=== PATIENT | female | born 1950 | race Caucasian/White ===

== ENCOUNTER 2016-11-02 13:29 | Emergency (ER) | payer OTHER ==
[~2016-11-02] VITALS: Ht 165.1 cm; Wt 70.0 kg
[2016-11-02 13:37] VITALS: BP 129/79; PULSE 68; RESP 20; TEMP 97.9; O2SAT 97
[2016-11-02] MEDS ORDERED: SODIUM CHLOR 0.9% 1000 ML INJ 1,000 ML IV SCH (13:41)
[2016-11-02] MEDS ORDERED: HYDROmorphone HCL PF 1 MG/ML VIAL IVS ONE (13:45)
[2016-11-02] MEDS ORDERED: SODIUM CHLORIDE 0.9% FLUSH 10 ML FLUSH IV FLUSH PRN (13:45)
[2016-11-02] MEDS ORDERED: ONDANSETRON HCL 4 MG/2 ML VIAL IVP ONE (13:45)
--- NOTE | 2016-11-02 13:49 | PD ---
HPI Chief Complaint: Abdominal Pain Time Seen by Provider: 13:46 Travel History International Travel<30 days: No Contact w/Intl Traveler<30days: No Traveled to known affect area: No History of Present Illness HPI 66-year-old female presents the emergency Department with sudden onset ankle lump in the lower pelvic region on the left than the right which developed while straining to have a bowel movement earlier this morning. Patient denies vomiting but has had nausea. She states she has not been passing gas since this happened. Patient has noticed a small lump in this area since recently moving to the area. Patient has never had pain prior to this event. Patient does have a history of . She denies any other significant history. She has no known drug allergies. PFSH Past Medical History Hx Anticoagulant Therapy: Yes (xarelto) Cardiovascular Problems: Yes Respiratory: Yes Social History Alcohol Use: Yes Tobacco Use: No Substance Use: No Allergies-Medications (Allergen,Severity, Reaction): Coded Allergies: No Known Allergies (Unverified , 11/02/16) Reported Meds & Prescriptions Reported Meds & Active Scripts Active Perry (Hydrocodone-Acetaminophen) 5-325 mg Tab 1-2 Tab PO Q6H PRN Ibuprofen 600 Mg Tab 600 Mg PO Q6H PRN Review of Systems ROS Limitations: Clinical Condition Except as stated in HPI: all other systems reviewed are Neg General / Constitutional: No: Fever Eyes: No: Visual changes HENT: No: Headaches Cardiovascular: No: Chest Pain or Discomfort Respiratory: No: Shortness of Breath Gastrointestinal: No: Abdominal Pain Genitourinary: No: Dysuria Musculoskeletal: No: Pain Skin: No Rash Neurologic: No: Weakness Psychiatric: No: Depression Endocrine: No: Polydipsia Hematologic/Lymphatic: No: Easy Bruising Physical Exam Exam Limitations: Clinical Condition Narrative GENERAL: Patient has moderate distress. SKIN: Warm and dry. Normal color. Normal turgor. HEAD: Atraumatic. Normocephalic. EYES: Pupils equal and round. No scleral icterus. No injection or drainage. ENT: No nasal bleeding or discharge. Mucous membranes pink and moist. Pharynx is normal. NECK: Trachea midline. Neck is supple nontender. CARDIOVASCULAR: Regular rate and rhythm. No murmurs gallops or rubs. RESPIRATORY: No accessory muscle use. Clear to auscultation. Breath sounds equal bilaterally. GASTROINTESTINAL: Abdomen soft, non-tender, nondistended. Hepatic and splenic margins not palpable. Patient is a palpable firm presumed hernia in the suprapubic region more the left than the right consistent with possible incarcerated hernia. MUSCULOSKELETAL: Extremities without clubbing, cyanosis, or edema. No obvious deformities. NEUROLOGICAL: Awake and alert. No obvious cranial nerve deficits. Motor grossly within normal limits. Five out of 5 muscle strength in the arms and legs. Normal speech. PSYCHIATRIC: Appropriate mood and affect; insight and judgment normal. Data Data Last Documented VS Vital Signs Date Time Temp Pulse Resp B/P Pulse Ox O2 Delivery O2 Flow Rate FiO2 11/02/16 13:37 97.9 68 20 129/79 97 Orders Complete Blood Count With Diff (11/02/16 13:41) Comprehensive Metabolic Panel (11/02/16 13:41) Lactic Acid (11/02/16 13:41) Prothrombin Time / Inr (Pt) (11/02/16 13:41) Iv Access Insert/Monitor (11/02/16 13:41) Ecg Monitoring (11/02/16 13:41) Oximetry (11/02/16 13:41) NPO (11/02/16 13:41) Ondansetron Inj (Zofran Inj) (11/02/16 13:45) Sodium Chlor 0.9% 1000 Ml Inj (Ns 1000 M (11/02/16 13:41) Sodium Chloride 0.9% Flush (Ns Flush) (11/02/16 13:45) Electrocardiogram (11/02/16 13:41) Hydromorphone Pf Inj (Dilaudid Pf Inj) (11/02/16 13:45) Chest, Single Ap (11/02/16 ) Oral Contrast - Adult (11/02/16 13:52) Hydromorphone Pf Inj (Dilaudid Pf Inj) (11/02/16 14:15) Propofol 200 Mg/20 Ml Inj (Diprivan 200 (11/02/16 14:30) Binder, Surg. Abdominal L/F Ea (11/02/16 15:14) Labs Laboratory Tests Test 11/02/16 11/02/16 14:00 14:30 White Blood Count 10.4 TH/MM3 Red Blood Count 4.52 MIL/MM3 Hemoglobin 13.3 GM/DL Hematocrit 40.2 % Mean Corpuscular Volume 89.0 FL Mean Corpuscular Hemoglobin 29.5 PG Mean Corpuscular Hemoglobin 33.2 % Concent Red Cell Distribution Width 13.6 % Platelet Count 204 TH/MM3 Mean Platelet Volume 10.2 FL Neutrophils (%) (Auto) 78.3 % Lymphocytes (%) (Auto) 14.9 % Monocytes (%) (Auto) 5.6 % Eosinophils (%) (Auto) 0.0 % Basophils (%) (Auto) 1.2 % Neutrophils # (Auto) 8.1 TH/MM3 Lymphocytes # (Auto) 1.5 TH/MM3 Monocytes # (Auto) 0.6 TH/MM3 Eosinophils # (Auto) 0.0 TH/MM3 Basophils # (Auto) 0.1 TH/MM3 CBC Comment DIFF FINAL Differential Comment Prothrombin Time 12.6 SEC Prothromb Time International 1.1 RATIO Ratio Sodium Level 135 MEQ/L Potassium Level 3.7 MEQ/L Chloride Level 99 MEQ/L Carbon Dioxide Level 28.1 MEQ/L Anion Gap 8 MEQ/L Blood Urea Nitrogen 14 MG/DL Creatinine 0.72 MG/DL Estimat Glomerular Filtration 81 ML/MIN Rate Random Glucose 122 MG/DL Calcium Level 9.2 MG/DL Total Bilirubin 1.1 MG/DL Aspartate Amino Transf 15 U/L (AST/SGOT) Alanine Aminotransferase 20 U/L (ALT/SGPT) Alkaline Phosphatase 99 U/L Total Protein 7.9 GM/DL Albumin 4.0 GM/DL Lactic Acid Level 1.0 mmol/L MDM Medical Decision Making Medical Screen Exam Complete: Yes Emergency Medical Condition: Yes Differential Diagnosis Acute abdominal pain. Possible hernia. Possible incarcerated hernia. Narrative Course Patient is medically stable at time of exam. Dr. Henao was called to the bedside immediately upon my exam. She agrees with my assessment. Labs ordered including CBC, CMP, lactic acid, urinalysis, and IV access is obtained. Patient is given 4 mg Zofran IV as well as 1 mg Dilantin IV. EKG and chest x-ray is ordered. 1430 hrs. hernia was reduced by Dr. Henao utilizing sedation. Please see her procedure note. Patient is felt to be stable to be discharged home with abdominal binder. Patient is to follow-up with surgical consult for possible surgical repair. Patient is sent home with ibuprofen 600 mg 4 times a day #40. Patient is also given Perry 5/325 one to 2 tabs every 6-8 hours when necessary # 20. Diagnosis Primary Impression: Hernia of anterior abdominal wall Referrals: Elvin Diaz MD call for appointment Patient Instructions: Abdominal Binder (ED), General Instructions Additional Instructions: Patient is felt to be stable to be discharged home with abdominal binder. Patient is to follow-up with surgical consult for possible surgical repair. Patient is sent home with ibuprofen 600 mg 4 times a day #40. Patient is also given Perry 5/325 one to 2 tabs every 6-8 hours when necessary # 20. Med/Other Pt SpecificInfo: Prescription(s) given Scripts Hydrocodone-Acetaminophen (Perry)5-325 mg Tab1-2 Tab PO Q6H PRN (PAIN) #20 TAB Ref 0 Prov:Ava Tariq MD 11/02/16 Ibuprofen 600 Mg Scl601 Mg PO Q6H PRN (Pain/Inflammation) #40 TAB Prov:Ava Tariq MD 11/02/16 Disposition: 01 DISCHARGE HOME Condition: Stable Ángel Jack Nov 02, 2016 13:49
--- NOTE | 2016-11-02 14:13 | RADRPT ---
EXAM DATE/TIME: 11/02/2016 13:48 [facility] COMPARISON: No previous studies available for comparison. INDICATIONS : Short of breath. MEDICAL HISTORY : None. SURGICAL HISTORY : None. ENCOUNTER: Initial ACUITY: 1 day PAIN SCORE: 9/10 LOCATION: Bilateral lower chest FINDINGS: Mild left lung base atelectasis and/or infiltrate is seen. Heart and mediastinum are unremarkable for technique. Portions of the left seventh rib is missing possibly resected surgically. CONCLUSION: Mild left lung base atelectasis and/or infiltrate is seen. Verna Gaines MD on November 02, 2016 at 14:10 Board Certified Radiologist. This report was verified electronically.
[2016-11-02] MEDS ORDERED: HYDROmorphone HCL PF 1 MG/ML VIAL IV PUSH ONE (14:15)
[2016-11-02 14:19] LABS: AUTOMATED NEUTROPHIL # 8.1 TH/MM3 (1.8-7.7); BASOPHIL # 0.1 TH/MM3 (0-0.2); BASOPHIL % 1.2 % (0.0-2.0); HEMATOCRIT 40.2 % (35.0-46.0); HEMO FLAGS DIFF FINAL; LYMPH % 14.9 % (9.0-44.0); LYMPHOCYTE # 1.5 TH/MM3 (1.0-4.8); MEAN CORPUSCULAR HEMOGLOBIN 29.5 PG (27.0-34.0); MEAN CORPUSCULAR HGB CONC 33.2 % (32.0-36.0); MONO % 5.6 % (0.0-8.0); NEUT % 78.3 % (16.0-70.0); PLATELET COUNT 204 TH/MM3 (150-450); RED BLOOD COUNT 4.52 MIL/MM3 (4.00-5.30); RED CELL DISTRIBUTION WIDTH 13.6 % (11.6-17.2); WHITE BLOOD COUNT 10.4 TH/MM3 (4.0-11.0)
[2016-11-02] MEDS ORDERED: PROPOFOL 200 MG/20 ML AMP IV ONE (14:30)
[2016-11-02 14:32] LABS: INTERNATIONAL NORMALIZED RATIO 1.1 RATIO; PROTHROMBIN TIME - PATIENT 12.6 SEC (9.8-11.6)
--- NOTE | 2016-11-02 14:39 | PD ---
Data Data Last Documented VS Vital Signs Date Time Temp Pulse Resp B/P Pulse Ox O2 Delivery O2 Flow Rate FiO2 11/02/16 13:37 97.9 68 20 129/79 97 Orders Complete Blood Count With Diff (11/02/16 13:41) Comprehensive Metabolic Panel (11/02/16 13:41) Lactic Acid (11/02/16 13:41) Prothrombin Time / Inr (Pt) (11/02/16 13:41) Urinalysis - C+S If Indicated (11/02/16 13:41) Iv Access Insert/Monitor (11/02/16 13:41) Ecg Monitoring (11/02/16 13:41) Oximetry (11/02/16 13:41) NPO (11/02/16 13:41) Ondansetron Inj (Zofran Inj) (11/02/16 13:45) Sodium Chlor 0.9% 1000 Ml Inj (Ns 1000 M (11/02/16 13:41) Sodium Chloride 0.9% Flush (Ns Flush) (11/02/16 13:45) Electrocardiogram (11/02/16 13:41) Hydromorphone Pf Inj (Dilaudid Pf Inj) (11/02/16 13:45) Chest, Single Ap (11/02/16 ) Oral Contrast - Adult (11/02/16 13:52) Hydromorphone Pf Inj (Dilaudid Pf Inj) (11/02/16 14:15) Propofol 200 Mg/20 Ml Inj (Diprivan 200 (11/02/16 14:30) Labs Laboratory Tests Test 11/02/16 14:00 White Blood Count 10.4 TH/MM3 Red Blood Count 4.52 MIL/MM3 Hemoglobin 13.3 GM/DL Hematocrit 40.2 % Mean Corpuscular Volume 89.0 FL Mean Corpuscular Hemoglobin 29.5 PG Mean Corpuscular Hemoglobin 33.2 % Concent Red Cell Distribution Width 13.6 % Platelet Count 204 TH/MM3 Mean Platelet Volume 10.2 FL Neutrophils (%) (Auto) 78.3 % Lymphocytes (%) (Auto) 14.9 % Monocytes (%) (Auto) 5.6 % Eosinophils (%) (Auto) 0.0 % Basophils (%) (Auto) 1.2 % Neutrophils # (Auto) 8.1 TH/MM3 Lymphocytes # (Auto) 1.5 TH/MM3 Monocytes # (Auto) 0.6 TH/MM3 Eosinophils # (Auto) 0.0 TH/MM3 Basophils # (Auto) 0.1 TH/MM3 CBC Comment DIFF FINAL Differential Comment Prothrombin Time 12.6 SEC Prothromb Time International 1.1 RATIO Ratio MDM Medical Record Reviewed: Yes Supervised Visit with BRAD: No Procedures Procedure Narrative After the risks and benefits were discussed the following procedure was performed: MODERATE SEDATION: The patient was placed on a groundwater monitoring technician and pulse oximetry. An ambu bag and suction was immediately available at bedside. The patient was monitored by the nurse. Oxygen saturation , heart rate and blood pressure were monitored. Procedural sedation was acheived using Propofol. The patient was observed until awake and alert. Procedural Sedation time in attendance was 10 minutes. Diagnosis Primary Impression: Hernia of anterior abdominal wall Referrals: Elvin Diaz MD call for appointment Patient Instructions: General Instructions Disposition: 01 DISCHARGE HOME Condition: Stable Bi Kelsey MD Nov 02, 2016 14:39
[2016-11-02 14:41] LABS: ANION GAP 8 MEQ/L (5-15); AST (GOT) 15 U/L (15-37); BICARBONATE 28.1 MEQ/L (21.0-32.0); BLOOD UREA NITROGEN 14 MG/DL (7-18); CHLORIDE 99 MEQ/L (98-107); GLOMERULAR FILTRATION RATE 81 ML/MIN (>89); POTASSIUM 3.7 MEQ/L (3.5-5.1); SODIUM (NA) 135 MEQ/L (136-145)
[2016-11-02 14:44] LABS: ALKALINE PHOSPHATASE 99 U/L (45-117); ALT (GPT) 20 U/L (10-53); TOTAL BILIRUBIN ADULT 1.1 MG/DL (0.2-1.0)
--- NOTE | 2016-11-02 14:45 | PD ---
Data Data Last Documented VS Vital Signs Date Time Temp Pulse Resp B/P Pulse Ox O2 Delivery O2 Flow Rate FiO2 11/02/16 13:37 97.9 68 20 129/79 97 Orders Complete Blood Count With Diff (11/02/16 13:41) Comprehensive Metabolic Panel (11/02/16 13:41) Lactic Acid (11/02/16 13:41) Prothrombin Time / Inr (Pt) (11/02/16 13:41) Iv Access Insert/Monitor (11/02/16 13:41) Ecg Monitoring (11/02/16 13:41) Oximetry (11/02/16 13:41) NPO (11/02/16 13:41) Ondansetron Inj (Zofran Inj) (11/02/16 13:45) Sodium Chlor 0.9% 1000 Ml Inj (Ns 1000 M (11/02/16 13:41) Sodium Chloride 0.9% Flush (Ns Flush) (11/02/16 13:45) Electrocardiogram (11/02/16 13:41) Hydromorphone Pf Inj (Dilaudid Pf Inj) (11/02/16 13:45) Chest, Single Ap (11/02/16 ) Oral Contrast - Adult (11/02/16 13:52) Hydromorphone Pf Inj (Dilaudid Pf Inj) (11/02/16 14:15) Propofol 200 Mg/20 Ml Inj (Diprivan 200 (11/02/16 14:30) Labs Laboratory Tests Test 11/02/16 14:00 White Blood Count 10.4 TH/MM3 Red Blood Count 4.52 MIL/MM3 Hemoglobin 13.3 GM/DL Hematocrit 40.2 % Mean Corpuscular Volume 89.0 FL Mean Corpuscular Hemoglobin 29.5 PG Mean Corpuscular Hemoglobin 33.2 % Concent Red Cell Distribution Width 13.6 % Platelet Count 204 TH/MM3 Mean Platelet Volume 10.2 FL Neutrophils (%) (Auto) 78.3 % Lymphocytes (%) (Auto) 14.9 % Monocytes (%) (Auto) 5.6 % Eosinophils (%) (Auto) 0.0 % Basophils (%) (Auto) 1.2 % Neutrophils # (Auto) 8.1 TH/MM3 Lymphocytes # (Auto) 1.5 TH/MM3 Monocytes # (Auto) 0.6 TH/MM3 Eosinophils # (Auto) 0.0 TH/MM3 Basophils # (Auto) 0.1 TH/MM3 CBC Comment DIFF FINAL Differential Comment Prothrombin Time 12.6 SEC Prothromb Time International 1.1 RATIO Ratio Sodium Level 135 MEQ/L Potassium Level 3.7 MEQ/L Chloride Level 99 MEQ/L Carbon Dioxide Level 28.1 MEQ/L Anion Gap 8 MEQ/L Blood Urea Nitrogen 14 MG/DL Creatinine 0.72 MG/DL Estimat Glomerular Filtration 81 ML/MIN Rate Random Glucose 122 MG/DL Calcium Level 9.2 MG/DL Aspartate Amino Transf 15 U/L (AST/SGOT) Albumin 4.0 GM/DL MDM Supervised Visit with BRAD: Yes Narrative Course I, Dr. Tariq, have reviewed the advance practice practioner's documentation and am in agreement, met with the patient face to face, made the diagnosis, and the medical decision making was done by me. *My assessment and Findings: 66-year-old female here with complaint of pain in the abdomen and lump in the lower pelvic region after straining while having a bowel movement this morning. No flatus since, some nausea but no vomiting. On exam patient has palpable hernia in the right suprainguinal region. The remainder of her abdominal exam is unremarkable though she has quite significant tenderness to palpation in the hernia region. Consistent with incarcerated hernia. She was given Dilaudid 1 mg without improvement of her pain. She was given second dose of Dilaudid 1 mg with really little improvement of her pain and I was not able to reduce due to pain management. Patient was therefore sedated, please see procedure note, and reduction performed successfully. Patient tolerated procedure well. After which time patient felt improved, was able tolerate oral challenge and will be discharged home with hernia belt and outpatient surgery follow-up for surgical repair. Procedures Procedure Narrative Slow steady pressure was applied over the hernia sac with successful reduction of bowel contents into the peritoneal compartment. Diagnosis Primary Impression: Hernia of anterior abdominal wall Referrals: Elvin Diaz MD call for appointment Patient Instructions: General Instructions Disposition: 01 DISCHARGE HOME Condition: Stable Ava Tariq MD Nov 02, 2016 14:45
[2016-11-02] MEDS ORDERED: IBUP-232 PO (16:00)
[2016-11-02] MEDS ORDERED: NORC5TAB PO (16:00)
[2016-11-02 16:20] VITALS: RESP 18
== END 2016-11-02 18:13 | disposition home or self-care (01) ==
LOC: NEPE 13:29
DX: K43.9 Ventral hernia without obstruction or gangrene (principal); Z79.01 Long term (current) use of anticoagulants
CPT/HCPCS: 49999; 71010; 80053; 83605; 85025; 85610; 96374; 96375; 99156; 99284; J1170; J2405; J7030

== ENCOUNTER 2018-05-12 19:37 | Inpatient (IN) ==
[2018-05-12] MEDS ORDERED: Sod Chloride 0.9% Inj 1,000 ML IV.SIG ONE (20:18)
--- NOTE | 2018-05-12 20:37 | ED ---
HPI General Chief Complaint: Abdominal Pain Stated Complaint: Constipation x 1 wk Time Seen by Provider: 05/12/18 19:59 Source: patient Mode of arrival: ambulatory Limitations: no limitations History of Present Illness HPI narrative: Patient is a 67-year-old female, past medical history significant for COPD, hypertension, hypothyroidism, bilateral inguinal hernias, who presents with complaint of abdominal pain and distention. She states that approximately 6-7 days ago she did a bowel cleanout and prep for colonoscopy. The next day she had a colonoscopy and has not had a bowel movement since. She is not passing gas. She has had nausea but no vomiting. She feels that her abdomen has been gradually distending and causing more discomfort. She has no appetite. No fever nor chills. This has never happened before. No chest pain or shortness of breath. MD complaint: Reports abdominal pain Pain Consistency: constant Location: Reports diffuse Severity: moderate Quality: Reports fullness Radiation: Reports none Migration to: Reports no migration Relieving factors: nothing Exacerbating factors: nothing Associated symptoms: Reports nausea and constipation Related Data Home Medications Medication Instructions Recorded Confirmed amlodipine 5 mg PO DAILY 05/09/18 05/12/18 aspirin 81 mg PO DAILY 05/09/18 05/12/18 budesonide-formoterol [Symbicort] 2 puff INHALATION BID 05/09/18 05/12/18 carvedilol 12.5 mg PO BID 05/09/18 05/12/18 hydrochlorothiazide 12.5 mg PO DAILY 05/09/18 05/12/18 levothyroxine 25 mcg PO DAILY 05/09/18 05/12/18 omeprazole 20 mg PO DAILY 05/09/18 05/12/18 quetiapine 200 mg PO DAILY 05/09/18 05/12/18 simvastatin 20 mg PO QPM 05/09/18 05/12/18 Previous Rx's Medication Instructions Recorded tramadol [Ultram] 50 mg PO Q6H PRN #12 tab 05/09/18 Allergies Allergy/AdvReac Type Severity Reaction Status Date / Time No Known Allergies Allergy Verified 05/12/18 19:45 Review of Systems ROS: all other systems reviewed are negative [facility] Medical History Medical History Bilateral inguinal hernia (Acute) COPD (chronic obstructive pulmonary disease) (Acute) HTN (hypertension) (Acute) Hx pulmonary embolism (Acute) Hypothyroid (Acute) Insomnia (Acute) Surgical History Surgical History H/O breast augmentation (Acute) H/O section (Acute) H/O lumbar discectomy (Acute) History of back surgery (Acute) History of repair of hiatal hernia (Acute) Social History Social History Substance History: No History of Abuse Second Hand Smoke Exposure: No Smoking Status: Never smoker How Often Do You Have a Drink Containing Alcohol: Never Recent Travel in [facility] within the Last 8 Weeks: No Recent Out of Country Travel within the Last 8 Weeks: No Immunization History Tetanus Immunization: <5 Years Exam Narrative Exam Narrative: GENERAL: Well-appearing female in no acute distress SKIN: Focused skin assessment warm/dry. No rashes. HEAD: Atraumatic. Normocephalic. EYES: Pupils equal and round. No scleral icterus. No injection or drainage. ENT: No nasal bleeding or discharge. Mucous membranes pink and dry. NECK: Trachea midline. No JVD. CARDIOVASCULAR: Regular rate and rhythm. No murmur appreciated. Intact and equal peripheral pulses. Normal cap refill. RESPIRATORY: No accessory muscle use. Clear to auscultation. Breath sounds equal bilaterally. GASTROINTESTINAL: Abdomen soft, distended with slight tenderness. Hepatic and splenic margins not palpable. MUSCULOSKELETAL: No obvious deformities. No clubbing. No cyanosis. No edema. NEUROLOGICAL: Awake and alert. No obvious cranial nerve deficits. Motor grossly within normal limits. Normal speech. PSYCHIATRIC: Appropriate mood and affect; insight and judgment normal. Course Initial Documented Vital Signs Temperature 98.7 F 05/12/18 19:46 Pulse Rate 115 H 05/12/18 19:46 Respiratory Rate 20 05/12/18 19:46 Blood Pressure 104/75 05/12/18 19:46 Pulse Oximetry 97 05/12/18 19:46 Last Documented Vital Signs Temperature 98.7 F 05/12/18 19:46 Pulse Rate 72 05/12/18 21:03 Respiratory Rate 16 05/12/18 21:03 Blood Pressure 127/62 05/12/18 21:03 Pulse Oximetry 98 05/12/18 21:03 Medical Decision Making MDM Narrative Medical decision making narrative: Patient is a 67-year-old female who presents with complaint of abdominal pain with distention and nausea but no vomiting in addition to constipation and obstipation. She appears well and is hemodynamically stable. She has not peritonitic on exam. Labs reveal slightly decreased potassium but are otherwise relatively unremarkable except for ketones in the urine. CT shows a small bowel obstruction. NG tube has been placed for decompression and she has been admitted to the hospitalist service. Dr. Sena, hospitalist on-call, agreed to admission. General surgery will be consulted in the morning. Medical Screen Exam Complete: Yes Emergency Medical Condition: Yes Differential Diagnosis Differential Diagnosis: Differential diagnosis includes but is not limited to volvulus, small bowel obstruction, large bowel obstruction, constipation, impaction. Medical Records Medical records reviewed: Yes I reviewed the patient's medical records. Lab Data Lab results reviewed: Yes I reviewed the patient's lab results. Result diagrams: 05/12/18 20:37 05/12/18 20:37 Lab Results 05/12/18 05/12/18 05/12/18 Range/Units 20:37 20:37 20:37 CBC w Diff Slide review pending WBC 4.1 (4.0-11.0) th/mm3 RBC 4.19 (4.00-5.30) mil/mm3 Hgb 13.2 (11.6-15.3) gm/dL Hct 39.3 (35.0-46.0) % MCV 93.7 (80.0-100.0) fL MCH 31.5 (27.0-34.0) pg MCHC 33.6 (32.0-36.0) % RDW 12.1 (11.6-17.2) % Plt Count 301 D (150-450) th/mm3 MPV 8.9 (7.0-11.0) fL WBC Differential Manual diff final Seg Neuts % (Manual) 56 (16-70) % Band Neuts % (Manual) 9 H (0-6) % Lymphocytes % (Manual) 13 (9-44) % Monocytes % (Manual) 21 H (0-8) % Basophils % (Manual) 1 (0-2) % Abs Neuts (Manual) 2.7 (1.8-7.7) th/mm3 Differential Comment . Platelet Estimate Normal (Normal) Platelet Morphology Normal (Normal) Sodium 135 L (136-145) meq/L Potassium 3.1 L (3.5-5.1) meq/L Chloride 101 (98-107) meq/L Carbon Dioxide 19.3 L (21.0-32.0) meq/L Anion Gap 15 (5-15) meq/L BUN 9 (7-18) mg/dL Creatinine 0.66 (0.50-1.00) mg/dL Estimated GFR Greater than 89 (>89) mL/min Random Glucose 97 (74-106) mg/dL Lactic Acid 1.4 (0.4-2.0) mmol/L Calcium 8.1 L (8.5-10.1) mg/dL Magnesium 1.9 (1.5-2.5) mg/dL Total Bilirubin 0.7 (0.2-1.0) mg/dL AST 18 (15-37) U/L ALT 19 (10-53) U/L Alkaline Phosphatase 118 H (45-117) U/L Total Protein 6.9 (6.4-8.2) g/dL Albumin 3.0 L (3.4-5.0) g/dL Lipase 166 (73-393) U/L Urine Color (Yellw/Straw) Urine Clarity (Clear) Urine pH (5.0-8.5) Ur Specific [place] (1.002-1.035) Urine Protein (Neg-Trace) mg/dL Urine Glucose (UA) (Negative) mg/dL Urine Ketones (Negative) mg/dL Urine Occult Blood (Negative) Urine Nitrate (Negative) Urine Bilirubin (Negative) Urine Ictotest (Negative) Urine Urobilinogen (Less than 2) mg/dL Ur Leukocyte Esterase (Negative) Urine WBC (0-5) /hpf Ur Squamous Epith Cells (0-5) /hpf Urine Bacteria (None) /hpf Hyaline Casts (0-3) /lpf Urine Mucus (Occasional) /lpf Micro UA Comment Ur Microscopic Review Urine Culture Comments 05/12/18 Range/Units 21:48 CBC w Diff WBC (4.0-11.0) th/mm3 RBC (4.00-5.30) mil/mm3 Hgb (11.6-15.3) gm/dL Hct (35.0-46.0) % MCV (80.0-100.0) fL MCH (27.0-34.0) pg MCHC (32.0-36.0) % RDW (11.6-17.2) % Plt Count (150-450) th/mm3 MPV (7.0-11.0) fL WBC Differential Seg Neuts % (Manual) (16-70) % Band Neuts % (Manual) (0-6) % Lymphocytes % (Manual) (9-44) % Monocytes % (Manual) (0-8) % Basophils % (Manual) (0-2) % Abs Neuts (Manual) (1.8-7.7) th/mm3 Differential Comment Platelet Estimate (Normal) Platelet Morphology (Normal) Sodium (136-145) meq/L Potassium (3.5-5.1) meq/L Chloride (98-107) meq/L Carbon Dioxide (21.0-32.0) meq/L Anion Gap (5-15) meq/L BUN (7-18) mg/dL Creatinine (0.50-1.00) mg/dL Estimated GFR (>89) mL/min Random Glucose (74-106) mg/dL Lactic Acid (0.4-2.0) mmol/L Calcium (8.5-10.1) mg/dL Magnesium (1.5-2.5) mg/dL Total Bilirubin (0.2-1.0) mg/dL AST (15-37) U/L ALT (10-53) U/L Alkaline Phosphatase (45-117) U/L Total Protein (6.4-8.2) g/dL Albumin (3.4-5.0) g/dL Lipase (73-393) U/L Urine Color Yellow (Yellw/Straw) Urine Clarity Clear (Clear) Urine pH 6.0 (5.0-8.5) Ur Specific [place] Greater/equal 1.030 (1.002-1.035) Urine Protein Negative (Neg-Trace) mg/dL Urine Glucose (UA) Negative (Negative) mg/dL Urine Ketones 80 or greater H (Negative) mg/dL Urine Occult Blood Negative (Negative) Urine Nitrate Negative (Negative) Urine Bilirubin Negative (Negative) Urine Ictotest Negative (Negative) Urine Urobilinogen 0.2 (Less than 2) mg/dL Ur Leukocyte Esterase Negative (Negative) Urine WBC 0-5 (0-5) /hpf Ur Squamous Epith Cells 0-5 (0-5) /hpf Urine Bacteria Rare H (None) /hpf Hyaline Casts 4-10 H (0-3) /lpf Urine Mucus Few H (Occasional) /lpf Micro UA Comment Culture not ind Ur Microscopic Review Microscopic reviewed Urine Culture Comments Culture not ind Imaging Data Attestation: I personally reviewed and interpreted this imaging study as follows : Radiologist's impression: Abdomen/Pelvis CT 05/12/18 20:18 CONCLUSION: 1. CT findings of a small bowel obstruction with a transition identified in the right lateral abdomen in the region of the terminal ileum. The distal terminal ileum is completely decompressed. 2. Right inguinal hernia measuring 5 cm in diameter again contains fat and fluid. It also appears to contain the right-sided dome or urachus of the urinary bladder. 3. Small moderate-sized hiatal hernia. Discharge Plan Discharge Disposition Patient Disposition: 30 Still Patient Discharge Condition Condition: Stable Discharge Details Diagnosis: Small bowel obstruction Physicians Team ED Provider: Sri Rascon Primary Care Provider: NON STAFF,PROVIDER Rxs /Orders / Referrals /Forms Prescriptions: No Action levothyroxine 25 mcg Tablet 25 mcg PO DAILY RF: 0 budesonide-formoterol [Symbicort] 160-4.5 mcg/actuation Hfa Aerosol Inhaler 2 puff INHALATION BID RF: 0 carvedilol 12.5 mg Tablet 12.5 mg PO BID RF: 0 quetiapine 200 mg Tablet 200 mg PO DAILY RF: 0 amlodipine 5 mg Tablet 5 mg PO DAILY RF: 0 simvastatin 20 mg Tablet 20 mg PO QPM RF: 0 aspirin 81 mg Tablet,Chewable 81 mg PO DAILY RF: 0 hydrochlorothiazide 12.5 mg Tablet 12.5 mg PO DAILY RF: 0 omeprazole 20 mg Tablet,Delayed Release (Dr/Ec) 20 mg PO DAILY RF: 0 tramadol [Ultram] 50 mg tablet 50 mg PO Q6H PRN (Reason: pain) Qty: 12 RF: 0 Discharge Interventions Interventions: Vital Signs Last Done: 05/12/18 21:03 Status ED Status: With Doctor
[2018-05-12 20:56] LABS: Chloride 101 meq/L (98-107); Potassium 3.1 meq/L (3.5-5.1); Sodium 135 meq/L (136-145)
[2018-05-12 20:57] LABS: Hematocrit 39.3 % (35.0-46.0); Hemoglobin 13.2 gm/dL (11.6-15.3); Mean Corpuscular HGB Conc 33.6 % (32.0-36.0); Mean Corpuscular Hemoglobin 31.5 pg (27.0-34.0); Mean Corpuscular Volume 93.7 fL (80.0-100.0); Mean Platelet Volume 8.9 fL (7.0-11.0); Platelet Count 301 th/mm3 (150-450); Red Blood Count 4.19 mil/mm3 (4.00-5.30); Red Cell Distribution Width 12.1 % (11.6-17.2); White Blood Count 4.1 th/mm3 (4.0-11.0)
[2018-05-12 20:59] LABS: Calcium 8.1 mg/dL (8.5-10.1)
[2018-05-12 21:36] LABS: Lymphocytes 13 % (9-44); Monocytes 21 % (0-8)
[2018-05-12 21:38] LABS: Platelet Estimate Normal (Normal); Platelet Morphology Normal (Normal)
[2018-05-12 21:48] LABS: Alanine Aminotransferase 19 U/L (10-53); Alkaline Phosphatase 118 U/L (45-117); Anion Gap 15 meq/L (5-15); Aspartate Aminotransferase 18 U/L (15-37); Blood Urea Nitrogen 9 mg/dL (7-18); Carbon Dioxide 19.3 meq/L (21.0-32.0); Glomerular Filtration Rate Greater Than 89 mL/min (>89); Glucose,Random 97 mg/dL (74-106); Lipase 166 U/L (73-393); Magnesium 1.9 mg/dL (1.5-2.5); Total Protein 6.9 g/dL (6.4-8.2)
[2018-05-12 21:54] LABS: Clarity,Urine Clear (Clear); Color,Urine Yellow (Yellw/Straw); Glucose,Urine (UA) Negative (Negative); Leukocyte Esterase,Urine Negative (Negative); Nitrite,Urine Negative (Negative); Specific Gravity,Urine Greater/Equal 1.030 (1.002-1.035); Urobilinogen,Urine 0.2 mg/dL (Less than 2)
[2018-05-12 21:55] LABS: Bilirubin,Urine Negative (Negative); Ictotest,Urine Negative (Negative)
[2018-05-12 21:58] LABS: Squamous Epithelial Cell,Urine 0-5 /hpf (0-5); WBC,Urine 0-5 /hpf (0-5)
[2018-05-12 21:59] LABS: Bacteria,Urine Rare /hpf; Mucus,Urine Few /lpf (Occasional)
--- NOTE | 2018-05-12 22:41 | CT ---
EXAM DATE: 05/12/2018 10:12 PM EDT AGE/SEX: 67 years / Female INDICATIONS: Abdominal pain. Distention. Constipation. Weakness. CLINICAL DATA: This is the patient's initial encounter. Patient reports that signs and symptoms have been present for 3 days and indicates a pain score of 8/10. MEDICAL/SURGICAL HISTORY: Hypertension. Chronic obstructive pulmonary disease. Inguinal hernia . section. Discectomy, lumbar. Hiatal hernia repair. ORAL CONTRAST: No oral contrast ingested. RADIATION DOSE: 11.58 CTDI (mGy) COMPARISON: [facility] [place], CT ABDOMEN & PELVIS W/O CONTRAST, 05/09/2018. . TECHNIQUE: Multiple contiguous axial images were obtained through the abdomen and pelvis following b olus infusion of 100 ml Omnipaque 350 (iohexol) nonionic water-soluble contrast as a single exam do se. No oral contrast ingested. Using automated exposure control and adjustment of the mA and/or kV a ccording to patient size, radiation dose was kept as low as reasonably achievable to obtain optimal d iagnostic quality images. DICOM format image data is available electronically for review and compari son. FINDINGS: Lower Lungs: Atelectatic changes in both lung bases, left greater than right. Bilateral breast augmen tation. Small to moderate size hiatal hernia. Liver: The liver has a homogeneous density without space-occupying lesion. There is no dilation of th e biliary tree. Spleen: Homogeneous density without enlargement. Pancreas: Unremarkable without mass or calcification. Kidneys: Normal in size and shape. No evidence of mass or hydronephrosis. Adrenal Glands: Unremarkable. Aorta: The aorta and proximal iliac vessels are grossly unremarkable without aneurysmal dilation. Bowel/Mesentery: There are now CT findings of a small bowel obstruction with a transition laterally in the right midabdomen. This is in the region of the terminal ileum. The terminal ileum is completel y decompressed the bowel proximal to this area markedly distended. Abdominal Wall: Intact. Retroperitoneum: No evidence of adenopathy in the retrocrural, para-aortic, or deep pelvic regions. Bladder: Contours are smooth. Reproductive Organs: No abnormal masses or calcifications seen. Inguinal: As seen previously, there is a right inguinal hernia which contains fat and fluid measurin g about 5 cm in diameter. This appears to contain the right dome of the urinary bladder Bony Structures: Old healed fracture deformities of the right thoracic ribs. Post Contrast: No abnormal areas of enhancement seen. CONCLUSION: 1. CT findings of a small bowel obstruction with a transition identified in the right lateral abdome n in the region of the terminal ileum. The distal terminal ileum is completely decompressed. 2. Right inguinal hernia measuring 5 cm in diameter again contains fat and fluid. It also appears to contain the right-sided dome or urachus of the urinary bladder. 3. Small moderate-sized hiatal hernia. Electronically signed by: Hay Amaya MD 05/12/2018 10:40 PM EDT
[2018-05-12] MEDS ORDERED: Bisacodyl 10 MG Supp RECTAL PRN (22:54)
[2018-05-12] MEDS: Sod Chloride 0.9% Inj 1,000 ML IV.CONT SCH (23:43)
[2018-05-13] MEDS: Morphine Sulfate Inj 2 MG/ML Vial IV.PUSH PRN ×5 (00:32→20:11)
[2018-05-13 06:46] LABS: Baso % (Auto) 0.8 % (0.0-2.0); Eos % (Auto) 0.1 % (0.0-4.0); Hematocrit 31.7 % (35.0-46.0); Hemoglobin 10.6 gm/dL (11.6-15.3); Lymph # (Auto) 0.8 th/mm3 (1.0-4.8); Lymph % (Auto) 22.1 % (9.0-44.0); Mean Corpuscular HGB Conc 33.6 % (32.0-36.0); Mean Corpuscular Hemoglobin 31.8 pg (27.0-34.0); Mean Corpuscular Volume 94.8 fL (80.0-100.0); Mean Platelet Volume 8.6 fL (7.0-11.0); Mono # (Auto) 0.8 th/mm3 (0.0-0.9); Mono % (Auto) 23.6 % (0.0-8.0); Neut # (Auto) 1.8 th/mm3 (1.8-7.7); Neut % (Auto) 53.4 % (16.0-70.0); Platelet Count 276 th/mm3 (150-450); Red Blood Count 3.34 mil/mm3 (4.00-5.30); Red Cell Distribution Width 12.1 % (11.6-17.2); White Blood Count 3.4 th/mm3 (4.0-11.0)
[2018-05-13 07:14] LABS: Alanine Aminotransferase 15 U/L (10-53); Albumin 2.6 g/dL (3.4-5.0); Alkaline Phosphatase 93 U/L (45-117); Anion Gap 15 meq/L (5-15); Aspartate Aminotransferase 14 U/L (15-37); Blood Urea Nitrogen 7 mg/dL (7-18); Calcium 7.4 mg/dL (8.5-10.1); Carbon Dioxide 18.3 meq/L (21.0-32.0); Chloride 108 meq/L (98-107); Glomerular Filtration Rate Greater Than 89 mL/min (>89); Glucose,Random 85 mg/dL (74-106); Sodium 141 meq/L (136-145); Total Protein 5.7 g/dL (6.4-8.2)
[2018-05-13 07:31] LABS: Lymphocytes 26 % (9-44); Monocytes 9 % (0-8)
[2018-05-13 07:32] LABS: RBC Morphology Normal (Normal)
[2018-05-13] MEDS: Senna/Docusate Sodium 8.6/50 MG Tablet PO SCH (08:43)
[2018-05-13] MEDS ORDERED: Senna/Docusate Sodium 8.6/50 MG Tablet PO SCH (09:00)
--- NOTE | 2018-05-13 10:12 | P.HPIM ---
History of Present Illness Primary Care Physician: PROVIDER NON STAFF Chief Complaint: constipation History of Present Illness: patient is a 67 y/o female with history of hypertension, COPD , hernia repair, who presented to ER with constipation.she says that she hasn't had any bowel movement since last week and she couldn't pass any gas. later she started to have generalized abdominal discomfort. she had some nausea but with no emesis. she denies any fever or chills. Inpatient Certification: I certify that the inpatient services were ordered in accordance with Medicare regulations governing the order. This includes certification that hospital inpatient services are reasonable and necessary and in the case of services not specified as inpatient-only under 42 CFR 419.22(n), that they are appropriately provided as inpatient services in accordance to with the 2-midnight benchmark under 43 CFR 412.3(e) Estimated Total Length of Stay (Days): 2 Plans for Post Hospital Care: Not yet determined Review of Systems All other systems reviewed negative except as stated in HPI PMFSH - History History Provided By: Patient - Medical History Medical History: Medical History (Last Reviewed 05/13/18 @ 10:10 by Curt Babcock MD) Bilateral inguinal hernia COPD (chronic obstructive pulmonary disease) HTN (hypertension) Hx pulmonary embolism Hypothyroid Insomnia - Surgical History Surgical History: Surgical History (Last Reviewed 05/13/18 @ 10:10 by Curt Babcock MD) H/O breast augmentation H/O section H/O lumbar discectomy History of back surgery History of repair of hiatal hernia - Family History Family History: Family History (Last Updated 05/13/18 @ 10:10 by Curt Babcock MD) Other No pertinent family history - Tobacco History Second Hand Smoke Exposure: No Tobacco Use In Past 30 Days: No Smoking Status: Former smoker - Alcohol History How Often Do You Have a Drink Containing Alcohol: Never - Substance Use History Substance History: No History of Abuse - Travel History Recent Travel in the [place] Within the Last 8 Weeks: No Recent Travel Out of the Country Within the Last 8 Weeks: No - Immunization History Tetanus Immunization: <5 Years Hx Influenza Vaccine This Season: No Medications and Allergies Active Medications: Active Medications Al Hydroxide/Mg Hydroxide (Milk Of Magntrish Liq) 30 ml PO Q12H PRN PRN Reason: Mild Constipation Bisacodyl (Dulcolax Supp) 10 mg RECTAL DAILY PRN PRN Reason: SEVERE CONSITIPATION Budesonide/Formoterol Fumarate (Symbicort 160/4.5 Mcg Inh) 2 puff INH BID AMBROCIO Sodium Chloride (Ns Inj) 1,000 mls @ 100 mls/hr IV.CONT .Q10H AMBROCIO Last Infusion: 05/13/18 06:21 Dose: 100 mls/hr Potassium Chloride (Kcl 20 Meq Premix Inj) 20 meq in 100 mls @ 50 mls/hr IV.SIG Q2H AMBROCIO Stop: 05/13/18 14:06 Lactulose (Lactulose Liq) 30 ml PO DAILY PRN PRN Reason: SEVERE CONSITIPATION Metoclopramide HCl (Reglan Inj) 10 mg IV.PUSH Q8H AMBROCIO; Protocol Last Admin: 05/13/18 06:22 Dose: 10 mg Morphine Sulfate (Morphine Inj) 2 mg IV.PUSH Q4H PRN PRN Reason: PAIN 6-10 Last Admin: 05/13/18 06:22 Dose: 2 mg Ondansetron HCl (Zofran Inj) 4 mg IV.PUSH Q6H PRN PRN Reason: NAUSEA OR VOMITING Last Admin: 05/13/18 00:32 Dose: 4 mg Senna/Docusate Sodium (Samantha-Colace) 1 tab PO BID AMBROCIO Last Admin: 05/13/18 08:43 Dose: Not Given Sennosides (Senokot) 17.2 mg PO Q12H PRN PRN Reason: Moderate Constipation Sodium Chloride (Ns Flush) 2 ml IV.FLUSH PRN PRN PRN Reason: FLUSH AFTER USING IV ACCESS Allergies Allergy/AdvReac Type Severity Reaction Status Date / Time No Known Allergies Allergy Verified 05/12/18 19:45 Home Medications Medication Instructions Recorded Confirmed Type amlodipine 5 mg PO DAILY 05/09/18 05/12/18 History aspirin 81 mg PO DAILY 05/09/18 05/12/18 History budesonide-formoterol [Symbicort] 2 puff INHALATION BID 05/09/18 05/12/18 History carvedilol 12.5 mg PO BID 05/09/18 05/12/18 History hydrochlorothiazide 12.5 mg PO DAILY 05/09/18 05/12/18 History levothyroxine 25 mcg PO DAILY 05/09/18 05/12/18 History omeprazole 20 mg PO DAILY 05/09/18 05/12/18 History quetiapine 200 mg PO HS 05/09/18 05/13/18 History simvastatin 20 mg PO QPM 05/09/18 05/12/18 History Exam Vital signs: Vital Signs 05/12/18 19:46 05/12/18 21:03 05/13/18 00:00 Temperature 98.7 F 98.8 F Pulse Rate 115 H 72 91 H Respiratory Rate 20 16 16 Blood Pressure 104/75 127/62 119/70 Pulse Oximetry 97 98 96 05/13/18 08:00 Temperature 98.5 F Pulse Rate 90 Respiratory Rate 20 Blood Pressure 104/62 Pulse Oximetry 96 Intake & Output 05/12/18 05/13/18 05/13/18 18:59 06:59 18:59 Intake Total 1616 / 1616 0 / 0 Balance 1616 / 1616 0 / 0 Weight 71 kg Intake: IV 1616 / 1616 NS Inj 1,000 ML @ 100 mls/hr IV 616 / 616 .CONT .Q10H AMBROCIO Rx#:[id number] NS Inj 1,000 ML @ Wide Open IV. 1000 / 1000 SIG BOLUS ONE Rx#:[id number] Oral 0 / 0 Other: # Voids 2 Date of Last Bowel Movement 05/06/18 05/06/18 Weight On Admission 71 kg - Constitutional no acute distress - Routine HEENT Exam Eye: Present: PERRL - Routine Neck Exam Present: supple - Routine Respiratory Exam Present: CTA bilaterally - Routine Cardiovascular Exam Present: RRR - Routine Abdominal Exam Present: soft, tenderness (mild generalized abdominal tenderness.) - Routine Neurological Exam Present: alert, oriented X3 Results - Labs CBC & Chem 7: 05/13/18 06:17 05/13/18 06:17 Labs: Short CBC 05/12/18 05/13/18 Range/Units 20:37 06:17 WBC 4.1 3.4 L (4.0-11.0) th/mm3 Hgb 13.2 10.6 L D (11.6-15.3) gm/dL Hct 39.3 31.7 L (35.0-46.0) % Plt Count 301 D 276 (150-450) th/mm3 BMP 05/12/18 05/13/18 20:37 06:17 Sodium 135 L 141 Potassium 3.1 L 3.0 L Chloride 101 108 H Carbon Dioxide 19.3 L 18.3 L BUN 9 7 Creatinine 0.66 0.49 L Calcium 8.1 L 7.4 L* Liver Function 05/12/18 05/13/18 Range/Units 20:37 06:17 Total Bilirubin 0.7 0.7 (0.2-1.0) mg/dL AST 18 14 L (15-37) U/L ALT 19 15 (10-53) U/L Alkaline Phosphatase 118 H 93 (45-117) U/L Albumin 3.0 L 2.6 L (3.4-5.0) g/dL Urine 05/12/18 Range/Units 21:48 Urine Color Yellow (Yellw/Straw) Urine Clarity Clear (Clear) Urine pH 6.0 (5.0-8.5) Ur Specific [place] Greater/equal 1.030 (1.002-1.035) Urine Protein Negative (Neg-Trace) mg/dL Urine Glucose (UA) Negative (Negative) mg/dL - Imaging Impressions Abdomen/Pelvis CT 05/12/18 20:18 CONCLUSION: 1. CT findings of a small bowel obstruction with a transition identified in the right lateral abdomen in the region of the terminal ileum. The distal terminal ileum is completely decompressed. 2. Right inguinal hernia measuring 5 cm in diameter again contains fat and fluid. It also appears to contain the right-sided dome or urachus of the urinary bladder. 3. Small moderate-sized hiatal hernia. Caprini VTE Risk Assessment Caprini VTE Risk Assessment: Moderate/High Risk (score >= 2) Caprini Risk Assessment Model: Point Value = 1 Point Value = 2 Point Value = 3 Point Value = 5 Age 41-60 Minor surgery BMI > 25 kg/m2 Swollen legs Varicose veins or History of unexplained or recurrent spontaneous Oral contraceptives or hormone replacement Sepsis (< 1 month) Serious lung disease, including pneumonia (< 1 month) Abnormal pulmonary function Acute myocardial infarction Congestive heart failure (< 1 month) History of inflammatory bowel disease Medical patient at bed rest Age 61-74 Arthroscopic surgery Major open surgery (> 45 min) Laparoscopic surgery (> 45 min) Malignancy Confined to bed (> 72 hours) Immobilizing plaster cast Central venous access Age >= 75 History of VTE Family history of VTE Factor V Leiden Prothrombin [id number] Lupus anticoagulant Anticardiolipin antibodies Elevated serum homocysteine Heparin-induced thrombocytopenia Other congenital or acquired thrombophilia Stroke (< 1 month) Elective arthroplasty Hip, pelvis, or leg fracture Acute spinal cord injury (< 1 month) Prophylaxis Regimen: Total Risk Factor Score Risk Level Prophylaxis Regimen 0-1 Low Early ambulation 2 Moderate Order ONE of the following: *Sequential Compression Device (SCD) *Heparin 5000 units SQ BID 3-4 Higher Order ONE of the following medications: *Heparin 5000 units SQ TID *Enoxaparin/Lovenox 40 mg SQ daily (WT < 150 kg, CrCl > 30 mL/min) *Enoxaparin/Lovenox 30 mg SQ daily (WT < 150 kg, CrCl > 10-29 mL/min) *Enoxaparin/Lovenox 30 mg SQ BID (WT < 150 kg, CrCl > 30 mL/min) AND/OR *Sequential Compression Device (SCD) 5 or more Highest Order ONE of the following medications: *Heparin 5000 units SQ TID (Preferred with Epidurals) *Enoxaparin/Lovenox 40 mg SQ daily (WT < 150 kg, CrCl > 30 mL/min) *Enoxaparin/Lovenox 30 mg SQ daily (WT < 150 kg, CrCl > 10-29 mL/min) *Enoxaparin/Lovenox 30 mg SQ BID (WT < 150 kg, CrCl > 30 mL/min) AND *Sequential Compression Device (SCD) Assessment and Plan - Plan A/P - small bowel obstruction keep NPO- continue with supportive care with IV fluid, pain control and antiemetics as needed- surgery consulted. -hypokalemia; will replace and monitor. -COPD; resume home inhalers- neb treatment as needed. -hypertension/ hypothyroidism; resume home meds when started on diet. -DVT prophylaxis ; SCD's Discussed Condition With: the patient. H&P: Quality - VTE Deep Vein Thrombosis/Pulmonary Embolism Present on Admission: No
[2018-05-13] MEDS: Sod Chloride 0.9% Inj 1,000 ML IV.CONT SCH ×2 (10:38→23:36)
[2018-05-13] MEDS: Potassium Chlor 20 mEq Premix 20 MEQ/100 ML PIGGYBACK IV.SIG SCH ×2 (10:43→12:44)
[2018-05-13] MEDS: Budesonide-Formoterol 160/4.5 MCG 6 GM Inhaler INH SCH (20:11)
--- NOTE | 2018-05-13 22:50 | MB ---
cc: Eliseo Souza MD DATE: 05/13/2018 REASON FOR CONSULTATION: Small-bowel obstruction. SUPERVISOR STAVE CUTTING: Oksana Sena MD HISTORY OF PRESENT ILLNESS: The patient is a 67-year-old female with multiple medical issues who presented to the emergency department with abdominal pain and nausea. The patient states the pain started last week. The patient had a colonoscopy and endoscopy by Dr. Sanches and following this, pain continued to increase. The patient states the pain got worse and the patient felt bloated and had failure to have bowel movement. She states the pain was generalized; it was 4/10, currently a 7/10, worse with movement, better with lying still. She has never had pain like this before. She denies any vomiting, does associate nausea. She has a history of lumbar fusion, , and a hiatal hernia with a Aaron fundoplication. The patient further denies any fevers or chills. She came to the emergency department for further evaluation including CT scan showing a transition in small bowel with small bowel obstruction. NG tube was attempted last night for decompression without success. PAST MEDICAL HISTORY: COPD, hypertension, pulmonary embolism, hypothyroidism, bilateral inguinal hernias. PAST SURGICAL HISTORY: Breast augmentation, , lumbar discectomy back surgery, hiatal hernia repair. SOCIAL HISTORY: Denies current smoking, ETOH or IVDA. ALLERGIES: NO KNOWN DRUG ALLERGIES. MEDICATIONS: See electronic medical record. FAMILY HISTORY: Denies diabetes or hypertension. REVIEW OF SYSTEMS: GENERAL: Denies fevers, chills. HEENT: Denies eye pain, ear pain. NECK: Denies swelling and pain. LUNGS: Denies cough or wheeze. HEART: Denies palpitations or chest pain. ABDOMEN: Complaining of nausea and abdominal pain. Denies vomiting. GENITOURINARY: Denies dysuria or hematuria. ENDOCRINE: Denies polyuria or polydipsia. INTEGUMENT: Denies any masses or lesions. PHYSICAL EXAMINATION: VITAL SIGNS: Temperature 98.5, pulse 90, respirations 20, blood pressure 104/63, saturation 96%. HEENT: Pupils equal, round, reactive. NECK: Supple. Trachea midline. LUNGS: Clear to auscultation, bilateral expansion. HEART: S1, S2, regular. ABDOMEN: Soft, distended. Mild tenderness to palpation. Healed surgical scars. Palpable inguinal hernias, right greater than left, reducible. EXTREMITIES: Warm and well perfused. NEUROLOGIC: 5/5 strength all extremities, AAO x 4. INTEGUMENT: No obvious masses or lesions. PSYCHIATRIC: Appropriate mood, appropriate judgment. BACK: Normal curvature next month. DIAGNOSTIC DATA: WBC 3.4, hemoglobin 10.6, hematocrit 31.7, platelets 276. Sodium 141, potassium 3, chloride 108, BUN is 7, creatinine 0.9, calcium 8.2, lipase 166. A CT reviewed by myself showing small-bowel obstruction, transition right lateral abdomen in the region of the terminal ileum, a right inguinal hernia, right greater than left, left inguinal hernia, small hiatal hernia. ASSESSMENT: Patient is a 69-year-old female who presented with a bowel obstruction. PLAN: After full clinical workup of the patient with the above-noted issues, at this point, I recommended consideration of nasogastric tube if possible. The patient does have a significantly dilated stomach and does not appear currently resolved. If unable, consider to monitor closely. IV fluids hydration, keep the patient n.p.o. We will check a small bowel follow through tomorrow for evaluation of bowel obstruction. If failure to pass contrast, then would consider transfer to [facility] for planning of surgical intervention. If contrast does pass, then we will continue to treat this conservatively. MD MARQUISE Jacobson/rosalino , 09:23 PM , 09:34 PM
[2018-05-14] MEDS: Morphine Sulfate Inj 2 MG/ML Vial IV.PUSH PRN ×6 (00:13→22:40)
[2018-05-14] MEDS: Sod Chloride 0.9% Inj 1,000 ML IV.CONT SCH (06:26)
[2018-05-14 06:43] LABS: Hematocrit 30.8 % (35.0-46.0); Hemoglobin 10.3 gm/dL (11.6-15.3); Mean Corpuscular HGB Conc 33.4 % (32.0-36.0); Mean Corpuscular Hemoglobin 31.3 pg (27.0-34.0); Mean Corpuscular Volume 93.7 fL (80.0-100.0); Mean Platelet Volume 8.3 fL (7.0-11.0); Platelet Count 284 th/mm3 (150-450); Red Blood Count 3.29 mil/mm3 (4.00-5.30); Red Cell Distribution Width 12.1 % (11.6-17.2); White Blood Count 3.4 th/mm3 (4.0-11.0)
[2018-05-14 07:08] LABS: Anion Gap 15 meq/L (5-15); Blood Urea Nitrogen 3 mg/dL (7-18); Calcium 7.2 mg/dL (8.5-10.1); Carbon Dioxide 17.3 meq/L (21.0-32.0); Chloride 109 meq/L (98-107); Glomerular Filtration Rate Greater Than 89 mL/min (>89); Glucose,Random 67 mg/dL (74-106); Sodium 141 meq/L (136-145)
[2018-05-14 07:43] LABS: Lymphocytes 27 % (9-44); Monocytes 17 % (0-8); Platelet Estimate Normal (Normal); Platelet Morphology Normal (Normal); Potassium 2.7 meq/L (3.5-5.1)
[2018-05-14 07:55] LABS: Total Protein 5.3 g/dL (6.4-8.2)
[2018-05-14] MEDS ORDERED: Diatrizoate Meglum/Diatrizoate Sod Liq 120 ML Bottle (for RAD diag) PO ONE (10:00)
[2018-05-14] MEDS: Budesonide-Formoterol 160/4.5 MCG 6 GM Inhaler INH SCH ×2 (11:00→20:44)
--- NOTE | 2018-05-14 11:54 | P.PNIM ---
Subjective Interval history: f/u; bowel obstruction in no acute distress. still with abdominal pain but it's fairly controlled. no nausea or emesis. Physical Exam Vital signs: Vital Signs 05/13/18 12:00 05/13/18 16:00 05/13/18 20:00 Temperature 99.2 F 98.6 F 99.6 F Pulse Rate 82 85 87 Respiratory Rate 20 21 18 Blood Pressure 110/62 118/71 133/75 Pulse Oximetry 95 95 96 05/14/18 00:00 05/14/18 08:00 Temperature 99.1 F 99.2 F Pulse Rate 86 86 Respiratory Rate 18 20 Blood Pressure 120/73 116/68 Pulse Oximetry 94 L 95 Intake & Output 05/13/18 05/14/18 05/14/18 18:59 06:59 18:59 Intake Total 1200 / 1200 1647 / 1647 353 / 353 Output Total 700 / 700 201 / 201 Balance 500 / 500 1647 / 1647 152 / 152 Weight 71.6 kg Intake: IV 1200 / 1200 1647 / 1647 353 / 353 NS Inj 1,000 ML @ 100 mls/hr IV 1000 / 1000 1647 / 1647 353 / 353 .CONT .Q10H [facility] Rx#:[id number] KCl 20 mEq Premix Inj 20 meq In 200 / 200 100 ml @ 50 mls/hr IV.SIG Q2H [facility] Rx#:[id number] Oral 0 / 0 0 / 0 Output: Urine 700 / 700 200 / 200 Stool 1 / 1 Other: # Voids 2 4 Date of Last Bowel Movement 05/06/18 05/06/18 05/14/18 - Constitutional no acute distress - Routine Respiratory Exam Present: CTA bilaterally - Routine Cardiovascular Exam Present: RRR - Routine Abdominal Exam Present: soft - Routine Extremities Exam Comments: no pedal edema. - Routine Neurological Exam Present: alert, oriented X3 Results - Labs CBC & Chem 7: 05/14/18 06:00 05/14/18 06:00 Laboratory Results - last 24 hr 05/14/18 05/14/18 06:00 06:00 CBC w Diff Slide review pending WBC 3.4 L RBC 3.29 L Hgb 10.3 L Hct 30.8 L MCV 93.7 MCH 31.3 MCHC 33.4 RDW 12.1 Plt Count 284 MPV 8.3 WBC Differential Manual diff final Seg Neuts % (Manual) 55 Band Neuts % (Manual) 1 Lymphocytes % (Manual) 27 Monocytes % (Manual) 17 H Abs Neuts (Manual) 1.9 Differential Comment . Platelet Estimate Normal Platelet Morphology Normal Sodium 141 Potassium 2.7 L* Chloride 109 H Carbon Dioxide 17.3 L Anion Gap 15 BUN 3 L Creatinine 0.34 L Estimated GFR Greater than 89 Random Glucose 67 L Calcium 7.2 L* Prot Corrected Calcium 8.2 L Total Protein 5.3 L Assessment and Plan - Plan A/P - small bowel obstruction keep NPO- continue with supportive care with IV fluid, pain control and antiemetics as needed- surgery consult appreciated; small bowel follow-thru pending. -hypokalemia; will replace and monitor. -COPD; resume home inhalers- neb treatment as needed. -hypertension/ hypothyroidism; resume home meds when started on diet. -DVT prophylaxis ; SCD's Discharge Planning: home when stable and cleared by general surgery.
[2018-05-14] MEDS ORDERED: Potassium Chloride Inj 20 MEQ in Sod Chloride 0.9% Inj 1,000 ML IV.CONT SCH (12:00)
[2018-05-14] MEDS: Potassium Chlor 20 mEq Premix 20 MEQ/100 ML PIGGYBACK IV.SIG SCH ×2 (12:31→14:45)
--- NOTE | 2018-05-14 13:37 | FL ---
EXAM DATE: 05/14/2018 1:31 PM EDT AGE/SEX: 67 years / Female INDICATIONS: Small bowel obstruction. Abdominal pain. CLINICAL DATA: This is the patient's initial encounter. Patient reports that signs and symptoms have been present for 2 weeks and indicates a pain score of 8/10. MEDICAL/SURGICAL HISTORY: Chronic obstructive pulmonary disease. Hypertension. Hyperparathyro idism. Bilateral inguinal hernias. Pulmonary emboli. section. Breast augmentation. Hiatal hernia repair. Lumbar discectomy. COMPARISON: [facility], CT ABDOMEN & PELVIS W CONTRAST, 05/12/2018. . FLUORO TIME: 0 IMAGE COUNT: 16 CONTRAST: FINDINGS: Preliminary film demonstrates posterior magdalena and transpedicular screw fixation at L4-S1. The inferior most left sided screw is fractured. There is diffuse marked dilatation of small bowel loops identifie d up to 5.8 cm. The stomach is grossly unremarkable. Examination of the small bowel demonstrates normal mucosal pattern involving the jejunum and ileum. There is marked dilatation. There is no evidence of mass or obstruction. No intraluminal filling def ects are identified. By 4 1/2 hours, contrast has still not reached the colon. CONCLUSION: Small bowel obstruction. Electronically signed by: Juan C Neri MD 05/14/2018 1:36 PM EDT
--- NOTE | 2018-05-14 15:27 | P.PNGS ---
Subjective Patient reports: still having pain (severe distesion, small flatus no bm, pain) Physical Exam Vital signs: Vital Signs 05/13/18 16:00 05/13/18 20:00 05/14/18 00:00 Temperature 98.6 F 99.6 F 99.1 F Pulse Rate 85 87 86 Respiratory Rate 21 18 18 Blood Pressure 118/71 133/75 120/73 Pulse Oximetry 95 96 94 L 05/14/18 08:00 05/14/18 12:00 Temperature 99.2 F 97.6 F Pulse Rate 86 94 H Respiratory Rate 20 20 Blood Pressure 116/68 143/92 H Pulse Oximetry 95 96 Intake & Output 05/13/18 05/14/18 05/14/18 18:59 06:59 18:59 Intake Total 1200 / 1200 1647 / 1647 453 / 453 Output Total 700 / 700 401 / 401 Balance 500 / 500 1647 / 1647 52 / 52 Weight 71.6 kg Intake: IV 1200 / 1200 1647 / 1647 453 / 453 NS Inj 1,000 ML @ 100 mls/hr IV 1000 / 1000 1647 / 1647 353 / 353 .CONT .Q10H [facility] Rx#:[id number] KCl 20 mEq Premix Inj 20 meq In 200 / 200 100 / 100 100 ml @ 50 mls/hr IV.SIG Q2H [facility] Rx#:[id number] Oral 0 / 0 0 / 0 Output: Urine 700 / 700 400 / 400 Stool 1 / Other: # Voids 2 4 Date of Last Bowel Movement 05/06/18 05/06/18 05/14/18 - Routine Respiratory Exam Present: CTA bilaterally - Routine Abdominal Exam Present: distended (diffuse ttp) Results - Labs 05/14/18 06:00 05/14/18 06:00 Laboratory Results - last 24 hr 05/14/18 05/14/18 06:00 06:00 CBC w Diff Slide review pending WBC 3.4 L RBC 3.29 L Hgb 10.3 L Hct 30.8 L MCV 93.7 MCH 31.3 MCHC 33.4 RDW 12.1 Plt Count 284 MPV 8.3 WBC Differential Manual diff final Seg Neuts % (Manual) 55 Band Neuts % (Manual) 1 Lymphocytes % (Manual) 27 Monocytes % (Manual) 17 H Abs Neuts (Manual) 1.9 Differential Comment . Platelet Estimate Normal Platelet Morphology Normal Sodium 141 Potassium 2.7 L* Chloride 109 H Carbon Dioxide 17.3 L Anion Gap 15 BUN 3 L Creatinine 0.34 L Estimated GFR Greater than 89 Random Glucose 67 L Calcium 7.2 L* Prot Corrected Calcium 8.2 L Total Protein 5.3 L - Imaging Imaging: ITS Impressions Abdomen/Pelvis CT 05/12/18 20:18 CONCLUSION: 1. CT findings of a small bowel obstruction with a transition identified in the right lateral abdomen in the region of the terminal ileum. The distal terminal ileum is completely decompressed. 2. Right inguinal hernia measuring 5 cm in diameter again contains fat and fluid. It also appears to contain the right-sided dome or urachus of the urinary bladder. 3. Small moderate-sized hiatal hernia. Small Bowel X-Ray 05/14/18 00:00 CONCLUSION: Small bowel obstruction. Assessment and Plan - Plan sbo plan SBFT with obstruction no passage of contrast transfer [facility] will plan for dx lap hector tomorrow recommend ng if vomits
[2018-05-15] MEDS ORDERED: Chlorhexidine Gluconate 2% 1 Pack (2 Cloths) TOPICAL ONE (04:30)
[2018-05-15] MEDS: Morphine Sulfate Inj 2 MG/ML Vial IV.PUSH PRN ×3 (06:20→22:39)
[2018-05-15 06:44] LABS: Anion Gap 14 meq/L (5-15); Blood Urea Nitrogen 3 mg/dL (7-18); Calcium 7.7 mg/dL (8.5-10.1); Carbon Dioxide 13.6 meq/L (21.0-32.0); Chloride 112 meq/L (98-107); Glomerular Filtration Rate Greater Than 89 mL/min (>89); Glucose,Random 89 mg/dL (74-106); Sodium 140 meq/L (136-145)
[2018-05-15] MEDS: Budesonide-Formoterol 160/4.5 MCG 6 GM Inhaler INH SCH ×2 (09:00→20:00)
[2018-05-15 11:08] LABS: Alanine Aminotransferase 17 U/L (10-53); Albumin 2.9 g/dL (3.4-5.0); Anion Gap 13 meq/L (5-15); Aspartate Aminotransferase 13 U/L (15-37); Blood Urea Nitrogen 3 mg/dL (7-18); Calcium 7.6 mg/dL (8.5-10.1); Carbon Dioxide 15.4 meq/L (21.0-32.0); Chloride 114 meq/L (98-107); Glomerular Filtration Rate Greater Than 89 mL/min (>89); Glucose,Random 89 mg/dL (74-106); Potassium 3.3 meq/L (3.5-5.1); Sodium 142 meq/L (136-145)
[2018-05-15 11:11] LABS: Alkaline Phosphatase 78 U/L (45-117); Total Protein 6.5 g/dL (6.4-8.2)
[2018-05-15] MEDS ORDERED: Bupivacaine/Epinephrine Inj 0.25% 50 ML Vial ONE (11:11)
[2018-05-15 11:18] LABS: Magnesium 1.8 mg/dL (1.5-2.5)
[2018-05-15] MEDS ORDERED: ceFAZolin 2 GM Premix Inj 2 GM/50 ML PIGGYBACK IV.SIG ONE (11:23)
--- NOTE | 2018-05-15 11:23 | P.PNIM ---
Subjective Interval history: Chief Complaint: constipation History of Present Illness: patient is a 67 y/o female with history of hypertension, COPD , hernia repair, who presented to ER with constipation.she says that she hasn't had any bowel movement since last week and she couldn't pass any gas. later she started to have generalized abdominal discomfort. she had some nausea but with no emesis. she denies any fever or chills. 05-14 f/u; bowel obstruction in no acute distress. still with abdominal pain but it's fairly controlled. no nausea or emesis. 05-15 TRANSFERRED TO [facility] FOR SURGERY SCHEDULED TO GO FOR SURGERY TODAY SEEN PRIOR TO MOVEMENT TO THE OR SOME ABDOMINAL PAIN HAD BLACK/DARK DIARRHEA STOOLS DW RN AND PT AND CM Physical Exam Vital signs: Vital Signs 05/14/18 12:00 05/14/18 16:00 05/14/18 18:40 Temperature 97.6 F 98.2 F 98.3 F Pulse Rate 94 H 97 H 100 H Respiratory Rate 20 20 20 Blood Pressure 143/92 H 115/68 136/75 Pulse Oximetry 96 96 96 05/14/18 20:00 05/15/18 01:08 05/15/18 08:00 Temperature 99.2 F 98.9 F 98.3 F Pulse Rate 98 H 107 H 98 H Respiratory Rate 21 16 18 Blood Pressure 136/85 130/77 118/74 Pulse Oximetry 96 95 95 Intake & Output 05/14/18 05/15/18 05/15/18 18:59 06:59 18:59 Intake Total 1563 / 1563 1500 / 1500 Output Total 401 / 401 Balance 1162 / 1162 1500 / 1500 Weight 71.6 kg Intake: IV 1563 / 1563 1000 / 1000 NS + KCl 20 mEq Inj 1,000 ML @ 1000 / 1000 100 mls/hr IV.CONT .Q10H [facility] Rx #:[id number] KCl Inj 20 MEQ In NS Inj 1,000 1010 / 1010 ML @ 100 mls/hr IV.CONT .Q10H6M [facility] Rx#:[id number] NS Inj 1,000 ML @ 100 mls/hr IV 353 / 353 .CONT .Q10H [facility] Rx#:[id number] KCl 20 mEq Premix Inj 20 meq In 200 / 200 100 ml @ 50 mls/hr IV.SIG Q2H [facility] Rx#:[id number] Oral 0 / 0 500 / 500 Output: Urine 400 / 400 Stool / Other: # Voids 2 Date of Last Bowel Movement 05/14/18 # Bowel Movements 1 Narrative: GENERAL: Awake alert and oriented x3 talkative and cooperative in mild to moderate distress SKIN: Warm and dry. HEAD: Atraumatic. Normocephalic. EYES: Pupils equal and round. No scleral icterus. No injection or drainage. ENT: No nasal bleeding or discharge. Mucous membranes pink and moist. Tongue is midline NECK: Trachea midline. No JVD. Supple CARDIOVASCULAR: Regular rate and rhythm. S1-S2 no S3 or S4 RESPIRATORY: No accessory muscle use. Clear to auscultation. Breath sounds equal bilaterally. GASTROINTESTINAL: Abdomen soft, some tenderness and some distention. hepatic and splenic margins not palpable. MUSCULOSKELETAL: Extremities without clubbing, cyanosis, or edema. No obvious deformities. NEUROLOGICAL: Awake and alert. No obvious cranial nerve deficits. Motor grossly within normal limits. Five out of 5 muscle strength in the arms and legs. Normal speech. PSYCHIATRIC: Appropriate mood and affect; insight and judgment normal. Results - Labs CBC & Chem 7: 05/14/18 06:00 05/15/18 10:24 Laboratory Results - last 24 hr 05/15/18 05/15/18 05/15/18 05:29 10:24 10:24 Sodium 140 Potassium Chloride 112 H Carbon Dioxide 13.6 L Anion Gap 14 BUN 3 L Creatinine 0.42 L Estimated GFR Greater than 89 Random Glucose 89 Calcium 7.7 L Phosphorus 1.0 L Magnesium 1.8 Total Bilirubin AST ALT Alkaline Phosphatase Total Protein Albumin Free T4 1.01 05/15/18 10:24 Sodium 142 Potassium 3.3 L Chloride 114 H Carbon Dioxide 15.4 L Anion Gap 13 BUN 3 L Creatinine 0.43 L Estimated GFR Greater than 89 Random Glucose 89 Calcium 7.6 L Phosphorus Magnesium Total Bilirubin 0.6 AST 13 L ALT 17 Alkaline Phosphatase 78 Total Protein 6.5 D Albumin 2.9 L Free T4 - Imaging Impressions Small Bowel X-Ray 05/14/18 00:00 CONCLUSION: Small bowel obstruction. Assessment and Plan - Plan - small bowel obstruction keep NPO- continue with supportive care with IV fluid, pain control and antiemetics as needed- surgery consult appreciated; small bowel follow-thru pending. To go for surgery today May 15 -hypokalemia; will replace and monitor. -COPD; resume home inhalers- neb treatment as needed. -hypertension/ hypothyroidism; resume home meds when started on diet. -DVT prophylaxis ; SCD's Code Status: Full code Discussed Condition With: RN and patient and case management Discharge Planning: Pending improvement and clearance by surgery
[2018-05-15 11:27] LABS: Thyroid Stimulating Hormone 2.52 uIU/mL (0.358-3.740)
[2018-05-15] MEDS ORDERED: fentaNYL Citrate Inj 100 MCG/2 ML Ampul ONE ×2 (11:38→15:02)
[2018-05-15 11:50] LABS: Baso % (Auto) 0.3 % (0.0-2.0); Eos % (Auto) 0.1 % (0.0-4.0); Hematocrit 36.5 % (35.0-46.0); Hemoglobin 12.6 gm/dL (11.6-15.3); Lymph # (Auto) 0.7 th/mm3 (1.0-4.8); Lymph % (Auto) 11.8 % (9.0-44.0); Mean Corpuscular HGB Conc 34.5 % (32.0-36.0); Mean Corpuscular Hemoglobin 32.5 pg (27.0-34.0); Mean Platelet Volume 8.6 fL (7.0-11.0); Mono # (Auto) 0.8 th/mm3 (0.0-0.9); Mono % (Auto) 13.6 % (0.0-8.0); Neut # (Auto) 4.4 th/mm3 (1.8-7.7); Neut % (Auto) 74.2 % (16.0-70.0); Platelet Count 315 th/mm3 (150-450); Red Blood Count 3.88 mil/mm3 (4.00-5.30); Red Cell Distribution Width 13.1 % (11.6-17.2); White Blood Count 5.9 th/mm3 (4.0-11.0)
[2018-05-15] MEDS ORDERED: Lidocaine PF 1% Inj 5 ML Syringe OTHER ONE (12:04)
[2018-05-15] MEDS ORDERED: Succinylcholine Inj 100 MG/5 ML Syringe IV.PUSH ONE (12:04)
[2018-05-15] MEDS ORDERED: Neostigmine Inj 5 MG/5 ML Syringe IV.PUSH ONE (12:04)
[2018-05-15] MEDS ORDERED: Glycopyrrolate Inj 1 MG/5 ML Syringe IV.PUSH ONE (12:04)
[2018-05-15 13:47] LABS: Hemoglobin A1c 5.6 % (4.3-6.0)
--- NOTE | 2018-05-15 14:45 | P.OP ---
- Preoperative Diagnosis (1) Small bowel obstruction (2) Incarcerated right inguinal hernia - Postoperative Diagnosis (1) Incarcerated right inguinal hernia Date of procedure: 05/15/18 Procedure: dx lap, lap reduction of inguinal hernia, right inguinal hernia repair with mesh Anesthesia: GETA Surgeon: Eliseo Souza MD Estimated blood loss (mL): 20 Pathology: none sent Operation and Findings: dusky bowel pinked up during procedure bowel mesentary hematoma large right inguinal hernia
[2018-05-15] MEDS: ceFAZolin 2 GM Premix Inj 2 GM/100 ML BAG IV.SIG SCH (20:01)
[2018-05-15] MEDS: Phenol 1.4% 180 ML Spray Bottle OROPHARYNG PRN (21:42)
--- NOTE | 2018-05-16 | ECG ---
Date Performed: 05/15/2018 Time Performed: 07:29:52 PTAGE: 67 years EKG: Sinus rhythm NORMAL ECG NO PREVIOUS TRACING DOCTOR: Caesar Medrano Interpretating Date/Time 05/15/2018 23:59:32
[2018-05-16] MEDS: Phenol 1.4% 180 ML Spray Bottle OROPHARYNG PRN (02:30)
[2018-05-16] MEDS: Morphine Sulfate Inj 2 MG/ML Vial IV.PUSH PRN ×6 (02:40→23:11)
--- NOTE | 2018-05-16 03:04 | MP ---
cc: Elsieo Souza MD DATE OF OPERATION: 05/15/2018 PREOPERATIVE DIAGNOSIS: Small bowel obstruction. POSTOPERATIVE DIAGNOSIS: Small-bowel obstruction from incarceration of right inguinal hernia. SURGEON: Eliseo Souza MD PROCEDURE PERFORMED: 1. Diagnostic laparoscopy. 2. Laparoscopic reduction of inguinal hernia. 3. Open right inguinal hernia repair with mesh, 3 x 6 atrium mesh. PIANO REGULATOR INSPECTOR: Trenton De Leon MD. ANESTHESIA: GETA. IV FLUIDS: See anesthesia sheet. ESTIMATED BLOOD LOSS: 10 mL. DRAINS: A 10-Romanian flat Ranjit drain. WOUND CLASSIFICATION: Clean. SPECIMENS: None. FINDINGS: Large right inguinal hernia, indurated ischemic mesentery. Bowel appeared viable, but somewhat hemorrhagic to the small bowel causing bowel obstruction with dilated proximal loops and decompressed distal loops. INDICATIONS FOR PROCEDURE: The patient is a 67-year-old female who presented with acute onset of abdominal pain and abdominal distention. The patient with a history of Aaron fundoplication and unable to burp or vomit. She had CT scan workup showing a significantly dilated bowel loops with decompressed distal bowel loops. Right inguinal hernia that did not contain any small bowel on CT scan and a small bowel follow through showing non-passes of contrast at 4-1/2 hours. Decision was made for diagnostic laparoscopy, laparoscopic lysis of adhesion with possible bowel resection. DETAILS OF PROCEDURE: The patient was taken to the operating suite, placed in supine position. She was prepped and draped in the usual sterile fashion after induction of general endotracheal anesthesia. Brief timeout done stating correct patient, procedure, surgical site, and all were in agreement with this. Attention first directed to the left upper quadrant where local anesthetic was injected. A small stab jenna incision was made with a 15 blade. A Visiport 5 mm Optiview port was done to enter the abdomen safely. Abdomen insufflated to 15 mm pneumoperitoneum. On cursory inspection, no evidence of injury. The abdomen was noted to be markedly dilated. There was noted to be serosanguineous fluid in the dependent pelvis. Further, it was noted a right inguinal hernia with bowel mesentery contained within creating bowel obstruction. Two other ports placed in the left lower quadrant and left mid quadrant. The mesentery was reduced from the hernia. Hernia was somewhat large containing sac. The bowel noted to be viable, but somewhat hemorrhagic and noted to be patent. The mesentery was somewhat indurated and also somewhat hemorrhagic, but also noted to be relatively viable. Decision at this point was to not resect the bowel due to it looking viable and pink and placing a small drain at the port incision. 2-0 nylon used to secure this, which was placed in the dependent pelvis and near questionable bowel. Then, decision was made to repair the right inguinal hernia. This was done in an open technique. The patient had a previous tummy tuck scar. Incision was done along the tummy tuck scar, 5 cm. The tummy tuck created adhesion and distortion of anatomy; however, #15 blade used followed by Bovie cautery to incise along the scar of the tummy tuck incision. This was done down to the external oblique fascia. Stab jenna was made with a 15 blade in the direction of the external oblique fibers. Metzenbaum scissors were used to run towards the external ring and then proximal. Hemostats placed on the external oblique fascia. Ilioinguinal nerve was cut and removed. Large deep hernia defect noted. The inguinal floor was somewhat thin. A 3 x 6 atrium mesh was obtained. The pubic tubercle was palpated. 0 Ethibonds were used to secure the atrial mesh to the pubic tubercle along the shelving edge and conjoined tendon. The mesh noticed to sit flat and was well secured. The external oblique was then repaired with a 2-0 Vicryl. Local anesthetic injected. The external ring was recreated. Hemostasis was obtained. Brandie's fascia was closed with 2-0 Vicryl. The subcutaneous 3-0 Vicryl suture was done followed by a 4-0 Monocryl subcuticular suture. The hernia defect noted to be intact. Abdomen then desufflated. Ports were removed. The ports were closed with 4-0 Monocryl. Sterile dressing was placed. The patient tolerated procedure well. No intraoperative complications. All lap and instrument counts were correct at the end of the procedure. The patient was extubated and taken to the PACU. MD MARQUISE Jacobson/venus , 11:20 PM , 11:33 PM
[2018-05-16] MEDS: ceFAZolin 2 GM Premix Inj 2 GM/100 ML BAG IV.SIG SCH ×2 (03:50→15:01)
[2018-05-16 05:21] LABS: Baso % (Auto) 0.2 % (0.0-2.0); Hematocrit 33.3 % (35.0-46.0); Hemoglobin 11.6 gm/dL (11.6-15.3); Lymph # (Auto) 0.5 th/mm3 (1.0-4.8); Lymph % (Auto) 8.7 % (9.0-44.0); Mean Corpuscular HGB Conc 34.8 % (32.0-36.0); Mean Corpuscular Hemoglobin 32.5 pg (27.0-34.0); Mean Corpuscular Volume 93.5 fL (80.0-100.0); Mean Platelet Volume 8.6 fL (7.0-11.0); Mono # (Auto) 0.7 th/mm3 (0.0-0.9); Mono % (Auto) 11.6 % (0.0-8.0); Neut % (Auto) 79.5 % (16.0-70.0); Platelet Count 326 th/mm3 (150-450); Red Blood Count 3.56 mil/mm3 (4.00-5.30); Red Cell Distribution Width 13.1 % (11.6-17.2); White Blood Count 6.3 th/mm3 (4.0-11.0)
[2018-05-16 05:53] LABS: Alanine Aminotransferase 13 U/L (10-53); Albumin 2.5 g/dL (3.4-5.0); Alkaline Phosphatase 65 U/L (45-117); Anion Gap 13 meq/L (5-15); Aspartate Aminotransferase 13 U/L (15-37); Blood Urea Nitrogen 1 mg/dL (7-18); Calcium 7.3 mg/dL (8.5-10.1); Carbon Dioxide 16.6 meq/L (21.0-32.0); Chloride 113 meq/L (98-107); Free T4 (Free Thyroxine) 1.06 ng/dL (0.76-1.46); Glomerular Filtration Rate Greater Than 89 mL/min (>89); Glucose,Random 89 mg/dL (74-106); Magnesium 1.7 mg/dL (1.5-2.5); Phosphorus 0.6 mg/dL (2.5-4.9); Sodium 143 meq/L (136-145); Total Protein 5.7 g/dL (6.4-8.2)
[2018-05-16] MEDS: Potassium Chlor 10 mEq Premix 10 MEQ/100 ML PIGGYBACK IV.SIG SCH ×5 (09:48→20:30)
[2018-05-16] MEDS: Budesonide-Formoterol 160/4.5 MCG 6 GM Inhaler INH SCH ×2 (09:49→20:53)
[2018-05-16] MEDS ORDERED: Magnesium Sulfate Inj 2 GM in Sodium Chlor 0.9% Inj 96 ML IV.SIG ONE ×2 (11:00→21:00)
[2018-05-16 13:31] LABS: Hemoglobin A1c 5.5 % (4.3-6.0)
--- NOTE | 2018-05-16 13:32 | P.PNGS ---
Subjective Patient reports: feels better, still having pain Physical Exam Vital signs: Vital Signs 05/15/18 14:52 05/15/18 14:55 05/15/18 15:04 Temperature 98.1 F Pulse Rate 98 H 89 Respiratory Rate 19 17 Blood Pressure 117/67 122/68 Pulse Oximetry 94 L 94 L 98 05/15/18 15:15 05/15/18 15:30 05/15/18 15:45 Temperature 97.6 F Pulse Rate 79 80 81 Respiratory Rate 16 16 16 Blood Pressure 117/69 120/69 121/72 Pulse Oximetry 95 96 98 05/15/18 15:55 05/15/18 16:46 05/15/18 18:18 Temperature 97.8 F Pulse Rate 81 78 Respiratory Rate 16 17 Blood Pressure 129/75 Pulse Oximetry 97 96 96 05/15/18 20:00 05/16/18 00:00 05/16/18 02:28 Temperature 97.1 F L 98.1 F Pulse Rate 99 H 98 H Respiratory Rate 22 22 18 Blood Pressure 127/77 128/70 Pulse Oximetry 96 94 L 05/16/18 02:42 05/16/18 04:00 05/16/18 06:32 Temperature 97.6 F Pulse Rate 107 H Respiratory Rate 18 22 18 Blood Pressure 133/70 Pulse Oximetry 95 05/16/18 08:00 05/16/18 12:00 Temperature 98.6 F 98.2 F Pulse Rate 101 H 104 H Respiratory Rate 17 17 Blood Pressure 102/63 122/72 Pulse Oximetry 93 L 96 Intake & Output 05/15/18 05/16/18 05/16/18 18:59 06:59 18:59 Intake Total 4150 / 4150 400 / 400 1100 / 1100 Output Total 400 / 400 1750 / 1750 170 / 170 Balance 3750 / 3750 -1350 / -1350 930 / 930 Weight 78.3 kg Intake: IV 2150 / 2150 400 / 400 1100 / 1100 LR 1000 mL Inj 1,000 ML @ 30 1000 / 1000 mls/hr IV.CONT .Q24H [facility] Rx#: [id number] NS + KCl 20 mEq Inj 1,000 ML @ 1000 / 1000 1000 / 1000 100 mls/hr IV.CONT .Q10H [facility] Rx #:[id number] KCl 10 mEq Premix Inj 10 meq In 100 / 100 100 ml @ 100 mls/hr IV.SIG Q1H [facility] Rx#:[id number] Ancef 2 GM Premix Inj 2 gm In 200 / 200 100 ml @ 200 mls/hr IV.SIG Q8H [facility] Rx#:[id number] Ancef 2 GM Premix Inj 2 gm In 50 / 50 50 ml @ 0 mls/hr IV.SIG .STK[facility] Rx#:[id number] Flagyl 500 MG Inj 100 ML @ 200 100 / 100 200 / 200 mls/hr IV.SIG Q8H [facility] Rx#: [id number] Anesthesia Amount 1999 Output: Urine 1750 / 1750 Estimated Blood Loss Urine Amount (Catheter) 300 / 300 straight cath 16fr 300 / 300 Wound Drainage 80 / 80 170 / 170 Left Lower Abdomen 80 / 80 170 / 170 Other: # Voids 1 Date of Last Bowel Movement 05/08/18 # Bowel Movements 0 - Constitutional no acute distress - Routine Abdominal Exam Present: soft, tenderness. Absent: normoactive bowel sounds, distended, rebound , guarding - Urinary Catheter Management straight cath 16fr Cath placed during this visit: no Results - Labs 05/16/18 04:14 05/16/18 04:14 Laboratory Results - last 24 hr 05/15/18 05/16/18 05/16/18 11:07 04:14 04:14 WBC 6.3 RBC 3.56 L Hgb 11.6 Hct 33.3 L MCV 93.5 MCH 32.5 MCHC 34.8 RDW 13.1 Plt Count 326 MPV 8.6 Neut % (Auto) 79.5 H Lymph % (Auto) 8.7 L [place] % (Auto) 11.6 H Eos % (Auto) 0.0 Baso % (Auto) 0.2 Neut # (Auto) 5.0 Lymph # (Auto) 0.5 L [place] # (Auto) 0.7 Eos # (Auto) 0.0 Baso # (Auto) 0.0 WBC Differential . Differential Comment Auto diff final Sodium 143 Potassium 3.0 L Chloride 113 H Carbon Dioxide 16.6 L Anion Gap 13 BUN 1 L Creatinine 0.56 Estimated GFR Greater than 89 Random Glucose 89 Hemoglobin A1c 5.6 Calcium 7.3 L* Prot Corrected Calcium 8.1 L Phosphorus 0.6 L Magnesium 1.7 Total Bilirubin 0.4 AST 13 L ALT 13 Alkaline Phosphatase 65 Total Protein 5.7 L D Albumin 2.5 L TSH 1.390 Free T4 1.06 - Imaging Imaging: ITS Impressions Abdomen/Pelvis CT 05/12/18 20:18 CONCLUSION: 1. CT findings of a small bowel obstruction with a transition identified in the right lateral abdomen in the region of the terminal ileum. The distal terminal ileum is completely decompressed. 2. Right inguinal hernia measuring 5 cm in diameter again contains fat and fluid. It also appears to contain the right-sided dome or urachus of the urinary bladder. 3. Small moderate-sized hiatal hernia. Small Bowel X-Ray 05/14/18 00:00 CONCLUSION: Small bowel obstruction. Assessment and Plan - Plan 65yo female s/p right inguinal hernia repair for SBO, stable. NG tube minimal output, patient hungry pain controlled inc c/d/i will DC NG and advance to clears
--- NOTE | 2018-05-16 13:36 | P.PNIM ---
Subjective Interval history: Chief Complaint: constipation History of Present Illness: patient is a 67 y/o female with history of hypertension, COPD , hernia repair, who presented to ER with constipation.she says that she hasn't had any bowel movement since last week and she couldn't pass any gas. later she started to have generalized abdominal discomfort. she had some nausea but with no emesis. she denies any fever or chills. 05-14 f/u; bowel obstruction in no acute distress. still with abdominal pain but it's fairly controlled. no nausea or emesis. 05-15 TRANSFERRED TO [facility] FOR SURGERY SCHEDULED TO GO FOR SURGERY TODAY SEEN PRIOR TO MOVEMENT TO THE OR SOME ABDOMINAL PAIN HAD BLACK/DARK DIARRHEA STOOLS DW RN AND PT AND CM WANTS SEROQUEL RESTARTED AND ATIVAN RESTARTED Physical Exam Vital signs: Vital Signs 05/15/18 14:52 05/15/18 14:55 05/15/18 15:04 Temperature 98.1 F Pulse Rate 98 H 89 Respiratory Rate 19 17 Blood Pressure 117/67 122/68 Pulse Oximetry 94 L 94 L 98 05/15/18 15:15 05/15/18 15:30 05/15/18 15:45 Temperature 97.6 F Pulse Rate 79 80 81 Respiratory Rate 16 16 16 Blood Pressure 117/69 120/69 121/72 Pulse Oximetry 95 96 98 05/15/18 15:55 05/15/18 16:46 05/15/18 18:18 Temperature 97.8 F Pulse Rate 81 78 Respiratory Rate 16 17 Blood Pressure 129/75 Pulse Oximetry 97 96 96 05/15/18 20:00 05/16/18 00:00 05/16/18 02:28 Temperature 97.1 F L 98.1 F Pulse Rate 99 H 98 H Respiratory Rate 22 22 18 Blood Pressure 127/77 128/70 Pulse Oximetry 96 94 L 05/16/18 02:42 05/16/18 04:00 05/16/18 06:32 Temperature 97.6 F Pulse Rate 107 H Respiratory Rate 18 22 18 Blood Pressure 133/70 Pulse Oximetry 95 05/16/18 08:00 05/16/18 12:00 Temperature 98.6 F 98.2 F Pulse Rate 101 H 104 H Respiratory Rate 17 17 Blood Pressure 102/63 122/72 Pulse Oximetry 93 L 96 Intake & Output 05/15/18 05/16/18 05/16/18 18:59 06:59 18:59 Intake Total 4150 / 4150 400 / 400 1100 / 1100 Output Total 400 / 400 1750 / 1750 170 / 170 Balance 3750 / 3750 -1350 / -1350 930 / 930 Weight 78.3 kg Intake: IV 2150 / 2150 400 / 400 1100 / 1100 LR 1000 mL Inj 1,000 ML @ 30 1000 / 1000 mls/hr IV.CONT .Q24H ONE Rx#: [id number] NS + KCl 20 mEq Inj 1,000 ML @ 1000 / 1000 1000 / 1000 100 mls/hr IV.CONT .Q10H [facility] Rx #:[id number] KCl 10 mEq Premix Inj 10 meq In 100 / 100 100 ml @ 100 mls/hr IV.SIG Q1H [facility] Rx#:[id number] Ancef 2 GM Premix Inj 2 gm In 200 / 200 100 ml @ 200 mls/hr IV.SIG Q8H [facility] Rx#:[id number] Ancef 2 GM Premix Inj 2 gm In 50 / 50 50 ml @ 0 mls/hr IV.SIG .STK- MED ONE Rx#:[id number] Flagyl 500 MG Inj 100 ML @ 200 100 / 100 200 / 200 mls/hr IV.SIG Q8H [facility] Rx#: [id number] Anesthesia Amount 1999 Output: Urine 1750 / 1750 Estimated Blood Loss Urine Amount (Catheter) 300 / 300 straight cath 16fr 300 / 300 Wound Drainage 80 / 80 170 / 170 Left Lower Abdomen 80 / 80 170 / 170 Other: # Voids 1 Date of Last Bowel Movement 05/08/18 # Bowel Movements 0 Narrative: GENERAL: Awake alert and oriented x3 talkative and cooperative in mild to moderate distress SKIN: Warm and dry. HEAD: Atraumatic. Normocephalic. EYES: Pupils equal and round. No scleral icterus. No injection or drainage. NGT TO LIS ENT: No nasal bleeding or discharge. Mucous membranes pink and moist. Tongue is midline NECK: Trachea midline. No JVD. Supple CARDIOVASCULAR: Regular rate and rhythm. S1-S2 no S3 or S4 RESPIRATORY: No accessory muscle use. Clear to auscultation. Breath sounds equal bilaterally. GASTROINTESTINAL: Abdomen soft, some tenderness and some distention. hepatic and splenic margins not palpable. HYPOACTIVE BOWEL SOUNDS--DRAIN IN PLACE MUSCULOSKELETAL: Extremities without clubbing, cyanosis, or edema. No obvious deformities. NEUROLOGICAL: Awake and alert. No obvious cranial nerve deficits. Motor grossly within normal limits. Five out of 5 muscle strength in the arms and legs. Normal speech. PSYCHIATRIC: Appropriate mood and affect; insight and judgment normal. - Urinary Catheter Management straight cath 16fr Cath placed during this visit: no Results - Labs CBC & Chem 7: 05/16/18 04:14 05/16/18 04:14 Laboratory Results - last 24 hr 05/15/18 05/16/18 05/16/18 11:07 04:14 04:14 WBC 6.3 RBC 3.56 L Hgb 11.6 Hct 33.3 L MCV 93.5 MCH 32.5 MCHC 34.8 RDW 13.1 Plt Count 326 MPV 8.6 Neut % (Auto) 79.5 H Lymph % (Auto) 8.7 L Alfalfa % (Auto) 11.6 H Eos % (Auto) 0.0 Baso % (Auto) 0.2 Neut # (Auto) 5.0 Lymph # (Auto) 0.5 L Alfalfa # (Auto) 0.7 Eos # (Auto) 0.0 Baso # (Auto) 0.0 WBC Differential . Differential Comment Auto diff final Sodium 143 Potassium 3.0 L Chloride 113 H Carbon Dioxide 16.6 L Anion Gap 13 BUN 1 L Creatinine 0.56 Estimated GFR Greater than 89 Random Glucose 89 Hemoglobin A1c 5.6 Calcium 7.3 L* Prot Corrected Calcium 8.1 L Phosphorus 0.6 L Magnesium 1.7 Total Bilirubin 0.4 AST 13 L ALT 13 Alkaline Phosphatase 65 Total Protein 5.7 L D Albumin 2.5 L TSH 1.390 Free T4 1.06 - Imaging ITS Impressions Abdomen/Pelvis CT 05/12/18 20:18 CONCLUSION: 1. CT findings of a small bowel obstruction with a transition identified in the right lateral abdomen in the region of the terminal ileum. The distal terminal ileum is completely decompressed. 2. Right inguinal hernia measuring 5 cm in diameter again contains fat and fluid. It also appears to contain the right-sided dome or urachus of the urinary bladder. 3. Small moderate-sized hiatal hernia. Small Bowel X-Ray 05/14/18 00:00 CONCLUSION: Small bowel obstruction. - Procedures 05/15/2018 PREOPERATIVE DIAGNOSIS: Small bowel obstruction. POSTOPERATIVE DIAGNOSIS: Small-bowel obstruction from incarceration of right inguinal hernia. SURGEON: Eliseo Souza MD PROCEDURE PERFORMED: 1. Diagnostic laparoscopy. 2. Laparoscopic reduction of inguinal hernia. 3. Open right inguinal hernia repair with mesh, 3 x 6 atrium mesh. TIPPLE WORKER: Trenton De Leon MD. ANESTHESIA: GETA. IV FLUIDS: See anesthesia sheet. ESTIMATED BLOOD LOSS: 10 mL. DRAINS: A 10-Yakut flat Ranjit drain. WOUND CLASSIFICATION: Clean. SPECIMENS: None. FINDINGS: Large right inguinal hernia, indurated ischemic mesentery. Bowel appeared viable, but somewhat hemorrhagic to the small bowel causing bowel obstruction with dilated proximal loops and decompressed distal loops. INDICATIONS FOR PROCEDURE: The patient is a 67-year-old female who presented with acute onset of abdominal pain and abdominal distention. The patient with a history of Aaron fundoplication and unable to burp or vomit. She had CT scan workup showing a significantly dilated bowel loops with decompressed distal bowel loops. Right inguinal hernia that did not contain any small bowel on CT scan and a small bowel follow through showing non-passes of contrast at 4-1/2 hours. Decision was made for diagnostic laparoscopy, laparoscopic lysis of adhesion with possible bowel resection. DETAILS OF PROCEDURE: The patient was taken to the operating suite, placed in supine position. She was prepped and draped in the usual sterile fashion after induction of general endotracheal anesthesia. Brief timeout done stating correct patient, procedure, surgical site, and all were in agreement with this. Attention first directed to the left upper quadrant where local anesthetic was injected. A small stab jenna incision was made with a 15 blade. A Visiport 5 mm Optiview port was done to enter the abdomen safely. Abdomen insufflated to 15 mm pneumoperitoneum. On cursory inspection, no evidence of injury. The abdomen was noted to be markedly dilated. There was noted to be serosanguineous fluid in the dependent pelvis. Further, it was noted a right inguinal hernia with bowel mesentery contained within creating bowel obstruction. Two other ports placed in the left lower quadrant and left mid quadrant. The mesentery was reduced from the hernia. Hernia was somewhat large containing sac. The bowel noted to be viable, but somewhat hemorrhagic and noted to be patent. The mesentery was somewhat indurated and also somewhat hemorrhagic, but also noted to be relatively viable. Decision at this point was to not resect the bowel due to it looking viable and pink and placing a small drain at the port incision. 2-0 nylon used to secure this, which was placed in the dependent pelvis and near questionable bowel. Then, decision was made to repair the right inguinal hernia. This was done in an open technique. The patient had a previous tummy tuck scar. Incision was done along the tummy tuck scar, 5 cm. The tummy tuck created adhesion and distortion of anatomy; however, #15 blade used followed by Bovie cautery to incise along the scar of the tummy tuck incision. This was done down to the external oblique fascia. Stab jenna was made with a 15 blade in the direction of the external oblique fibers. Metzenbaum scissors were used to run towards the external ring and then proximal. Hemostats placed on the external oblique fascia. Ilioinguinal nerve was cut and removed. Large deep hernia defect noted. The inguinal floor was somewhat thin. A 3 x 6 atrium mesh was obtained. The pubic tubercle was palpated. 0 Ethibonds were used to secure the atrial mesh to the pubic tubercle along the shelving edge and conjoined tendon. The mesh noticed to sit flat and was well secured. The external oblique was then repaired with a 2-0 Vicryl. Local anesthetic injected. The external ring was recreated. Hemostasis was obtained. Brandie's fascia was closed with 2-0 Vicryl. The subcutaneous 3-0 Vicryl suture was done followed by a 4-0 Monocryl subcuticular suture. The hernia defect noted to be intact. Abdomen then desufflated. Ports were removed. The ports were closed with 4-0 Monocryl. Sterile dressing was placed. The patient tolerated procedure well. No intraoperative complications. All lap and instrument counts were correct at the end of the procedure. The patient was extubated and taken to the PACU. MD MARQUISE Jacobson/venus , 11:20 PM Assessment and Plan - Plan - small bowel obstruction keep NPO- continue with supportive care with IV fluid, pain control and antiemetics as needed- surgery consult appreciated; small bowel follow-thru pending. HAD surgery May 15-- HAD DX LAP- WITH LAP REDUCTION OF INGUINAL HERNIA, RIGHT INGUINAL HERNIA WITH MESH REPAIR BY DR SOUZA -hypokalemia; will replace and monitor.- REPLACE AGAIN HYPOMAG WILL REPLACE AGAIN -COPD; resume home inhalers- neb treatment as needed. -hypertension/ hypothyroidism; resume home meds when started on diet. -DVT prophylaxis ; SCD's Code Status: FULL CODE Discussed Condition With: RN AND PATIENT AND SURGERY AND CM Discharge Planning: Pending improvement and clearance by surgery
[2018-05-16] MEDS: Carvedilol 12.5 MG Tablet PO SCH (20:52)
[2018-05-16] MEDS: LORazepam 1 MG Tablet PO PRN (22:45)
[2018-05-17] MEDS: Morphine Sulfate Inj 2 MG/ML Vial IV.PUSH PRN ×4 (03:28→19:25)
[2018-05-17 09:40] LABS: Baso % (Auto) 0.2 % (0.0-2.0); Hematocrit 32.7 % (35.0-46.0); Hemoglobin 11.5 gm/dL (11.6-15.3); Lymph # (Auto) 0.7 th/mm3 (1.0-4.8); Lymph % (Auto) 9.7 % (9.0-44.0); Mean Corpuscular HGB Conc 35.1 % (32.0-36.0); Mean Corpuscular Volume 91.2 fL (80.0-100.0); Mean Platelet Volume 8.6 fL (7.0-11.0); Mono # (Auto) 1.1 th/mm3 (0.0-0.9); Mono % (Auto) 14.9 % (0.0-8.0); Neut # (Auto) 5.7 th/mm3 (1.8-7.7); Neut % (Auto) 75.2 % (16.0-70.0); Platelet Count 339 th/mm3 (150-450); Red Blood Count 3.59 mil/mm3 (4.00-5.30); Red Cell Distribution Width 13.7 % (11.6-17.2); White Blood Count 7.6 th/mm3 (4.0-11.0)
[2018-05-17] MEDS: Pantoprazole Sodium 20 MG DR Tablet PO SCH (09:48)
[2018-05-17] MEDS: Carvedilol 12.5 MG Tablet PO SCH ×2 (09:48→21:01)
[2018-05-17] MEDS: amLODIPine 5 MG Tablet PO SCH (09:48)
[2018-05-17] MEDS: Budesonide-Formoterol 160/4.5 MCG 6 GM Inhaler INH SCH ×2 (09:49→21:04)
[2018-05-17 10:16] LABS: Albumin 2.7 g/dL (3.4-5.0); Anion Gap 12 meq/L (5-15); Aspartate Aminotransferase 16 U/L (15-37); Blood Urea Nitrogen 4 mg/dL (7-18); Calcium 7.9 mg/dL (8.5-10.1); Carbon Dioxide 17.8 meq/L (21.0-32.0); Chloride 108 meq/L (98-107); Glomerular Filtration Rate Greater Than 89 mL/min (>89); Glucose,Random 84 mg/dL (74-106); Magnesium 1.9 mg/dL (1.5-2.5); Potassium 3.3 meq/L (3.5-5.1); Sodium 138 meq/L (136-145)
[2018-05-17 10:33] LABS: Alanine Aminotransferase 16 U/L (10-53); Alkaline Phosphatase 64 U/L (45-117); Phosphorus 0.5 mg/dL (2.5-4.9); Total Protein 5.8 g/dL (6.4-8.2)
--- NOTE | 2018-05-17 10:58 | P.PNGS ---
Subjective Interval history: Resting in bed Complaining of diarrhea Physical Exam Vital signs: Vital Signs 05/16/18 12:00 05/16/18 16:00 05/16/18 19:11 Temperature 98.2 F 98.0 F Pulse Rate 104 H 123 H Respiratory Rate 17 17 18 Blood Pressure 122/72 109/65 Pulse Oximetry 96 95 05/16/18 20:00 05/16/18 20:02 05/16/18 23:13 Temperature 97.8 F Pulse Rate 125 H 122 H Respiratory Rate 22 16 20 Blood Pressure 116/76 Pulse Oximetry 94 L 95 05/17/18 00:00 05/17/18 03:30 05/17/18 07:51 Temperature 98.1 F Pulse Rate 125 H Respiratory Rate 22 18 Blood Pressure 104/62 Pulse Oximetry 93 L 99 Intake & Output 05/16/18 05/17/18 05/17/18 18:59 06:59 18:59 Intake Total 1900 / 1900 1186 / 1186 Output Total 870 / 870 172 / 172 Balance 1030 / 1030 1014 / 1014 Weight 79 kg Intake: IV 1500 / 1500 1186 / 1186 NS + KCl 20 mEq Inj 1,000 ML @ 1000 / 1000 1086 / 1086 100 mls/hr IV.CONT .Q10H [facility] Rx #:[id number] KCl 10 mEq Premix Inj 10 meq In 300 / 300 100 / 100 100 ml @ 100 mls/hr IV.SIG Q1H [facility] Rx#:[id number] Ancef 2 GM Premix Inj 2 gm In 100 / 100 100 ml @ 200 mls/hr IV.SIG Q8H [facility] Rx#:[id number] Flagyl 500 MG Inj 100 ML @ 200 100 / 100 mls/hr IV.SIG Q8H [facility] Rx#: [id number] Oral 400 / 400 Output: Urine 700 / 700 2 / 2 Gastric Drainage 120 / 120 Right Nare 120 / 120 Wound Drainage 170 / 170 50 / 50 Left Lower Abdomen 170 / 170 50 / 50 Other: Date of Last Bowel Movement 05/16/18 # Bowel Movements 2 Narrative: Alert and awake Abd: lap sites c/d/i; RG with SS drainage--- copious drainage around insertion site--- dressing changed - Urinary Catheter Management straight cath 16fr Cath placed during this visit: no Results - Labs 05/17/18 06:54 05/17/18 06:54 Laboratory Results - last 24 hr 05/16/18 05/17/18 05/17/18 04:14 06:54 06:54 WBC 7.6 RBC 3.59 L Hgb 11.5 L Hct 32.7 L MCV 91.2 MCH 32.0 MCHC 35.1 RDW 13.7 Plt Count 339 MPV 8.6 Neut % (Auto) 75.2 H Lymph % (Auto) 9.7 Bremer % (Auto) 14.9 H Eos % (Auto) 0.0 Baso % (Auto) 0.2 Neut # (Auto) 5.7 Lymph # (Auto) 0.7 L Bremer # (Auto) 1.1 H Eos # (Auto) 0.0 Baso # (Auto) 0.0 WBC Differential . Differential Comment Auto diff final Sodium 138 Potassium 3.3 L Chloride 108 H Carbon Dioxide 17.8 L Anion Gap 12 BUN 4 L Creatinine 0.61 Estimated GFR Greater than 89 Random Glucose 84 Hemoglobin A1c 5.5 Calcium 7.9 L Phosphorus 0.5 L Magnesium 1.9 Total Bilirubin 0.5 AST 16 ALT 16 Alkaline Phosphatase 64 Total Protein 5.8 L Albumin 2.7 L - Imaging Imaging: ITS Impressions Abdomen/Pelvis CT 05/12/18 20:18 CONCLUSION: 1. CT findings of a small bowel obstruction with a transition identified in the right lateral abdomen in the region of the terminal ileum. The distal terminal ileum is completely decompressed. 2. Right inguinal hernia measuring 5 cm in diameter again contains fat and fluid. It also appears to contain the right-sided dome or urachus of the urinary bladder. 3. Small moderate-sized hiatal hernia. Small Bowel X-Ray 05/14/18 00:00 CONCLUSION: Small bowel obstruction. Assessment and Plan - Assessment (1) Incarcerated right inguinal hernia Code(s): K40.30 - Unilateral inguinal hernia, with obstruction, without gangrene , not specified as recurrent Status: Acute - Plan 67 year old female s/p dx lap; open RIGHT inguinal hernia repair; RG drain placement -Advance to full liquids -Routine RG care -OOB as tolerated
--- NOTE | 2018-05-17 13:57 | P.PNIM ---
Subjective Interval history: Chief Complaint: constipation History of Present Illness: patient is a 67 y/o female with history of hypertension, COPD , hernia repair, who presented to ER with constipation.she says that she hasn't had any bowel movement since last week and she couldn't pass any gas. later she started to have generalized abdominal discomfort. she had some nausea but with no emesis. she denies any fever or chills. 05-14 f/u; bowel obstruction in no acute distress. still with abdominal pain but it's fairly controlled. no nausea or emesis. 05-15 TRANSFERRED TO [facility] SCHEDULED TO GO FOR SURGERY TODAY SEEN PRIOR TO MOVEMENT TO THE OR SOME ABDOMINAL PAIN HAD BLACK/DARK DIARRHEA STOOLS DW RN AND PT AND CM WANTS SEROQUEL RESTARTED AND ATIVAN RESTARTED 05-16 HAD SURGERY ON 05-15 HAD HYPOKALEMIA AND HYPOMAGNESIA WILL REPLACE 05-17 DID NOT LET ALL POTASSIUM AND MAGNESIUM BE REPLACED COMPLAINS OF ABDOMINAL BLOATING HAS SOME ABDOMINAL PAIN DW RN AND PT AND CM AND SURGERY Physical Exam Vital signs: Vital Signs 05/16/18 16:00 05/16/18 19:11 05/16/18 20:00 Temperature 98.0 F 97.8 F Pulse Rate 123 H 125 H Respiratory Rate 17 18 22 Blood Pressure 109/65 116/76 Pulse Oximetry 95 94 L 05/16/18 20:02 05/16/18 23:13 05/17/18 00:00 Temperature 98.1 F Pulse Rate 122 H 125 H Respiratory Rate 16 20 22 Blood Pressure 104/62 Pulse Oximetry 95 93 L 05/17/18 03:30 05/17/18 07:51 05/17/18 08:00 Temperature 97.7 F Pulse Rate 114 H Respiratory Rate 18 20 Blood Pressure 85/57 L Pulse Oximetry 99 94 L 05/17/18 13:47 Temperature Pulse Rate 104 H Respiratory Rate 16 Blood Pressure Pulse Oximetry Intake & Output 05/16/18 05/17/18 05/17/18 18:59 06:59 18:59 Intake Total 1900 / 1900 1186 / 1186 Output Total 870 / 870 172 / 172 Balance 1030 / 1030 1014 / 1014 Weight 79 kg Intake: IV 1500 / 1500 1186 / 1186 NS + KCl 20 mEq Inj 1,000 ML @ 1000 / 1000 1086 / 1086 100 mls/hr IV.CONT .Q10H AMBROCIO Rx #:[id number] KCl 10 mEq Premix Inj 10 meq In 300 / 300 100 / 100 100 ml @ 100 mls/hr IV.SIG Q1H AMBROCIO Rx#:[id number] Ancef 2 GM Premix Inj 2 gm In 100 / 100 100 ml @ 200 mls/hr IV.SIG Q8H AMBROCIO Rx#:[id number] Flagyl 500 MG Inj 100 ML @ 200 100 / 100 mls/hr IV.SIG Q8H AMBROCIO Rx#: [id number] Oral 400 / 400 Output: Urine 700 / 700 2 / 2 Gastric Drainage 120 / 120 Right Nare 120 / 120 Wound Drainage 170 / 170 50 / 50 Left Lower Abdomen 170 / 170 50 / 50 Other: Date of Last Bowel Movement 05/16/18 # Bowel Movements 2 Narrative: GENERAL: Awake alert and oriented x3 talkative and cooperative in mild to moderate distress SKIN: Warm and dry. HEAD: Atraumatic. Normocephalic. EYES: Pupils equal and round. No scleral icterus. No injection or drainage. NGT TO LIS ENT: No nasal bleeding or discharge. Mucous membranes pink and moist. Tongue is midline NECK: Trachea midline. No JVD. Supple CARDIOVASCULAR: Regular rate and rhythm. S1-S2 no S3 or S4 RESPIRATORY: No accessory muscle use. Clear to auscultation. Breath sounds equal bilaterally. GASTROINTESTINAL: Abdomen soft, some tenderness and some distention. hepatic and splenic margins not palpable. LESS HYPOACTIVE BOWEL SOUNDS--DRAIN IN PLACE MUSCULOSKELETAL: Extremities without clubbing, cyanosis, or edema. No obvious deformities. NEUROLOGICAL: Awake and alert. No obvious cranial nerve deficits. Motor grossly within normal limits. Five out of 5 muscle strength in the arms and legs. Normal speech. PSYCHIATRIC: Appropriate mood and affect; insight and judgment normal. - Urinary Catheter Management straight cath 16fr Cath placed during this visit: no Results - Labs CBC & Chem 7: 05/17/18 06:54 05/17/18 06:54 Laboratory Results - last 24 hr 05/16/18 05/17/18 05/17/18 04:14 06:54 06:54 WBC 7.6 RBC 3.59 L Hgb 11.5 L Hct 32.7 L MCV 91.2 MCH 32.0 MCHC 35.1 RDW 13.7 Plt Count 339 MPV 8.6 Neut % (Auto) 75.2 H Lymph % (Auto) 9.7 [place] % (Auto) 14.9 H Eos % (Auto) 0.0 Baso % (Auto) 0.2 Neut # (Auto) 5.7 Lymph # (Auto) 0.7 L [place] # (Auto) 1.1 H Eos # (Auto) 0.0 Baso # (Auto) 0.0 WBC Differential . Differential Comment Auto diff final Sodium 138 Potassium 3.3 L Chloride 108 H Carbon Dioxide 17.8 L Anion Gap 12 BUN 4 L Creatinine 0.61 Estimated GFR Greater than 89 Random Glucose 84 Hemoglobin A1c 5.5 Calcium 7.9 L Phosphorus 0.5 L Magnesium 1.9 Total Bilirubin 0.5 AST 16 ALT 16 Alkaline Phosphatase 64 Total Protein 5.8 L Albumin 2.7 L - Imaging ITS Impressions Abdomen/Pelvis CT 05/12/18 20:18 CONCLUSION: 1. CT findings of a small bowel obstruction with a transition identified in the right lateral abdomen in the region of the terminal ileum. The distal terminal ileum is completely decompressed. 2. Right inguinal hernia measuring 5 cm in diameter again contains fat and fluid. It also appears to contain the right-sided dome or urachus of the urinary bladder. 3. Small moderate-sized hiatal hernia. Small Bowel X-Ray 05/14/18 00:00 CONCLUSION: Small bowel obstruction. - Procedures 05/15/2018 PREOPERATIVE DIAGNOSIS: Small bowel obstruction. POSTOPERATIVE DIAGNOSIS: Small-bowel obstruction from incarceration of right inguinal hernia. SURGEON: Eliseo Souza MD PROCEDURE PERFORMED: 1. Diagnostic laparoscopy. 2. Laparoscopic reduction of inguinal hernia. 3. Open right inguinal hernia repair with mesh, 3 x 6 atrium mesh. [employer]: Trenton De Leon MD. ANESTHESIA: GETA. IV FLUIDS: See anesthesia sheet. ESTIMATED BLOOD LOSS: 10 mL. DRAINS: A 10-Syriac flat Ranjit drain. WOUND CLASSIFICATION: Clean. SPECIMENS: None. FINDINGS: Large right inguinal hernia, indurated ischemic mesentery. Bowel appeared viable, but somewhat hemorrhagic to the small bowel causing bowel obstruction with dilated proximal loops and decompressed distal loops. INDICATIONS FOR PROCEDURE: The patient is a 67-year-old female who presented with acute onset of abdominal pain and abdominal distention. The patient with a history of Aaron fundoplication and unable to burp or vomit. She had CT scan workup showing a significantly dilated bowel loops with decompressed distal bowel loops. Right inguinal hernia that did not contain any small bowel on CT scan and a small bowel follow through showing non-passes of contrast at 4-1/2 hours. Decision was made for diagnostic laparoscopy, laparoscopic lysis of adhesion with possible bowel resection. DETAILS OF PROCEDURE: The patient was taken to the operating suite, placed in supine position. She was prepped and draped in the usual sterile fashion after induction of general endotracheal anesthesia. Brief timeout done stating correct patient, procedure, surgical site, and all were in agreement with this. Attention first directed to the left upper quadrant where local anesthetic was injected. A small stab jenna incision was made with a 15 blade. A Visiport 5 mm Optiview port was done to enter the abdomen safely. Abdomen insufflated to 15 mm pneumoperitoneum. On cursory inspection, no evidence of injury. The abdomen was noted to be markedly dilated. There was noted to be serosanguineous fluid in the dependent pelvis. Further, it was noted a right inguinal hernia with bowel mesentery contained within creating bowel obstruction. Two other ports placed in the left lower quadrant and left mid quadrant. The mesentery was reduced from the hernia. Hernia was somewhat large containing sac. The bowel noted to be viable, but somewhat hemorrhagic and noted to be patent. The mesentery was somewhat indurated and also somewhat hemorrhagic, but also noted to be relatively viable. Decision at this point was to not resect the bowel due to it looking viable and pink and placing a small drain at the port incision. 2-0 nylon used to secure this, which was placed in the dependent pelvis and near questionable bowel. Then, decision was made to repair the right inguinal hernia. This was done in an open technique. The patient had a previous tummy tuck scar. Incision was done along the tummy tuck scar, 5 cm. The tummy tuck created adhesion and distortion of anatomy; however, #15 blade used followed by Bovie cautery to incise along the scar of the tummy tuck incision. This was done down to the external oblique fascia. Stab jenna was made with a 15 blade in the direction of the external oblique fibers. Metzenbaum scissors were used to run towards the external ring and then proximal. Hemostats placed on the external oblique fascia. Ilioinguinal nerve was cut and removed. Large deep hernia defect noted. The inguinal floor was somewhat thin. A 3 x 6 atrium mesh was obtained. The pubic tubercle was palpated. 0 Ethibonds were used to secure the atrial mesh to the pubic tubercle along the shelving edge and conjoined tendon. The mesh noticed to sit flat and was well secured. The external oblique was then repaired with a 2-0 Vicryl. Local anesthetic injected. The external ring was recreated. Hemostasis was obtained. Brandie's fascia was closed with 2-0 Vicryl. The subcutaneous 3-0 Vicryl suture was done followed by a 4-0 Monocryl subcuticular suture. The hernia defect noted to be intact. Abdomen then desufflated. Ports were removed. The ports were closed with 4-0 Monocryl. Sterile dressing was placed. The patient tolerated procedure well. No intraoperative complications. All lap and instrument counts were correct at the end of the procedure. The patient was extubated and taken to the PACU. MD MARQUISE Jacobson/venus , 11:20 PM Assessment and Plan - Plan - small bowel obstruction continue with supportive care with IV fluid, pain control and antiemetics as needed- surgery consult appreciated; small bowel follow-thru pending. HAD surgery May 15-- HAD DX LAP- WITH LAP REDUCTION OF INGUINAL HERNIA, RIGHT INGUINAL HERNIA WITH MESH REPAIR BY DR SOUZA PAIN CONTROL DIET PER SURGERY -hypokalemia; will replace and monitor.- REPLACE AGAIN- NEEDS REPLACEMENT AGAIN HYPOMAG WILL REPLACE AGAIN -COPD; resume home inhalers- neb treatment as needed. -hypertension/ hypothyroidism; resume home meds when started on diet. -DVT prophylaxis ; SCD's Code Status: FULL CODE Discussed Condition With: RN AND PT AND CM AND SURGERY Discharge Planning: Pending improvement and clearance by surgery
[2018-05-17] MEDS: LORazepam 1 MG Tablet PO PRN (21:01)
[2018-05-18] MEDS: Morphine Sulfate Inj 2 MG/ML Vial IV.PUSH PRN ×5 (00:35→22:05)
[2018-05-18 05:58] LABS: Baso % (Auto) 0.3 % (0.0-2.0); Hematocrit 31.5 % (35.0-46.0); Hemoglobin 10.9 gm/dL (11.6-15.3); Lymph % (Auto) 13.3 % (9.0-44.0); Mean Corpuscular HGB Conc 34.6 % (32.0-36.0); Mean Corpuscular Hemoglobin 31.8 pg (27.0-34.0); Mean Platelet Volume 8.5 fL (7.0-11.0); Mono # (Auto) 1.2 th/mm3 (0.0-0.9); Mono % (Auto) 16.2 % (0.0-8.0); Neut # (Auto) 5.1 th/mm3 (1.8-7.7); Neut % (Auto) 70.2 % (16.0-70.0); Platelet Count 329 th/mm3 (150-450); Red Blood Count 3.43 mil/mm3 (4.00-5.30); Red Cell Distribution Width 13.6 % (11.6-17.2); White Blood Count 7.3 th/mm3 (4.0-11.0)
[2018-05-18 06:01] LABS: Albumin 2.4 g/dL (3.4-5.0); Anion Gap 13 meq/L (5-15); Aspartate Aminotransferase 27 U/L (15-37); Blood Urea Nitrogen 6 mg/dL (7-18); Calcium 7.5 mg/dL (8.5-10.1); Carbon Dioxide 14.9 meq/L (21.0-32.0); Chloride 112 meq/L (98-107); Glomerular Filtration Rate Greater Than 89 mL/min (>89); Glucose,Random 88 mg/dL (74-106); Magnesium 1.7 mg/dL (1.5-2.5); Potassium 3.7 meq/L (3.5-5.1); Sodium 140 meq/L (136-145)
[2018-05-18 06:05] LABS: Alanine Aminotransferase 19 U/L (10-53); Alkaline Phosphatase 62 U/L (45-117); Phosphorus 0.6 mg/dL (2.5-4.9); Total Protein 5.7 g/dL (6.4-8.2)
[2018-05-18] MEDS: Budesonide-Formoterol 160/4.5 MCG 6 GM Inhaler INH SCH ×2 (10:23→22:05)
[2018-05-18] MEDS: amLODIPine 5 MG Tablet PO SCH (10:24)
[2018-05-18] MEDS: Carvedilol 12.5 MG Tablet PO SCH ×2 (10:24→22:04)
[2018-05-18] MEDS: Pantoprazole Sodium 20 MG DR Tablet PO SCH (10:25)
--- NOTE | 2018-05-18 11:35 | XR ---
EXAM DATE: 05/18/2018 11:24 AM EDT AGE/SEX: 67 years / Female INDICATIONS: Distention CLINICAL DATA: This is the patient's initial encounter. Patient reports that signs and symptoms have been present for 3 days and indicates a pain score of 9/10. MEDICAL/SURGICAL HISTORY: Chronic obstructive pulmonary disease. Hypertension. . hiatal hernia , breast augmentation COMPARISON: HPO, SMALL BOWEL W GASTROGRAFIN, 05/14/2018. . FINDINGS: There is a large amount of air within the stomach. There is a moderate amount of air within the smal l bowel decreased from the . There does appear to be some air within the sigmoid colon. There is been previous lumbar fixation. CONCLUSION: Significant air remains within the stomach although there is clearly less small bowel air today than it was on the Electronically signed by: Viktor Wu MD 05/18/2018 11:34 AM EDT
--- NOTE | 2018-05-18 12:59 | P.PNGS ---
Subjective Interval history: Resting in bed Complaints of abdominal distention Physical Exam Vital signs: Vital Signs 05/17/18 13:47 05/17/18 16:00 05/17/18 20:00 Temperature 97.8 F 97.3 F L Pulse Rate 104 H 90 98 H Respiratory Rate 16 18 17 Blood Pressure 105/59 L 106/65 Pulse Oximetry 92 L 96 05/17/18 21:20 05/18/18 00:00 05/18/18 01:11 Temperature 97.8 F Pulse Rate 110 H 100 H 100 H Respiratory Rate 26 H 17 20 Blood Pressure 104/54 L Pulse Oximetry 99 98 05/18/18 01:31 05/18/18 08:00 05/18/18 08:33 Temperature 98 F Pulse Rate 102 H 100 H Respiratory Rate 18 18 20 Blood Pressure 112/68 Pulse Oximetry 98 05/18/18 12:13 Temperature Pulse Rate 111 H Respiratory Rate 22 Blood Pressure Pulse Oximetry Intake & Output 05/17/18 05/18/18 05/18/18 18:59 06:59 18:59 Intake Total 1000 / 1000 100 / 100 Output Total 100 / 100 Balance 900 / 900 100 / 100 Weight 78.7 kg Intake: IV 1000 / 1000 100 / 100 NS + KCl 20 mEq Inj 1,000 ML @ 1000 / 1000 100 / 100 100 mls/hr IV.CONT .Q10H AMBROCIO Rx #:[id number] Output: Wound Drainage 100 / 100 # 10 Abdomen 100 / 100 Other: # Voids 3 Date of Last Bowel Movement 05/17/18 05/17/18 # Bowel Movements 3 Narrative: Alert and awake Abd: distended and tender to palpation; ROBSON with SS drainage; RIGHT inguinal incision c/d/i with mild bruising - Urinary Catheter Management straight cath 16fr Cath placed during this visit: no Results - Labs 05/20/18 06:35 05/20/18 07:05 Laboratory Results - last 24 hr 05/18/18 05/18/18 05:17 05:17 WBC 7.3 RBC 3.43 L Hgb 10.9 L Hct 31.5 L MCV 92.0 MCH 31.8 MCHC 34.6 RDW 13.6 Plt Count 329 MPV 8.5 Neut % (Auto) 70.2 H Lymph % (Auto) 13.3 [place] % (Auto) 16.2 H Eos % (Auto) 0.0 Baso % (Auto) 0.3 Neut # (Auto) 5.1 Lymph # (Auto) 1.0 [place] # (Auto) 1.2 H Eos # (Auto) 0.0 Baso # (Auto) 0.0 WBC Differential . Differential Comment Auto diff final Sodium 140 Potassium 3.7 Chloride 112 H Carbon Dioxide 14.9 L Anion Gap 13 BUN 6 L Creatinine 0.52 Estimated GFR Greater than 89 Random Glucose 88 Calcium 7.5 L Phosphorus 0.6 L Magnesium 1.7 Total Bilirubin 0.6 AST 27 ALT 19 Alkaline Phosphatase 62 Total Protein 5.7 L Albumin 2.4 L - Imaging Imaging: ITS Impressions Abdomen/Pelvis CT 05/12/18 20:18 CONCLUSION: 1. CT findings of a small bowel obstruction with a transition identified in the right lateral abdomen in the region of the terminal ileum. The distal terminal ileum is completely decompressed. 2. Right inguinal hernia measuring 5 cm in diameter again contains fat and fluid. It also appears to contain the right-sided dome or urachus of the urinary bladder. 3. Small moderate-sized hiatal hernia. Small Bowel X-Ray 05/14/18 00:00 CONCLUSION: Small bowel obstruction. Abdomen X-Ray 05/18/18 00:00 CONCLUSION: Significant air remains within the stomach although there is clearly less small bowel air today than it was on the Assessment and Plan - Assessment (1) Incarcerated right inguinal hernia Code(s): K40.30 - Unilateral inguinal hernia, with obstruction, without gangrene , not specified as recurrent Status: Acute - Plan 67 year old female s/p dx lap; open RIGHT inguinal hernia repair; ROBSON drain placement -KUB shows large distended stomach--- will place NGT to LIWS -NPO -Continue IVF -Continue routine ROBSON drain management - Attending Attestation ng placed 500cc returned continue robson sxn pt going slowly possible post op ileus npo The exam, history, and the medical decision-making described in the above note were completed with the assistance of the mid-level provider. I reviewed and agree with the findings presented. I attest that I had a [id number] encounter with the patient on the same day, and personally performed and documented my assessment and findings in the medical record.
--- NOTE | 2018-05-18 16:38 | P.PNIM ---
Subjective Interval history: Follow-up small bowel obstruction, abdominal pain, nausea, hypertension, COPD . Patient seen and examined laying in bed, complaint of abdominal discomfort, slight abdominal pain stated passing small gas complained of some nausea without vomiting. Patient denies any fever or chills, denies any chest pain, or shortness of breath, denies any diarrhea or constipation. Physical Exam Vital signs: Vital Signs 05/17/18 20:00 05/17/18 21:20 05/18/18 00:00 Temperature 97.3 F L 97.8 F Pulse Rate 98 H 110 H 100 H Respiratory Rate 17 26 H 17 Blood Pressure 106/65 104/54 L Pulse Oximetry 96 99 98 05/18/18 01:11 05/18/18 01:31 05/18/18 08:00 Temperature 98 F Pulse Rate 100 H 102 H Respiratory Rate 20 18 18 Blood Pressure 112/68 Pulse Oximetry 98 05/18/18 08:33 05/18/18 12:00 05/18/18 12:13 Temperature 97.5 F L Pulse Rate 100 H 107 H 111 H Respiratory Rate 20 18 22 Blood Pressure 116/77 Pulse Oximetry 95 Intake & Output 05/17/18 05/18/18 05/18/18 18:59 06:59 18:59 Intake Total 1000 / 1000 100 / 100 Output Total 100 / 100 Balance 900 / 900 100 / 100 Weight 78.7 kg Intake: IV 1000 / 1000 100 / 100 NS + KCl 20 mEq Inj 1,000 ML @ 1000 / 1000 100 / 100 100 mls/hr IV.CONT .Q10H AMBROCIO Rx #:[id number] Output: Wound Drainage 100 / 100 # 10 Abdomen 100 / 100 Other: # Voids 3 Date of Last Bowel Movement 05/17/18 05/17/18 # Bowel Movements 3 Narrative: GENERAL: Well-developed, well-nourished, elderly female in no apparent distress SKIN: Warm and dry. HEAD: Atraumatic. Normocephalic. EYES: Pupils equal and round. No scleral icterus. No injection or drainage. ENT: No nasal bleeding or discharge. Mucous membranes pink and moist. NECK: Trachea midline. No JVD. CARDIOVASCULAR: Regular rate and rhythm. RESPIRATORY: No accessory muscle use. Clear to auscultation. Breath sounds equal bilaterally. GASTROINTESTINAL: Abdomen with some distention, and slight tenderness. Hepatic and splenic margins not palpable. Multiple abdominal incision with Steri- Strips dry and intact, RG with serosanguineous drainage, right inguinal incision clean dry and intact with mild bruising MUSCULOSKELETAL: Extremities without clubbing, cyanosis, or edema. No obvious deformities. NEUROLOGICAL: Awake and alert and oriented x3. No obvious cranial nerve deficits. Motor grossly within normal limits. Generalized weakness moving all 4 extremities normal speech. PSYCHIATRIC: Appropriate mood and affect; insight and judgment normal. - Urinary Catheter Management straight cath 16fr Cath placed during this visit: no Results - Labs CBC & Chem 7: 05/18/18 05:17 05/18/18 05:17 Laboratory Results - last 24 hr 05/18/18 05/18/18 05:17 05:17 WBC 7.3 RBC 3.43 L Hgb 10.9 L Hct 31.5 L MCV 92.0 MCH 31.8 MCHC 34.6 RDW 13.6 Plt Count 329 MPV 8.5 Neut % (Auto) 70.2 H Lymph % (Auto) 13.3 [place] % (Auto) 16.2 H Eos % (Auto) 0.0 Baso % (Auto) 0.3 Neut # (Auto) 5.1 Lymph # (Auto) 1.0 [place] # (Auto) 1.2 H Eos # (Auto) 0.0 Baso # (Auto) 0.0 WBC Differential . Differential Comment Auto diff final Sodium 140 Potassium 3.7 Chloride 112 H Carbon Dioxide 14.9 L Anion Gap 13 BUN 6 L Creatinine 0.52 Estimated GFR Greater than 89 Random Glucose 88 Calcium 7.5 L Phosphorus 0.6 L Magnesium 1.7 Total Bilirubin 0.6 AST 27 ALT 19 Alkaline Phosphatase 62 Total Protein 5.7 L Albumin 2.4 L - Imaging Impressions Abdomen X-Ray 05/18/18 00:00 CONCLUSION: Significant air remains within the stomach although there is clearly less small bowel air today than it was on the 26 - Procedures 05/15/2018 PREOPERATIVE DIAGNOSIS: Small bowel obstruction. POSTOPERATIVE DIAGNOSIS: Small-bowel obstruction from incarceration of right inguinal hernia. SURGEON: Eliseo Souza MD PROCEDURE PERFORMED: 1. Diagnostic laparoscopy. 2. Laparoscopic reduction of inguinal hernia. 3. Open right inguinal hernia repair with mesh, 3 x 6 atrium mesh. MILLING GENERAL SUPERINTENDENT: Trenton De Leon MD. ANESTHESIA: GETA. IV FLUIDS: See anesthesia sheet. ESTIMATED BLOOD LOSS: 10 mL. DRAINS: A 10-American flat Ranjit drain. WOUND CLASSIFICATION: Clean. SPECIMENS: None. FINDINGS: Large right inguinal hernia, indurated ischemic mesentery. Bowel appeared viable, but somewhat hemorrhagic to the small bowel causing bowel obstruction with dilated proximal loops and decompressed distal loops. INDICATIONS FOR PROCEDURE: The patient is a 67-year-old female who presented with acute onset of abdominal pain and abdominal distention. The patient with a history of Aaron fundoplication and unable to burp or vomit. She had CT scan workup showing a significantly dilated bowel loops with decompressed distal bowel loops. Right inguinal hernia that did not contain any small bowel on CT scan and a small bowel follow through showing non-passes of contrast at 4-1/2 hours. Decision was made for diagnostic laparoscopy, laparoscopic lysis of adhesion with possible bowel resection. DETAILS OF PROCEDURE: The patient was taken to the operating suite, placed in supine position. She was prepped and draped in the usual sterile fashion after induction of general endotracheal anesthesia. Brief timeout done stating correct patient, procedure, surgical site, and all were in agreement with this. Attention first directed to the left upper quadrant where local anesthetic was injected. A small stab jenna incision was made with a 15 blade. A Visiport 5 mm Optiview port was done to enter the abdomen safely. Abdomen insufflated to 15 mm pneumoperitoneum. On cursory inspection, no evidence of injury. The abdomen was noted to be markedly dilated. There was noted to be serosanguineous fluid in the dependent pelvis. Further, it was noted a right inguinal hernia with bowel mesentery contained within creating bowel obstruction. Two other ports placed in the left lower quadrant and left mid quadrant. The mesentery was reduced from the hernia. Hernia was somewhat large containing sac. The bowel noted to be viable, but somewhat hemorrhagic and noted to be patent. The mesentery was somewhat indurated and also somewhat hemorrhagic, but also noted to be relatively viable. Decision at this point was to not resect the bowel due to it looking viable and pink and placing a small drain at the port incision. 2-0 nylon used to secure this, which was placed in the dependent pelvis and near questionable bowel. Then, decision was made to repair the right inguinal hernia. This was done in an open technique. The patient had a previous tummy tuck scar. Incision was done along the tummy tuck scar, 5 cm. The tummy tuck created adhesion and distortion of anatomy; however, #15 blade used followed by Bovie cautery to incise along the scar of the tummy tuck incision. This was done down to the external oblique fascia. Stab jenna was made with a 15 blade in the direction of the external oblique fibers. Metzenbaum scissors were used to run towards the external ring and then proximal. Hemostats placed on the external oblique fascia. Ilioinguinal nerve was cut and removed. Large deep hernia defect noted. The inguinal floor was somewhat thin. A 3 x 6 atrium mesh was obtained. The pubic tubercle was palpated. 0 Ethibonds were used to secure the atrial mesh to the pubic tubercle along the shelving edge and conjoined tendon. The mesh noticed to sit flat and was well secured. The external oblique was then repaired with a 2-0 Vicryl. Local anesthetic injected. The external ring was recreated. Hemostasis was obtained. Brandie's fascia was closed with 2-0 Vicryl. The subcutaneous 3-0 Vicryl suture was done followed by a 4-0 Monocryl subcuticular suture. The hernia defect noted to be intact. Abdomen then desufflated. Ports were removed. The ports were closed with 4-0 Monocryl. Sterile dressing was placed. The patient tolerated procedure well. No intraoperative complications. All lap and instrument counts were correct at the end of the procedure. The patient was extubated and taken to the PACU. MD MARQUISE Jacobson/venus , 11:20 PM Assessment and Plan - Assessment (1) COPD (chronic obstructive pulmonary disease) Code(s): J44.9 - Chronic obstructive pulmonary disease, unspecified Status: Acute (2) Hypertension Code(s): I10 - Essential (primary) hypertension Status: Acute (3) Hypothyroidism Code(s): E03.9 - Hypothyroidism, unspecified Status: Acute (4) Small bowel obstruction Code(s): K56.609 - Unspecified intestinal obstruction, unspecified as to partial versus complete obstruction Status: Acute (5) Incarcerated right inguinal hernia Code(s): K40.30 - Unilateral inguinal hernia, with obstruction, without gangrene , not specified as recurrent Status: Acute - Plan This patient is a 67 y/o female with history of hypertension, COPD , hernia repair, who presented to ER with constipation. She says that she hasn't had any bowel movement since last week and she couldn't pass any gas. Came into the emergency room for evaluation and treatment Small bowel obstruction related to incarceration of right inguinal hernia Unspecified intestinal obstruction, unspecified as to partial versus complete obstruction, Acute Incarcerated right inguinal hernia Unilateral inguinal hernia, with obstruction, without gangrene, not specified as recurrent , Acute -Status post diagnostic laparoscopy/laparoscopic reduction of inguinal hernia/ open right inguinal hernia repair with mesh with Dr. Souza -NG tube to low intermittent suction for distended stomach -Continue IV fluid -Incision care, RG drain management -Pain medication with bowel regimen -As needed Reglan COPD (chronic obstructive pulmonary disease) Chronic obstructive pulmonary disease, unspecified, Acute -No shortness of breath no wheezes Continue DuoNeb treatment as needed Monitor respiratory status Hypertension Essential (primary) hypertension , Acute -Blood pressure controlled -Continue amlodipine, Coreg -Monitor blood pressure Hypothyroidism -Continue levothyroxine -Monitor TSH and T4 Hypokalemia Likely due to GI losses -Replaced as needed -Monitor BMP DVT prophylaxis: SCD, start Lovenox if cleared with surgeon Code Status: Full code Discussed Condition With: Patient, nurse, general surgery/Kathy Childs
[2018-05-18] MEDS: Scopalamine 1.5 MG Patch T-DERMAL SCH (19:45)
[2018-05-18] MEDS: LORazepam 1 MG Tablet PO PRN (22:04)
[2018-05-19] MEDS: Morphine Sulfate Inj 2 MG/ML Vial IV.PUSH PRN ×4 (06:14→20:40)
[2018-05-19] MEDS: Pantoprazole Sodium 20 MG DR Tablet PO SCH (09:51)
[2018-05-19] MEDS: Carvedilol 12.5 MG Tablet PO SCH ×2 (09:51→20:41)
[2018-05-19] MEDS: amLODIPine 5 MG Tablet PO SCH (09:51)
--- NOTE | 2018-05-19 09:54 | XR ---
EXAM DATE: 05/19/2018 9:29 AM EDT AGE/SEX: 67 years / Female INDICATIONS: Abdomen pain, obstruction. CLINICAL DATA: This is the patient's subsequent encounter. Patient reports that signs and symptoms h ave been present for 4 - 6 days and indicates a pain score of 8/10. MEDICAL/SURGICAL HISTORY: . Chronic obstructive pulmonary disease. Hypertension. hiatal hernia section. breast augmentation. Rt inguinal hernia repair. Hiatal hernia repair COMPARISON: [facility], ABDOMEN 1V KUB, 05/18/2018. . FINDINGS: The bowel gas pattern is within normal limits. Note is made of a nasogastric tube within the stomach. Note is made of a RG drain in the low pelvis. No findings to indicate a bowel obstruction are present. There are postsurgical changes within the spine. CONCLUSION: There has been interval placement of a nasogastric tube with decompression of the stomach. No findings to indicate a bowel obstruction identified. There is gas and stool identified throughout the small bowel and colon. Electronically signed by: Bi Rodriguez MD 05/19/2018 9:52 AM EDT
--- NOTE | 2018-05-19 10:07 | P.PNGS ---
Subjective Patient reports: feels better (has diarrhea, small flatus) Physical Exam Vital signs: Vital Signs 05/18/18 12:00 05/18/18 12:13 05/18/18 16:00 Temperature 97.5 F L 97.3 F L Pulse Rate 107 H 111 H 100 H Respiratory Rate 18 22 18 Blood Pressure 116/77 105/68 Pulse Oximetry 95 96 05/18/18 20:00 05/18/18 21:51 05/19/18 00:00 Temperature 97.0 F L 97.2 F L Pulse Rate 109 H 95 H 104 H Respiratory Rate 17 16 18 Blood Pressure 100/69 108/60 Pulse Oximetry 97 96 05/19/18 03:25 05/19/18 08:00 05/19/18 08:29 Temperature 98.3 F Pulse Rate 84 91 H Respiratory Rate 18 17 18 Blood Pressure 93/51 L Pulse Oximetry 93 L Intake & Output 05/18/18 05/19/18 05/19/18 18:59 06:59 18:59 Intake Total 1000 / 1000 1400 / 1400 Output Total 80 / 80 966 / 966 Balance 920 / 920 434 / 434 Weight 78.5 kg Intake: IV 1000 / 1000 1000 / 1000 NS + KCl 20 mEq Inj 1,000 ML @ 1000 / 1000 1000 / 1000 100 mls/hr IV.CONT .Q10H AMBROCIO Rx #:[id number] Oral 400 / 400 Output: Urine 6 / 6 Gastric Drainage 900 / 900 Right Nare 900 / 900 Wound Drainage 80 / 80 60 / 60 Left Lower Abdomen 80 / 80 60 / 60 Other: Date of Last Bowel Movement 05/17/18 05/18/18 # Bowel Movements 10 - Routine Cardiovascular Exam Present: RRR - Routine Abdominal Exam Present: soft, distended - Urinary Catheter Management straight cath 16fr Cath placed during this visit: no Results - Labs 05/18/18 05:17 05/18/18 05:17 - Imaging Imaging: ITS Impressions Abdomen/Pelvis CT 05/12/18 20:18 CONCLUSION: 1. CT findings of a small bowel obstruction with a transition identified in the right lateral abdomen in the region of the terminal ileum. The distal terminal ileum is completely decompressed. 2. Right inguinal hernia measuring 5 cm in diameter again contains fat and fluid. It also appears to contain the right-sided dome or urachus of the urinary bladder. 3. Small moderate-sized hiatal hernia. Small Bowel X-Ray 05/14/18 00:00 CONCLUSION: Small bowel obstruction. Abdomen X-Ray 05/19/18 08:00 CONCLUSION: There has been interval placement of a nasogastric tube with decompression of the stomach. No findings to indicate a bowel obstruction identified. There is gas and stool identified throughout the small bowel and colon. Assessment and Plan - Assessment (1) Incarcerated right inguinal hernia Code(s): K40.30 - Unilateral inguinal hernia, with obstruction, without gangrene , not specified as recurrent Status: Acute - Plan sbo, s/p dx lap, right inguinal hernia repair axr: air in rectum, stool in colon plan NG placed yesterday, keep on intermittent sxn still slow improvement consider take back for dx lap, sb resection if no improvement is the next several days ok for ice chips ambulate IS stool softners ok for lovenox
--- NOTE | 2018-05-19 11:17 | P.PNIM ---
Subjective Interval history: Follow-up small bowel obstruction, status post diagnostic lap with right inguinal hernia repair, abdominal pain, nausea, hypertension, COPD. Patient seen and examined laying in bed, stated abdomen feeling better since the NG tube , however still nauseated without vomiting. Patient stated passing small gas, and loose stools. Patient discussed surgeon was just pain Dr. Souza, discussed will possibly go back to surgery symptoms does not improve. Patient denies any headache or dizziness, denies any chest pain or shortness of breath, denies any Physical Exam Vital signs: Vital Signs 05/18/18 12:00 05/18/18 12:13 05/18/18 16:00 Temperature 97.5 F L 97.3 F L Pulse Rate 107 H 111 H 100 H Respiratory Rate 18 22 18 Blood Pressure 116/77 105/68 Pulse Oximetry 95 96 05/18/18 20:00 05/18/18 21:51 05/19/18 00:00 Temperature 97.0 F L 97.2 F L Pulse Rate 109 H 95 H 104 H Respiratory Rate 17 16 18 Blood Pressure 100/69 108/60 Pulse Oximetry 97 96 05/19/18 03:25 05/19/18 08:00 05/19/18 08:29 Temperature 98.3 F Pulse Rate 84 91 H Respiratory Rate 18 17 18 Blood Pressure 93/51 L Pulse Oximetry 93 L Intake & Output 05/18/18 05/19/18 05/19/18 18:59 06:59 18:59 Intake Total 1000 / 1000 1400 / 1400 Output Total 80 / 80 966 / 966 Balance 920 / 920 434 / 434 Weight 78.5 kg Intake: IV 1000 / 1000 1000 / 1000 NS + KCl 20 mEq Inj 1,000 ML @ 1000 / 1000 1000 / 1000 100 mls/hr IV.CONT .Q10H AMBROCIO Rx #:[id number] Oral 400 / 400 Output: Urine 6 / 6 Gastric Drainage 900 / 900 Right Nare 900 / 900 Wound Drainage 80 / 80 60 / 60 Left Lower Abdomen 80 / 80 60 / 60 Other: Date of Last Bowel Movement 05/17/18 05/18/18 # Bowel Movements 10 Narrative: GENERAL: Well-developed, well-nourished, elderly female in no apparent distress SKIN: Warm and dry. HEAD: Atraumatic. Normocephalic. EYES: Pupils equal and round. No scleral icterus. No injection or drainage. ENT: No nasal bleeding or discharge. Mucous membranes pink and moist. NECK: Trachea midline. No JVD. CARDIOVASCULAR: Regular rate and rhythm. RESPIRATORY: No accessory muscle use. Clear to auscultation. Breath sounds equal bilaterally. GASTROINTESTINAL: Abdomen with slight distention, and slight tenderness. Hepatic and splenic margins not palpable. Left upper abdominal incision with Steri-Strips dry and intact, RG with serosanguineous drainage, right inguinal incision clean dry and intact with mild bruising. NG tube in place to low intermittent suction MUSCULOSKELETAL: Extremities without clubbing, cyanosis, or edema. No obvious deformities. NEUROLOGICAL: Awake and alert and oriented x3. No obvious cranial nerve deficits. Motor grossly within normal limits. Generalized weakness moving all 4 extremities normal speech. PSYCHIATRIC: Appropriate mood and affect; insight and judgment normal. - Urinary Catheter Management straight cath 16fr Cath placed during this visit: no Results - Labs CBC & Chem 7: 05/18/18 05:17 05/18/18 05:17 - Imaging Impressions Abdomen X-Ray 05/18/18 00:00 CONCLUSION: Significant air remains within the stomach although there is clearly less small bowel air today than it was on the 26th Abdomen X-Ray 05/19/18 08:00 CONCLUSION: There has been interval placement of a nasogastric tube with decompression of the stomach. No findings to indicate a bowel obstruction identified. There is gas and stool identified throughout the small bowel and colon. - Procedures 05/15/2018 PREOPERATIVE DIAGNOSIS: Small bowel obstruction. POSTOPERATIVE DIAGNOSIS: Small-bowel obstruction from incarceration of right inguinal hernia. SURGEON: Eliseo Souza MD PROCEDURE PERFORMED: 1. Diagnostic laparoscopy. 2. Laparoscopic reduction of inguinal hernia. 3. Open right inguinal hernia repair with mesh, 3 x 6 atrium mesh. FIBERGLASS QUALITY TECHNICIAN: Trenton De Leon MD. ANESTHESIA: GETA. IV FLUIDS: See anesthesia sheet. ESTIMATED BLOOD LOSS: 10 mL. DRAINS: A 10-[place] flat Ranjit drain. WOUND CLASSIFICATION: Clean. SPECIMENS: None. FINDINGS: Large right inguinal hernia, indurated ischemic mesentery. Bowel appeared viable, but somewhat hemorrhagic to the small bowel causing bowel obstruction with dilated proximal loops and decompressed distal loops. INDICATIONS FOR PROCEDURE: The patient is a 67-year-old female who presented with acute onset of abdominal pain and abdominal distention. The patient with a history of Aaron fundoplication and unable to burp or vomit. She had CT scan workup showing a significantly dilated bowel loops with decompressed distal bowel loops. Right inguinal hernia that did not contain any small bowel on CT scan and a small bowel follow through showing non-passes of contrast at 4-1/2 hours. Decision was made for diagnostic laparoscopy, laparoscopic lysis of adhesion with possible bowel resection. DETAILS OF PROCEDURE: The patient was taken to the operating suite, placed in supine position. She was prepped and draped in the usual sterile fashion after induction of general endotracheal anesthesia. Brief timeout done stating correct patient, procedure, surgical site, and all were in agreement with this. Attention first directed to the left upper quadrant where local anesthetic was injected. A small stab jenna incision was made with a 15 blade. A Visiport 5 mm Optiview port was done to enter the abdomen safely. Abdomen insufflated to 15 mm pneumoperitoneum. On cursory inspection, no evidence of injury. The abdomen was noted to be markedly dilated. There was noted to be serosanguineous fluid in the dependent pelvis. Further, it was noted a right inguinal hernia with bowel mesentery contained within creating bowel obstruction. Two other ports placed in the left lower quadrant and left mid quadrant. The mesentery was reduced from the hernia. Hernia was somewhat large containing sac. The bowel noted to be viable, but somewhat hemorrhagic and noted to be patent. The mesentery was somewhat indurated and also somewhat hemorrhagic, but also noted to be relatively viable. Decision at this point was to not resect the bowel due to it looking viable and pink and placing a small drain at the port incision. 2-0 nylon used to secure this, which was placed in the dependent pelvis and near questionable bowel. Then, decision was made to repair the right inguinal hernia. This was done in an open technique. The patient had a previous tummy tuck scar. Incision was done along the tummy tuck scar, 5 cm. The tummy tuck created adhesion and distortion of anatomy; however, #15 blade used followed by Bovie cautery to incise along the scar of the tummy tuck incision. This was done down to the external oblique fascia. Stab jenna was made with a 15 blade in the direction of the external oblique fibers. Metzenbaum scissors were used to run towards the external ring and then proximal. Hemostats placed on the external oblique fascia. Ilioinguinal nerve was cut and removed. Large deep hernia defect noted. The inguinal floor was somewhat thin. A 3 x 6 atrium mesh was obtained. The pubic tubercle was palpated. 0 Ethibonds were used to secure the atrial mesh to the pubic tubercle along the shelving edge and conjoined tendon. The mesh noticed to sit flat and was well secured. The external oblique was then repaired with a 2-0 Vicryl. Local anesthetic injected. The external ring was recreated. Hemostasis was obtained. Brandie's fascia was closed with 2-0 Vicryl. The subcutaneous 3-0 Vicryl suture was done followed by a 4-0 Monocryl subcuticular suture. The hernia defect noted to be intact. Abdomen then desufflated. Ports were removed. The ports were closed with 4-0 Monocryl. Sterile dressing was placed. The patient tolerated procedure well. No intraoperative complications. All lap and instrument counts were correct at the end of the procedure. The patient was extubated and taken to the PACU. MD MARQUISE Jacobson/venus , 11:20 PM Assessment and Plan - Assessment (1) COPD (chronic obstructive pulmonary disease) Code(s): J44.9 - Chronic obstructive pulmonary disease, unspecified Status: Acute (2) Hypertension Code(s): I10 - Essential (primary) hypertension Status: Acute (3) Hypothyroidism Code(s): E03.9 - Hypothyroidism, unspecified Status: Acute (4) Small bowel obstruction Code(s): K56.609 - Unspecified intestinal obstruction, unspecified as to partial versus complete obstruction Status: Acute (5) Incarcerated right inguinal hernia Code(s): K40.30 - Unilateral inguinal hernia, with obstruction, without gangrene , not specified as recurrent Status: Acute - Plan This patient is a 67 y/o female with history of hypertension, COPD , hernia repair, who presented to ER with constipation. She says that she hasn't had any bowel movement since last week and she couldn't pass any gas. Came into the emergency room for evaluation and treatment Small bowel obstruction related to incarceration of right inguinal hernia Unspecified intestinal obstruction, unspecified as to partial versus complete obstruction, Acute Incarcerated right inguinal hernia Unilateral inguinal hernia, with obstruction, without gangrene, not specified as recurrent , Acute -Status post diagnostic laparoscopy/laparoscopic reduction of inguinal hernia/ open right inguinal hernia repair with mesh with Dr. Souza -NG tube to low intermittent suction for distended stomach -Continue IV fluid -Incision care, RG drain management -Pain medication with bowel regimen -continue Reglan, add Zofran prn for nausea -General Surgeon Dr Souza, following: Plan for another surgery/SB resection if no improvement -Restart on stool softener per Dr. Souza recommendation Hx PE, per patient previously on Xarelto for years, finished with treatment -start on Lovenox for DVT prophylaxis , Gen. Surgeon agreed -increase ambulation COPD (chronic obstructive pulmonary disease) Chronic obstructive pulmonary disease, unspecified, Acute -No shortness of breath, no wheezes -Continue DuoNeb treatment as needed -Monitor respiratory status Hypertension Essential (primary) hypertension , Acute -Blood pressure controlled -Continue amlodipine, Coreg -Monitor blood pressure Hypothyroidism -Continue levothyroxine -Monitor TSH and T4 Hypokalemia Likely due to GI losses -Replaced as needed -Monitor BMP DVT prophylaxis: SCD, start Lovenox Code Status: full code Discussed Condition With: Patient, nurse Discussed with Dr. Souza
[2018-05-19] MEDS: Budesonide-Formoterol 160/4.5 MCG 6 GM Inhaler INH SCH ×2 (12:12→20:42)
[2018-05-19 17:16] LABS: Baso % (Auto) 0.1 % (0.0-2.0); Hematocrit 28.9 % (35.0-46.0); Hemoglobin 10.2 gm/dL (11.6-15.3); Lymph # (Auto) 0.8 th/mm3 (1.0-4.8); Lymph % (Auto) 10.3 % (9.0-44.0); Mean Corpuscular HGB Conc 35.4 % (32.0-36.0); Mean Corpuscular Hemoglobin 32.6 pg (27.0-34.0); Mean Platelet Volume 8.5 fL (7.0-11.0); Mono # (Auto) 1.1 th/mm3 (0.0-0.9); Mono % (Auto) 14.9 % (0.0-8.0); Neut # (Auto) 5.5 th/mm3 (1.8-7.7); Neut % (Auto) 74.7 % (16.0-70.0); Platelet Count 315 th/mm3 (150-450); Red Blood Count 3.14 mil/mm3 (4.00-5.30); Red Cell Distribution Width 14.1 % (11.6-17.2); White Blood Count 7.4 th/mm3 (4.0-11.0)
[2018-05-19 17:43] LABS: Anion Gap 11 meq/L (5-15); Blood Urea Nitrogen 2 mg/dL (7-18); Calcium 7.2 mg/dL (8.5-10.1); Carbon Dioxide 17.9 meq/L (21.0-32.0); Chloride 116 meq/L (98-107); Glomerular Filtration Rate Greater Than 89 mL/min (>89); Glucose,Random 77 mg/dL (74-106); Magnesium 1.7 mg/dL (1.5-2.5); Potassium 3.3 meq/L (3.5-5.1); Sodium 145 meq/L (136-145)
[2018-05-19] MEDS: LORazepam 1 MG Tablet PO PRN (20:41)
[2018-05-19] MEDS: Senna/Docusate Sodium 8.6/50 MG Tablet PO SCH (20:41)
[2018-05-19] MEDS: Phenol 1.4% 180 ML Spray Bottle OROPHARYNG PRN (20:53)
[2018-05-20] MEDS: Morphine Sulfate Inj 2 MG/ML Vial IV.PUSH PRN ×5 (05:53→22:33)
[2018-05-20 08:09] LABS: Baso % (Auto) 0.1 % (0.0-2.0); Hematocrit 27.9 % (35.0-46.0); Hemoglobin 9.9 gm/dL (11.6-15.3); Lymph # (Auto) 0.9 th/mm3 (1.0-4.8); Lymph % (Auto) 12.7 % (9.0-44.0); Mean Corpuscular HGB Conc 35.6 % (32.0-36.0); Mean Corpuscular Hemoglobin 32.9 pg (27.0-34.0); Mean Corpuscular Volume 92.4 fL (80.0-100.0); Mean Platelet Volume 8.7 fL (7.0-11.0); Mono # (Auto) 1.1 th/mm3 (0.0-0.9); Mono % (Auto) 16.3 % (0.0-8.0); Neut # (Auto) 4.9 th/mm3 (1.8-7.7); Neut % (Auto) 70.9 % (16.0-70.0); Platelet Count 277 th/mm3 (150-450); Red Blood Count 3.02 mil/mm3 (4.00-5.30); Red Cell Distribution Width 14.1 % (11.6-17.2); White Blood Count 6.9 th/mm3 (4.0-11.0)
[2018-05-20 08:38] LABS: Anion Gap 11 meq/L (5-15); Calcium 6.8 mg/dL (8.5-10.1); Carbon Dioxide 19.6 meq/L (21.0-32.0); Chloride 113 meq/L (98-107); Glomerular Filtration Rate Greater Than 89 mL/min (>89); Glucose,Random 71 mg/dL (74-106); Magnesium 1.6 mg/dL (1.5-2.5); Potassium 3.3 meq/L (3.5-5.1); Sodium 144 meq/L (136-145)
[2018-05-20] MEDS: Senna/Docusate Sodium 8.6/50 MG Tablet PO SCH ×2 (08:45→21:09)
[2018-05-20] MEDS: Enoxaparin Inj 40 MG/0.4 ML Syringe SQ SCH (08:45)
[2018-05-20] MEDS: Carvedilol 12.5 MG Tablet PO SCH ×2 (08:45→21:06)
[2018-05-20] MEDS: Pantoprazole Sodium 20 MG DR Tablet PO SCH (08:45)
[2018-05-20] MEDS: Budesonide-Formoterol 160/4.5 MCG 6 GM Inhaler INH SCH ×2 (08:45→21:09)
[2018-05-20] MEDS: amLODIPine 5 MG Tablet PO SCH (08:45)
[2018-05-20 08:52] LABS: Total Protein 4.7 g/dL (6.4-8.2)
--- NOTE | 2018-05-20 11:36 | P.PNGS ---
Subjective Interval history: Resting in bed Feeling much better Has been OOB Physical Exam Vital signs: Vital Signs 05/19/18 12:00 05/19/18 13:36 05/19/18 16:00 Temperature 97.6 F 98.4 F Pulse Rate 94 H 91 H 92 H Respiratory Rate 17 18 17 Blood Pressure 113/58 L 122/72 Pulse Oximetry 97 97 05/19/18 19:16 05/19/18 20:00 05/20/18 00:00 Temperature 98.1 F 97.9 F Pulse Rate 88 101 H 93 H Respiratory Rate 17 20 18 Blood Pressure 114/64 104/63 Pulse Oximetry 95 94 L 05/20/18 04:23 05/20/18 08:00 05/20/18 08:07 Temperature 97.6 F Pulse Rate 85 98 H Respiratory Rate 18 15 16 Blood Pressure 96/61 L Pulse Oximetry 94 L Intake & Output 05/19/18 05/20/18 05/20/18 18:59 06:59 18:59 Intake Total 1000 / 1000 1500 / 1500 600 / 600 Output Total 115 / 115 1080 / 1080 Balance 885 / 885 420 / 420 600 / 600 Weight 77 kg Intake: IV 1000 / 1000 1500 / 1500 600 / 600 NS + KCl 20 mEq Inj 1,000 ML @ 1000 / 1000 1500 / 1500 600 / 600 100 mls/hr IV.CONT .Q10H [facility]BROCIO Rx #:[id number] Output: Gastric Drainage 100 / 100 1000 / 1000 Right Nare 100 / 100 1000 / 1000 Wound Drainage 15 / 15 80 / 80 Left Lower Abdomen 15 / 15 80 / 80 Other: # Voids 2 Date of Last Bowel Movement 05/19/18 05/20/18 Narrative: Alert and awake NGT to LIWS Abd: soft; non tender; RG with serous drainage; RIGHT groin incision c/d/i - Urinary Catheter Management straight cath 16fr Cath placed during this visit: no Results - Labs 05/23/18 08:12 05/24/18 06:38 Laboratory Results - last 24 hr 05/19/18 05/19/18 05/20/18 16:20 16:20 06:35 WBC 7.4 6.9 RBC 3.14 L 3.02 L Hgb 10.2 L 9.9 L Hct 28.9 L 27.9 L MCV 92.0 92.4 MCH 32.6 32.9 MCHC 35.4 35.6 RDW 14.1 14.1 Plt Count 315 277 MPV 8.5 8.7 Neut % (Auto) 74.7 H 70.9 H Lymph % (Auto) 10.3 12.7 Johnson % (Auto) 14.9 H 16.3 H Eos % (Auto) 0.0 0.0 Baso % (Auto) 0.1 0.1 Neut # (Auto) 5.5 4.9 Lymph # (Auto) 0.8 L 0.9 L Johnson # (Auto) 1.1 H 1.1 H Eos # (Auto) 0.0 0.0 Baso # (Auto) 0.0 0.0 WBC Differential . . Differential Comment Auto diff final Auto diff final Sodium 145 Potassium 3.3 L Chloride 116 H Carbon Dioxide 17.9 L Anion Gap 11 BUN 2 L Creatinine 0.31 L Estimated GFR Greater than 89 Random Glucose 77 Calcium 7.2 L* Prot Corrected Calcium 8.3 L Magnesium 1.7 Total Protein 5.0 L D 05/20/18 07:05 WBC RBC Hgb Hct MCV MCH MCHC RDW Plt Count MPV Neut % (Auto) Lymph % (Auto) Johnson % (Auto) Eos % (Auto) Baso % (Auto) Neut # (Auto) Lymph # (Auto) Johnson # (Auto) Eos # (Auto) Baso # (Auto) WBC Differential Differential Comment Sodium 144 Potassium 3.3 L Chloride 113 H Carbon Dioxide 19.6 L Anion Gap 11 BUN Less than 1 L Creatinine 0.33 L Estimated GFR Greater than 89 Random Glucose 71 L Calcium 6.8 L* Prot Corrected Calcium 8.1 L Magnesium 1.6 Total Protein 4.7 L - Imaging Imaging: ITS Impressions Abdomen/Pelvis CT 05/12/18 20:18 CONCLUSION: 1. CT findings of a small bowel obstruction with a transition identified in the right lateral abdomen in the region of the terminal ileum. The distal terminal ileum is completely decompressed. 2. Right inguinal hernia measuring 5 cm in diameter again contains fat and fluid. It also appears to contain the right-sided dome or urachus of the urinary bladder. 3. Small moderate-sized hiatal hernia. Small Bowel X-Ray 05/14/18 00:00 CONCLUSION: Small bowel obstruction. Abdomen X-Ray 05/19/18 08:00 CONCLUSION: There has been interval placement of a nasogastric tube with decompression of the stomach. No findings to indicate a bowel obstruction identified. There is gas and stool identified throughout the small bowel and colon. Assessment and Plan - Assessment (1) Incarcerated right inguinal hernia Code(s): K40.30 - Unilateral inguinal hernia, with obstruction, without gangrene , not specified as recurrent Status: Acute - Plan 67 year old female s/p dx lap; open RIGHT inguinal hernia repair; RG drain placement -Continue NGT to LIWS for today -Will consider SBFT tomorrow -OOB and mobilize -Optimize medical management -Discussed with RAMÓN Tafoya - Attending Attestation patient seen at bedside feels better check sbft tomorrow ng sxn The exam, history, and the medical decision-making described in the above note were completed with the assistance of the mid-level provider. I reviewed and agree with the findings presented. I attest that I had a [id number] encounter with the patient on the same day, and personally performed and documented my assessment and findings in the medical record.
--- NOTE | 2018-05-20 14:55 | P.PNIM ---
Subjective Interval history: Follow-up small bowel obstruction, status post diagnostic lap with right inguinal hernia repair, abdominal pain, nausea, hypertension, COPD. Patient seen and examined, laying in bed, still complaining of some nausea stated most of the time when taking pain medication. Patient denies any vomiting pain is about diarrhea stated everything to void or urinate to some stool coming out. Stated abdominal pain is a little better not much distention however feels like gas/bloated, passing small clots. NG tube in place. Patient denies any headache or dizziness denies any chest pain or shortness of breath. Patient denies any fever or chills. Discussed surgeons plan to do another surgery if symptoms not improved. Physical Exam Vital signs: Vital Signs 05/19/18 16:00 05/19/18 19:16 05/19/18 20:00 Temperature 98.4 F 98.1 F Pulse Rate 92 H 88 101 H Respiratory Rate 17 17 20 Blood Pressure 122/72 114/64 Pulse Oximetry 97 95 05/20/18 00:00 05/20/18 04:23 05/20/18 08:00 Temperature 97.9 F 97.6 F Pulse Rate 93 H 85 Respiratory Rate 18 18 15 Blood Pressure 104/63 96/61 L Pulse Oximetry 94 L 94 L 05/20/18 08:07 05/20/18 12:00 Temperature 98 F Pulse Rate 98 H 88 Respiratory Rate 16 14 Blood Pressure 112/64 Pulse Oximetry 94 L Intake & Output 05/19/18 05/20/18 05/20/18 18:59 06:59 18:59 Intake Total 1000 / 1000 1500 / 1500 600 / 600 Output Total 115 / 115 1080 / 1080 Balance 885 / 885 420 / 420 600 / 600 Weight 77 kg Intake: IV 1000 / 1000 1500 / 1500 600 / 600 NS + KCl 20 mEq Inj 1,000 ML @ 1000 / 1000 1500 / 1500 600 / 600 100 mls/hr IV.CONT .Q10H AMBROCIO Rx #:[id number] Output: Gastric Drainage 100 / 100 1000 / 1000 Right Nare 100 / 100 1000 / 1000 Wound Drainage 15 / 15 80 / 80 Left Lower Abdomen 15 / 15 80 / 80 Other: # Voids 2 Date of Last Bowel Movement 05/19/18 05/20/18 Narrative: GENERAL: Well-developed, well-nourished, elderly female in no apparent distress SKIN: Warm and dry. HEAD: Atraumatic. Normocephalic. EYES: Pupils equal and round. No scleral icterus. No injection or drainage. ENT: No nasal bleeding or discharge. Mucous membranes pink and moist. NECK: Trachea midline. No JVD. CARDIOVASCULAR: Regular rate and rhythm. RESPIRATORY: No accessory muscle use. Clear to auscultation. Breath sounds equal bilaterally. GASTROINTESTINAL: Abdomen with slight distention, and slight tenderness. Hepatic and splenic margins not palpable. Multiple left abdominal incisions with Steri-Strips dry and intact, RG with serosanguineous drainage, right inguinal incision clean, dry and intact with mild bruising. NG tube in place to low intermittent suction MUSCULOSKELETAL: Extremities without clubbing, cyanosis, or edema. No obvious deformities. NEUROLOGICAL: Awake and alert and oriented x3. No obvious cranial nerve deficits. Motor grossly within normal limits. Generalized weakness moving all 4 extremities normal speech. PSYCHIATRIC: Appropriate mood and affect; insight and judgment normal. - Urinary Catheter Management straight cath 16fr Cath placed during this visit: no Results - Labs CBC & Chem 7: 05/20/18 06:35 05/20/18 07:05 Laboratory Results - last 24 hr 05/19/18 05/19/18 05/20/18 16:20 16:20 06:35 WBC 7.4 6.9 RBC 3.14 L 3.02 L Hgb 10.2 L 9.9 L Hct 28.9 L 27.9 L MCV 92.0 92.4 MCH 32.6 32.9 MCHC 35.4 35.6 RDW 14.1 14.1 Plt Count 315 277 MPV 8.5 8.7 Neut % (Auto) 74.7 H 70.9 H Lymph % (Auto) 10.3 12.7 Sharp % (Auto) 14.9 H 16.3 H Eos % (Auto) 0.0 0.0 Baso % (Auto) 0.1 0.1 Neut # (Auto) 5.5 4.9 Lymph # (Auto) 0.8 L 0.9 L Sharp # (Auto) 1.1 H 1.1 H Eos # (Auto) 0.0 0.0 Baso # (Auto) 0.0 0.0 WBC Differential . . Differential Comment Auto diff final Auto diff final Sodium 145 Potassium 3.3 L Chloride 116 H Carbon Dioxide 17.9 L Anion Gap 11 BUN 2 L Creatinine 0.31 L Estimated GFR Greater than 89 Random Glucose 77 Calcium 7.2 L* Prot Corrected Calcium 8.3 L Magnesium 1.7 Total Protein 5.0 L D 05/20/18 07:05 WBC RBC Hgb Hct MCV MCH MCHC RDW Plt Count MPV Neut % (Auto) Lymph % (Auto) Sharp % (Auto) Eos % (Auto) Baso % (Auto) Neut # (Auto) Lymph # (Auto) Sharp # (Auto) Eos # (Auto) Baso # (Auto) WBC Differential Differential Comment Sodium 144 Potassium 3.3 L Chloride 113 H Carbon Dioxide 19.6 L Anion Gap 11 BUN Less than 1 L Creatinine 0.33 L Estimated GFR Greater than 89 Random Glucose 71 L Calcium 6.8 L* Prot Corrected Calcium 8.1 L Magnesium 1.6 Total Protein 4.7 L - Procedures 05/15/2018 PREOPERATIVE DIAGNOSIS: Small bowel obstruction. POSTOPERATIVE DIAGNOSIS: Small-bowel obstruction from incarceration of right inguinal hernia. SURGEON: Eliseo Souza MD PROCEDURE PERFORMED: 1. Diagnostic laparoscopy. 2. Laparoscopic reduction of inguinal hernia. 3. Open right inguinal hernia repair with mesh, 3 x 6 atrium mesh. MANAGER PRINTING: Trenton De Leon MD. ANESTHESIA: GETA. IV FLUIDS: See anesthesia sheet. ESTIMATED BLOOD LOSS: 10 mL. DRAINS: A 10-[place] flat Ranjit drain. WOUND CLASSIFICATION: Clean. SPECIMENS: None. FINDINGS: Large right inguinal hernia, indurated ischemic mesentery. Bowel appeared viable, but somewhat hemorrhagic to the small bowel causing bowel obstruction with dilated proximal loops and decompressed distal loops. INDICATIONS FOR PROCEDURE: The patient is a 67-year-old female who presented with acute onset of abdominal pain and abdominal distention. The patient with a history of Aaron fundoplication and unable to burp or vomit. She had CT scan workup showing a significantly dilated bowel loops with decompressed distal bowel loops. Right inguinal hernia that did not contain any small bowel on CT scan and a small bowel follow through showing non-passes of contrast at 4-1/2 hours. Decision was made for diagnostic laparoscopy, laparoscopic lysis of adhesion with possible bowel resection. DETAILS OF PROCEDURE: The patient was taken to the operating suite, placed in supine position. She was prepped and draped in the usual sterile fashion after induction of general endotracheal anesthesia. Brief timeout done stating correct patient, procedure, surgical site, and all were in agreement with this. Attention first directed to the left upper quadrant where local anesthetic was injected. A small stab jenna incision was made with a 15 blade. A Visiport 5 mm Optiview port was done to enter the abdomen safely. Abdomen insufflated to 15 mm pneumoperitoneum. On cursory inspection, no evidence of injury. The abdomen was noted to be markedly dilated. There was noted to be serosanguineous fluid in the dependent pelvis. Further, it was noted a right inguinal hernia with bowel mesentery contained within creating bowel obstruction. Two other ports placed in the left lower quadrant and left mid quadrant. The mesentery was reduced from the hernia. Hernia was somewhat large containing sac. The bowel noted to be viable, but somewhat hemorrhagic and noted to be patent. The mesentery was somewhat indurated and also somewhat hemorrhagic, but also noted to be relatively viable. Decision at this point was to not resect the bowel due to it looking viable and pink and placing a small drain at the port incision. 2-0 nylon used to secure this, which was placed in the dependent pelvis and near questionable bowel. Then, decision was made to repair the right inguinal hernia. This was done in an open technique. The patient had a previous tummy tuck scar. Incision was done along the tummy tuck scar, 5 cm. The tummy tuck created adhesion and distortion of anatomy; however, #15 blade used followed by Bovie cautery to incise along the scar of the tummy tuck incision. This was done down to the external oblique fascia. Stab jenna was made with a 15 blade in the direction of the external oblique fibers. Metzenbaum scissors were used to run towards the external ring and then proximal. Hemostats placed on the external oblique fascia. Ilioinguinal nerve was cut and removed. Large deep hernia defect noted. The inguinal floor was somewhat thin. A 3 x 6 atrium mesh was obtained. The pubic tubercle was palpated. 0 Ethibonds were used to secure the atrial mesh to the pubic tubercle along the shelving edge and conjoined tendon. The mesh noticed to sit flat and was well secured. The external oblique was then repaired with a 2-0 Vicryl. Local anesthetic injected. The external ring was recreated. Hemostasis was obtained. Brandie's fascia was closed with 2-0 Vicryl. The subcutaneous 3-0 Vicryl suture was done followed by a 4-0 Monocryl subcuticular suture. The hernia defect noted to be intact. Abdomen then desufflated. Ports were removed. The ports were closed with 4-0 Monocryl. Sterile dressing was placed. The patient tolerated procedure well. No intraoperative complications. All lap and instrument counts were correct at the end of the procedure. The patient was extubated and taken to the PACU. MD MARQUISE Jacobson/venus , 11:20 PM Assessment and Plan - Assessment (1) COPD (chronic obstructive pulmonary disease) Code(s): J44.9 - Chronic obstructive pulmonary disease, unspecified Status: Acute (2) Hypertension Code(s): I10 - Essential (primary) hypertension Status: Acute (3) Hypothyroidism Code(s): E03.9 - Hypothyroidism, unspecified Status: Acute (4) Small bowel obstruction Code(s): K56.609 - Unspecified intestinal obstruction, unspecified as to partial versus complete obstruction Status: Acute (5) Incarcerated right inguinal hernia Code(s): K40.30 - Unilateral inguinal hernia, with obstruction, without gangrene , not specified as recurrent Status: Acute - Plan This patient is a 67 y/o female with history of hypertension, COPD , hernia repair, who presented to ER with constipation. She says that she hasn't had any bowel movement since last week and she couldn't pass any gas. Came into the emergency room for evaluation and treatment Small bowel obstruction related to incarceration of right inguinal hernia Unspecified intestinal obstruction, unspecified as to partial versus complete obstruction, Acute Incarcerated right inguinal hernia Unilateral inguinal hernia, with obstruction, without gangrene, not specified as recurrent , Acute -Status post diagnostic laparoscopy/laparoscopic reduction of inguinal hernia/ open right inguinal hernia repair with mesh with Dr. Souza -NG tube to low intermittent suction for distended stomach -Continue IV fluid -Incision care, RG drain management -Pain medication with bowel regimen -continue Reglan, add Zofran prn for nausea -General Surgeon Dr Souza, following: Plan for another surgery/SB resection if no improvement -Restart on stool softener per Dr. Souza recommendation -still have having abdominal discomfort, nausea, no vomiting, with diarrhea/ loose stools Hx PE, per patient previously on Xarelto for years, finished with treatment -continue on Lovenox for DVT prophylaxis , Gen. Surgeon agreed -increase ambulation COPD (chronic obstructive pulmonary disease) Chronic obstructive pulmonary disease, unspecified, Acute -No shortness of breath, no wheezes -Continue DuoNeb treatment as needed -Monitor respiratory status Hypertension Essential (primary) hypertension , Acute -Blood pressure controlled, sin the low side -Continue Coreg, decreas amlodipine dose -Monitor blood pressure Hypothyroidism -Continue levothyroxine -Monitor TSH and T4 Hypokalemia Likely due to GI losses -K 3.3 today -Replaced with KCL 20 meq now and daily -Monitor BMP DVT prophylaxis: SCD, continue Lovenox Code Status: full code Discussed Condition With: patient, nurse and MDR
[2018-05-20] MEDS ORDERED: amLODIPine 5 MG Tablet PO SCH (15:04)
[2018-05-20] MEDS ORDERED: Potassium Chlor 20 mEq Premix 20 MEQ/100 ML PIGGYBACK IV.SIG ONE (15:30)
[2018-05-20] MEDS: LORazepam 1 MG Tablet PO PRN (21:06)
[2018-05-21] MEDS: Morphine Sulfate Inj 2 MG/ML Vial IV.PUSH PRN ×5 (02:52→22:27)
[2018-05-21 08:32] LABS: Baso % (Auto) 0.3 % (0.0-2.0); Hematocrit 28.9 % (35.0-46.0); Hemoglobin 10.4 gm/dL (11.6-15.3); Lymph # (Auto) 0.9 th/mm3 (1.0-4.8); Lymph % (Auto) 13.5 % (9.0-44.0); Mean Corpuscular Hemoglobin 33.3 pg (27.0-34.0); Mean Corpuscular Volume 92.2 fL (80.0-100.0); Mean Platelet Volume 8.5 fL (7.0-11.0); Mono # (Auto) 1.1 th/mm3 (0.0-0.9); Mono % (Auto) 16.5 % (0.0-8.0); Neut # (Auto) 4.7 th/mm3 (1.8-7.7); Neut % (Auto) 69.7 % (16.0-70.0); Platelet Count 285 th/mm3 (150-450); Red Blood Count 3.13 mil/mm3 (4.00-5.30); Red Cell Distribution Width 13.8 % (11.6-17.2); White Blood Count 6.7 th/mm3 (4.0-11.0)
[2018-05-21 08:43] LABS: Mean Corpuscular HGB Conc 36.1 % (32.0-36.0)
[2018-05-21 08:55] LABS: Anion Gap 13 meq/L (5-15); Calcium 6.9 mg/dL (8.5-10.1); Carbon Dioxide 20.3 meq/L (21.0-32.0); Chloride 108 meq/L (98-107); Glomerular Filtration Rate Greater Than 89 mL/min (>89); Glucose,Random 67 mg/dL (74-106); Potassium 3.4 meq/L (3.5-5.1); Sodium 141 meq/L (136-145)
[2018-05-21 09:11] LABS: Total Protein 4.8 g/dL (6.4-8.2)
--- NOTE | 2018-05-21 09:40 | P.PNGS ---
Subjective Interval history: Clinically improved C/o LEFT sided abdominal pain Physical Exam Vital signs: Vital Signs 05/20/18 12:00 05/20/18 16:00 05/20/18 20:00 Temperature 98 F 98 F 97.9 F Pulse Rate 88 88 84 Respiratory Rate 14 15 17 Blood Pressure 112/64 115/70 130/73 Pulse Oximetry 94 L 94 L 95 05/21/18 00:00 05/21/18 00:40 05/21/18 08:00 Temperature 98.6 F 98.5 F Pulse Rate 91 H 88 Respiratory Rate 17 19 14 Blood Pressure 105/61 119/69 Pulse Oximetry 93 L 93 L Intake & Output 05/20/18 05/21/18 05/21/18 18:59 06:59 18:59 Intake Total 2200 / 2200 1300 / 1300 Output Total 250 / 250 300 / 300 Balance 1950 / 1950 1300 / 1300 -300 / -300 Weight 77.5 kg Intake: IV 2200 / 2200 1100 / 1100 NS + KCl 20 mEq Inj 1,000 ML @ 2200 / 2200 1000 / 1000 100 mls/hr IV.CONT .Q10H AMBROCIO Rx #:[id number] KCl 20 mEq Premix Inj 20 meq In 100 / 100 100 ml @ 50 mls/hr IV.SIG ONCE ONE Rx#:[id number] Oral 200 / 200 Output: Gastric Drainage 250 / 250 300 / 300 Right Nare 250 / 250 300 / 300 Wound Drainage 0 / 0 Left Lower Abdomen 0 / 0 Other: # Voids 6 6 Date of Last Bowel Movement 05/20/18 05/20/18 Narrative: Alert and awake Abd: Soft; LEFT sided abdominal tenderness with palpation; RG with minimal serous drainage NGT with decreased output - Urinary Catheter Management straight cath 16fr Cath placed during this visit: no Results - Labs 05/23/18 08:12 05/25/18 06:45 Laboratory Results - last 24 hr 05/21/18 05/21/18 06:30 06:30 WBC 6.7 RBC 3.13 L Hgb 10.4 L Hct 28.9 L MCV 92.2 MCH 33.3 MCHC 36.1 H RDW 13.8 Plt Count 285 MPV 8.5 Prelim Diff (Auto) Slide review pending Neut % (Auto) 69.7 Lymph % (Auto) 13.5 Hinds % (Auto) 16.5 H Eos % (Auto) 0.0 Baso % (Auto) 0.3 Neut # (Auto) 4.7 Lymph # (Auto) 0.9 L Hinds # (Auto) 1.1 H Eos # (Auto) 0.0 Baso # (Auto) 0.0 Differential Comment . Sodium 141 Potassium 3.4 L Chloride 108 H Carbon Dioxide 20.3 L Anion Gap 13 BUN Less than 1 L Creatinine 0.25 L Estimated GFR Greater than 89 Random Glucose 67 L Calcium 6.9 L* Prot Corrected Calcium 8.1 L Total Protein 4.8 L - Imaging Imaging: ITS Impressions Abdomen/Pelvis CT 05/12/18 20:18 CONCLUSION: 1. CT findings of a small bowel obstruction with a transition identified in the right lateral abdomen in the region of the terminal ileum. The distal terminal ileum is completely decompressed. 2. Right inguinal hernia measuring 5 cm in diameter again contains fat and fluid. It also appears to contain the right-sided dome or urachus of the urinary bladder. 3. Small moderate-sized hiatal hernia. Small Bowel X-Ray 05/14/18 00:00 CONCLUSION: Small bowel obstruction. Abdomen X-Ray 05/19/18 08:00 CONCLUSION: There has been interval placement of a nasogastric tube with decompression of the stomach. No findings to indicate a bowel obstruction identified. There is gas and stool identified throughout the small bowel and colon. Assessment and Plan - Assessment (1) Incarcerated right inguinal hernia Code(s): K40.30 - Unilateral inguinal hernia, with obstruction, without gangrene , not specified as recurrent Status: Acute - Plan 67 year old female s/p dx lap; open RIGHT inguinal hernia repair; RG drain placement -NGT output decreased -SBFT today -OOB and mobilize -Optimize medical management - Attending Attestation patient seen at bedside ng output less await sbft ileus The exam, history, and the medical decision-making described in the above note were completed with the assistance of the mid-level provider. I reviewed and agree with the findings presented. I attest that I had a [id number] encounter with the patient on the same day, and personally performed and documented my assessment and findings in the medical record.
--- NOTE | 2018-05-21 09:43 | P.DIET ---
Nutritional Evaluation Type of nutrition evaluation: initial Screening comments: NPO SCREEN. PT NPO x 3-Days Objective - Diagnosis Small Bowel Obstruction - Objective Diet Order: NPO Assessment Assessment: Pt is NPO x 3-Days. Please Consult RD if Needed. Recommendations: 1. Pt NPO x 3-Days 2. Please Consult RD if Needed
[2018-05-21 09:45] LABS: Lymphocytes 11 % (9-44); Metamyelocytes 2 % (0-1); Monocytes 10 % (0-8)
[2018-05-21 09:46] LABS: Platelet Estimate Normal (Normal); Platelet Morphology Normal (Normal)
[2018-05-21] MEDS: Carvedilol 12.5 MG Tablet PO SCH ×2 (10:14→20:31)
[2018-05-21] MEDS: Enoxaparin Inj 40 MG/0.4 ML Syringe SQ SCH (10:14)
[2018-05-21] MEDS: Pantoprazole Sodium 20 MG DR Tablet PO SCH (10:14)
[2018-05-21] MEDS: Budesonide-Formoterol 160/4.5 MCG 6 GM Inhaler INH SCH ×2 (10:18→20:33)
[2018-05-21] MEDS: Senna/Docusate Sodium 8.6/50 MG Tablet PO SCH ×2 (10:19→20:31)
[2018-05-21] MEDS ORDERED: Diatrizoate Meglum/Diatrizoate Sod Liq 120 ML Bottle (for RAD diag) NG/OG ONE (11:10)
--- NOTE | 2018-05-21 13:36 | FL ---
EXAM DATE: 05/21/2018 1:31 PM EDT AGE/SEX: 67 years / Female INDICATIONS: Obstruction, post op 1 week right inguinal hernia repair. CLINICAL DATA: This is the patient's subsequent encounter. Patient reports that signs and symptoms h ave been present for 1 week and indicates a pain score of 1/10. MEDICAL/SURGICAL HISTORY: . Chronic obstructive pulmonary disease. Hypertension. Hiatal hernia . section. Breast augmentation. Rt inguinal hernia repair. Hiatal hernia repair COMPARISON: [facility] – [place], [place], [facility] [place], 05/19/2018. . FLUORO TIME: 0 IMAGE COUNT: 13 CONTRAST: FINDINGS: Also GE junction. Contrast was administered to the nasogastric tube with free flow into the ascending colon. There is no constricting or obstructing lesions. There is no significant disparity between la rge and small bowel. Bowel caliber does change with peristalsis.. CONCLUSION: Negative for obstruction Electronically signed by: Rc Rodriguez MD 05/21/2018 1:34 PM EDT
[2018-05-21] MEDS: Phenol 1.4% 180 ML Spray Bottle OROPHARYNG PRN (14:10)
[2018-05-21] MEDS: Scopalamine 1.5 MG Patch T-DERMAL SCH (14:16)
--- NOTE | 2018-05-21 15:26 | P.PNIM ---
Subjective Interval history: Follow-up small bowel obstruction, status post diagnostic lap with right inguinal hernia repair, abdominal pain,abdominal distention, nausea, hypertension, COPD. Patient seen and examined, sitting at the side of the bed, just came back from GI procedure. Patient still complaints of abdominal pain right above the left incision site, complaints of nausea but no vomiting. Stool still loose. Patient denies any headache or dizziness, chest pain or SOB, denies any fever or chills. Patient requested for something to eat or drink other than ice chips. Patient requested for Jacinta bahman. Discussed will refer to the GI recommendation and order accordingly. Physical Exam Vital signs: Vital Signs 05/20/18 16:00 05/20/18 20:00 05/21/18 00:00 Temperature 98 F 97.9 F 98.6 F Pulse Rate 88 84 91 H Respiratory Rate 15 17 17 Blood Pressure 115/70 130/73 105/61 Pulse Oximetry 94 L 95 93 L 05/21/18 00:40 05/21/18 08:00 05/21/18 14:00 Temperature 98.5 F 97.2 F L Pulse Rate 88 99 H Respiratory Rate 19 14 15 Blood Pressure 119/69 99/58 L Pulse Oximetry 93 L 95 Intake & Output 05/20/18 05/21/18 05/21/18 18:59 06:59 18:59 Intake Total 2200 / 2200 1300 / 1300 Output Total 250 / 250 300 / 300 Balance 1950 / 1950 1300 / 1300 -300 / -300 Weight 77.5 kg Intake: IV 2200 / 2200 1100 / 1100 NS + KCl 20 mEq Inj 1,000 ML @ 2200 / 2200 1000 / 1000 100 mls/hr IV.CONT .Q10H AMBROCIO Rx #:[id number] KCl 20 mEq Premix Inj 20 meq In 100 / 100 100 ml @ 50 mls/hr IV.SIG ONCE ONE Rx#:[id number] Oral 200 / 200 Output: Gastric Drainage 250 / 250 300 / 300 Right Nare 250 / 250 300 / 300 Wound Drainage 0 / 0 Left Lower Abdomen 0 / 0 Other: # Voids 6 6 Date of Last Bowel Movement 05/20/18 05/20/18 Narrative: GENERAL: Well-developed, well-nourished, female in no apparent distress SKIN: Warm and dry. HEAD: Atraumatic. Normocephalic. EYES: Pupils equal and round. No scleral icterus. No injection or drainage. ENT: No nasal bleeding or discharge. Mucous membranes pink and moist. NECK: Trachea midline. No JVD. CARDIOVASCULAR: Regular rate and rhythm. RESPIRATORY: No accessory muscle use. Clear to auscultation. Breath sounds equal bilaterally. GASTROINTESTINAL: Abdomen soft, slight abdominal tenderness on palpation, nondistended. Hepatic and splenic margins not palpable. Multiple left abdominal incisions with Steri-Strips dry and intact, RG with serosanguineous drainage, right inguinal incision clean, dry and intact with mild bruising. NG tube in place to low intermittent suction with minimal output. MUSCULOSKELETAL: Extremities without clubbing, cyanosis, or edema. No obvious deformities. NEUROLOGICAL: Awake and alert. No obvious cranial nerve deficits. Motor grossly within normal limits. Generalized weakness with moving all 4 extremities. Normal speech. PSYCHIATRIC: Appropriate mood and affect; insight and judgment normal. - Urinary Catheter Management straight cath 16fr Cath placed during this visit: no Results - Labs CBC & Chem 7: 05/21/18 06:30 05/21/18 06:30 Laboratory Results - last 24 hr 05/21/18 05/21/18 06:30 06:30 WBC 6.7 RBC 3.13 L Hgb 10.4 L Hct 28.9 L MCV 92.2 MCH 33.3 MCHC 36.1 H RDW 13.8 Plt Count 285 MPV 8.5 Prelim Diff (Auto) Slide review pending Neut % (Auto) 69.7 Lymph % (Auto) 13.5 [place] % (Auto) 16.5 H Eos % (Auto) 0.0 Baso % (Auto) 0.3 Neut # (Auto) 4.7 Lymph # (Auto) 0.9 L [place] # (Auto) 1.1 H Eos # (Auto) 0.0 Baso # (Auto) 0.0 WBC Differential Manual diff final Seg Neuts % (Manual) 72 H Band Neuts % (Manual) 5 Lymphocytes % (Manual) 11 Monocytes % (Manual) 10 H Metamyelocytes % (Man) 2 H Abs Neuts (Manual) 5.3 Differential Comment . Platelet Estimate Normal Platelet Morphology Normal Sodium 141 Potassium 3.4 L Chloride 108 H Carbon Dioxide 20.3 L Anion Gap 13 BUN Less than 1 L Creatinine 0.25 L Estimated GFR Greater than 89 Random Glucose 67 L Calcium 6.9 L* Prot Corrected Calcium 8.1 L Total Protein 4.8 L - Imaging Impressions Small Bowel X-Ray 05/21/18 00:00 CONCLUSION: Negative for obstruction - Procedures 05/15/2018 PREOPERATIVE DIAGNOSIS: Small bowel obstruction. POSTOPERATIVE DIAGNOSIS: Small-bowel obstruction from incarceration of right inguinal hernia. SURGEON: Eliseo Souza MD PROCEDURE PERFORMED: 1. Diagnostic laparoscopy. 2. Laparoscopic reduction of inguinal hernia. 3. Open right inguinal hernia repair with mesh, 3 x 6 atrium mesh. CONCRETING SUPERVISOR: Trenton De Leon MD. ANESTHESIA: GETA. IV FLUIDS: See anesthesia sheet. ESTIMATED BLOOD LOSS: 10 mL. DRAINS: A 10-[place] flat Ranjit drain. WOUND CLASSIFICATION: Clean. SPECIMENS: None. FINDINGS: Large right inguinal hernia, indurated ischemic mesentery. Bowel appeared viable, but somewhat hemorrhagic to the small bowel causing bowel obstruction with dilated proximal loops and decompressed distal loops. INDICATIONS FOR PROCEDURE: The patient is a 67-year-old female who presented with acute onset of abdominal pain and abdominal distention. The patient with a history of Aaron fundoplication and unable to burp or vomit. She had CT scan workup showing a significantly dilated bowel loops with decompressed distal bowel loops. Right inguinal hernia that did not contain any small bowel on CT scan and a small bowel follow through showing non-passes of contrast at 4-1/2 hours. Decision was made for diagnostic laparoscopy, laparoscopic lysis of adhesion with possible bowel resection. DETAILS OF PROCEDURE: The patient was taken to the operating suite, placed in supine position. She was prepped and draped in the usual sterile fashion after induction of general endotracheal anesthesia. Brief timeout done stating correct patient, procedure, surgical site, and all were in agreement with this. Attention first directed to the left upper quadrant where local anesthetic was injected. A small stab jenna incision was made with a 15 blade. A Visiport 5 mm Optiview port was done to enter the abdomen safely. Abdomen insufflated to 15 mm pneumoperitoneum. On cursory inspection, no evidence of injury. The abdomen was noted to be markedly dilated. There was noted to be serosanguineous fluid in the dependent pelvis. Further, it was noted a right inguinal hernia with bowel mesentery contained within creating bowel obstruction. Two other ports placed in the left lower quadrant and left mid quadrant. The mesentery was reduced from the hernia. Hernia was somewhat large containing sac. The bowel noted to be viable, but somewhat hemorrhagic and noted to be patent. The mesentery was somewhat indurated and also somewhat hemorrhagic, but also noted to be relatively viable. Decision at this point was to not resect the bowel due to it looking viable and pink and placing a small drain at the port incision. 2-0 nylon used to secure this, which was placed in the dependent pelvis and near questionable bowel. Then, decision was made to repair the right inguinal hernia. This was done in an open technique. The patient had a previous tummy tuck scar. Incision was done along the tummy tuck scar, 5 cm. The tummy tuck created adhesion and distortion of anatomy; however, #15 blade used followed by Bovie cautery to incise along the scar of the tummy tuck incision. This was done down to the external oblique fascia. Stab jenna was made with a 15 blade in the direction of the external oblique fibers. Metzenbaum scissors were used to run towards the external ring and then proximal. Hemostats placed on the external oblique fascia. Ilioinguinal nerve was cut and removed. Large deep hernia defect noted. The inguinal floor was somewhat thin. A 3 x 6 atrium mesh was obtained. The pubic tubercle was palpated. 0 Ethibonds were used to secure the atrial mesh to the pubic tubercle along the shelving edge and conjoined tendon. The mesh noticed to sit flat and was well secured. The external oblique was then repaired with a 2-0 Vicryl. Local anesthetic injected. The external ring was recreated. Hemostasis was obtained. Brandie's fascia was closed with 2-0 Vicryl. The subcutaneous 3-0 Vicryl suture was done followed by a 4-0 Monocryl subcuticular suture. The hernia defect noted to be intact. Abdomen then desufflated. Ports were removed. The ports were closed with 4-0 Monocryl. Sterile dressing was placed. The patient tolerated procedure well. No intraoperative complications. All lap and instrument counts were correct at the end of the procedure. The patient was extubated and taken to the PACU. MD MARQUISE Jacobson/sv , 11:20 PM Assessment and Plan - Assessment (1) COPD (chronic obstructive pulmonary disease) Code(s): J44.9 - Chronic obstructive pulmonary disease, unspecified Status: Acute (2) Hypertension Code(s): I10 - Essential (primary) hypertension Status: Acute (3) Hypothyroidism Code(s): E03.9 - Hypothyroidism, unspecified Status: Acute (4) Small bowel obstruction Code(s): K56.609 - Unspecified intestinal obstruction, unspecified as to partial versus complete obstruction Status: Acute (5) Incarcerated right inguinal hernia Code(s): K40.30 - Unilateral inguinal hernia, with obstruction, without gangrene , not specified as recurrent Status: Acute - Plan This patient is a 67 y/o female with history of hypertension, COPD , hernia repair, who presented to ER with constipation. She says that she hasn't had any bowel movement since last week and she couldn't pass any gas. Came into the emergency room for evaluation and treatment Small bowel obstruction related to incarceration of right inguinal hernia Unspecified intestinal obstruction, unspecified as to partial versus complete obstruction, Acute Incarcerated right inguinal hernia Unilateral inguinal hernia, with obstruction, without gangrene, not specified as recurrent , Acute -Status post diagnostic laparoscopy/laparoscopic reduction of inguinal hernia/ open right inguinal hernia repair with mesh with Dr. Souza -NG tube to low intermittent suction for distended stomach -Continue IV fluid -Incision care, RG drain management -Pain medication with bowel regimen -continue Reglan, add Zofran prn for nausea -General Surgeon Dr Souza, following: Plan for another surgery/SB resection if no improvement -Restart on stool softener per Dr. Souza recommendation -still have having abdominal discomfort, some nausea, no vomiting, with diarrhea /loose stools -Small bowel follow through with GI: Recommended to clamp NG tube, start with liquid diet, if tolerates will DC NG tube in AM Hx PE, per patient previously on Xarelto for years, finished with treatment -continue on Lovenox for DVT prophylaxis , Gen. Surgeon agreed -increase ambulation COPD (chronic obstructive pulmonary disease) Chronic obstructive pulmonary disease, unspecified, Acute -No shortness of breath, no wheezes -Continue DuoNeb treatment as needed -Monitor respiratory status Hypertension Essential (primary) hypertension , Acute -Blood pressure controlled, in the low side -Continue Coreg, d/c amlodipine -Monitor blood pressure Hypothyroidism -Continue levothyroxine -Monitor TSH and T4 Hypokalemia Likely due to GI losses -K 3.4 today -Replaced with KCL effervescent and daily -Monitor BMP DVT prophylaxis: SCD, continue Lovenox Code Status: full code Discussed Condition With: patient, nurse GEn Surgery: Kathy Childs
[2018-05-21] MEDS ORDERED: Potassium Chloride 25 MEQ Effervescent Tablet PO ONE (15:30)
[2018-05-21] MEDS: Polyethylene Glycol 3350 17 GM Packet PO SCH (16:34)
[2018-05-21] MEDS: LORazepam 1 MG Tablet PO PRN (21:32)
[2018-05-22] MEDS: Morphine Sulfate Inj 2 MG/ML Vial IV.PUSH PRN ×5 (02:49→20:34)
[2018-05-22 08:18] LABS: Baso % (Auto) 0.2 % (0.0-2.0); Hematocrit 28.1 % (35.0-46.0); Hemoglobin 9.6 gm/dL (11.6-15.3); Lymph # (Auto) 0.8 th/mm3 (1.0-4.8); Lymph % (Auto) 11.8 % (9.0-44.0); Mean Corpuscular HGB Conc 34.1 % (32.0-36.0); Mean Corpuscular Hemoglobin 32.4 pg (27.0-34.0); Mean Corpuscular Volume 94.9 fL (80.0-100.0); Mean Platelet Volume 8.8 fL (7.0-11.0); Neut # (Auto) 4.9 th/mm3 (1.8-7.7); Platelet Count 267 th/mm3 (150-450); Red Blood Count 2.96 mil/mm3 (4.00-5.30); White Blood Count 6.8 th/mm3 (4.0-11.0)
[2018-05-22 08:28] LABS: Anion Gap 11 meq/L (5-15); Calcium 7.2 mg/dL (8.5-10.1); Carbon Dioxide 21.5 meq/L (21.0-32.0); Chloride 111 meq/L (98-107); Glomerular Filtration Rate Greater Than 89 mL/min (>89); Glucose,Random 80 mg/dL (74-106); Potassium 3.6 meq/L (3.5-5.1); Sodium 143 meq/L (136-145)
[2018-05-22 08:45] LABS: Total Protein 4.8 g/dL (6.4-8.2)
[2018-05-22] MEDS: Enoxaparin Inj 40 MG/0.4 ML Syringe SQ SCH (09:40)
[2018-05-22] MEDS: Pantoprazole Sodium 20 MG DR Tablet PO SCH (09:40)
[2018-05-22] MEDS: Senna/Docusate Sodium 8.6/50 MG Tablet PO SCH ×2 (09:40→20:34)
[2018-05-22] MEDS: Carvedilol 12.5 MG Tablet PO SCH ×2 (09:40→20:33)
[2018-05-22] MEDS: Polyethylene Glycol 3350 17 GM Packet PO SCH (09:41)
[2018-05-22] MEDS: Potassium Chloride 25 MEQ Effervescent Tablet PO SCH (09:41)
[2018-05-22] MEDS: Budesonide-Formoterol 160/4.5 MCG 6 GM Inhaler INH SCH ×2 (09:41→20:41)
--- NOTE | 2018-05-22 11:06 | P.PNGS ---
Subjective Patient reports: no new complaints, feels better (no acute issues, tube fell out , paulette ) Physical Exam Vital signs: Vital Signs 05/21/18 14:00 05/21/18 14:30 05/21/18 16:00 Temperature 97.2 F L 98 F Pulse Rate 99 H 89 Respiratory Rate 15 16 15 Blood Pressure 99/58 L 112/60 Pulse Oximetry 95 95 05/21/18 20:00 05/22/18 00:00 05/22/18 02:46 Temperature 99.5 F 98.8 F Pulse Rate 94 H 91 H 92 H Respiratory Rate 20 18 Blood Pressure 115/75 97/59 L 107/68 Pulse Oximetry 94 L 92 L 05/22/18 08:00 Temperature 99.0 F Pulse Rate 84 Respiratory Rate 16 Blood Pressure 92/52 L Pulse Oximetry 92 L Intake & Output 05/21/18 05/22/18 05/22/18 18:59 06:59 18:59 Intake Total 111 / 111 1320 / 1320 Output Total 300 / 300 Balance -189 / -189 1320 / 1320 Weight 78.6 kg Intake: IV 1000 / 1000 NS + KCl 20 mEq Inj 1,000 ML @ 1000 / 1000 100 mls/hr IV.CONT .Q10H AMBROCIO Rx #:[id number] Oral 111 / 111 320 / 320 Output: Gastric Drainage 300 / 300 Right Nare 300 / 300 Wound Drainage 0 / 0 Left Lower Abdomen 0 / 0 Other: # Voids 10 2 Date of Last Bowel Movement 05/21/18 # Bowel Movements 5 1 - Routine Abdominal Exam Present: soft (mild ttp) - Urinary Catheter Management straight cath 16fr Cath placed during this visit: no Results - Labs 05/22/18 05:54 05/22/18 05:54 Laboratory Results - last 24 hr 05/22/18 05/22/18 05:54 05:54 WBC 6.8 RBC 2.96 L Hgb 9.6 L Hct 28.1 L MCV 94.9 MCH 32.4 MCHC 34.1 RDW 14.0 Plt Count 267 MPV 8.8 Neut % (Auto) 73.0 H Lymph % (Auto) 11.8 [place] % (Auto) 15.0 H Eos % (Auto) 0.0 Baso % (Auto) 0.2 Neut # (Auto) 4.9 Lymph # (Auto) 0.8 L [place] # (Auto) 1.0 H Eos # (Auto) 0.0 Baso # (Auto) 0.0 WBC Differential . Differential Comment Auto diff final Sodium 143 Potassium 3.6 Chloride 111 H Carbon Dioxide 21.5 Anion Gap 11 BUN Less than 1 L Creatinine 0.28 L Estimated GFR Greater than 89 Random Glucose 80 Calcium 7.2 L* Prot Corrected Calcium 8.5 Total Protein 4.8 L - Imaging Imaging: ITS Impressions Abdomen/Pelvis CT 05/12/18 20:18 CONCLUSION: 1. CT findings of a small bowel obstruction with a transition identified in the right lateral abdomen in the region of the terminal ileum. The distal terminal ileum is completely decompressed. 2. Right inguinal hernia measuring 5 cm in diameter again contains fat and fluid. It also appears to contain the right-sided dome or urachus of the urinary bladder. 3. Small moderate-sized hiatal hernia. Abdomen X-Ray 05/19/18 08:00 CONCLUSION: There has been interval placement of a nasogastric tube with decompression of the stomach. No findings to indicate a bowel obstruction identified. There is gas and stool identified throughout the small bowel and colon. Small Bowel X-Ray 05/21/18 00:00 CONCLUSION: Negative for obstruction Assessment and Plan - Assessment (1) Incarcerated right inguinal hernia Code(s): K40.30 - Unilateral inguinal hernia, with obstruction, without gangrene , not specified as recurrent Status: Acute - Plan 67 year old female s/p dx lap; open RIGHT inguinal hernia repair; RG drain placement clear diet advance to fulls, regular soft diet tomorrow if tolerating fulls leave ng out pain control appreciate medical mgnt for swelling anticipate d/c in 48 hours-72 hours dvt ppx
--- NOTE | 2018-05-22 12:30 | P.PNIM ---
Subjective Interval history: Follow-up small bowel obstruction, status post diagnostic lap with right inguinal hernia repair, abdominal pain,abdominal distention, nausea, hypertension, COPD. Patient seen and examined laying in bed, stated feeling better. Patient stated the NG tube came out she do not know how it came out. Patient denies any nausea or vomiting at this time, stated however he she have some nausea sometimes. Patient's denies any abdominal pain, diarrhea or constipation. Patient denies any headache or dizziness, denies any chest pain or shortness of breath. Patient denies any fever or chills. Patient complains about of ankle edema which started when she was in the hospital stated this begins when everything happens. Stated was never had edema before, however was taking diuretic for blood pressure hydrochlorothiazide. Physical Exam Vital signs: Vital Signs 05/21/18 14:00 05/21/18 14:30 05/21/18 16:00 Temperature 97.2 F L 98 F Pulse Rate 99 H 89 Respiratory Rate 15 16 15 Blood Pressure 99/58 L 112/60 Pulse Oximetry 95 95 05/21/18 20:00 05/22/18 00:00 05/22/18 02:46 Temperature 99.5 F 98.8 F Pulse Rate 94 H 91 H 92 H Respiratory Rate 20 18 Blood Pressure 115/75 97/59 L 107/68 Pulse Oximetry 94 L 92 L 05/22/18 08:00 Temperature 99.0 F Pulse Rate 84 Respiratory Rate 16 Blood Pressure 92/52 L Pulse Oximetry 92 L Intake & Output 05/21/18 05/22/18 05/22/18 18:59 06:59 18:59 Intake Total 111 / 111 1320 / 1320 Output Total 300 / 300 Balance -189 / -189 1320 / 1320 Weight 78.6 kg Intake: IV 1000 / 1000 NS + KCl 20 mEq Inj 1,000 ML @ 1000 / 1000 100 mls/hr IV.CONT .Q10H AMBROCIO Rx #:[id number] Oral 111 / 111 320 / 320 Output: Gastric Drainage 300 / 300 Right Nare 300 / 300 Wound Drainage 0 / 0 Left Lower Abdomen 0 / 0 Other: # Voids 10 2 Date of Last Bowel Movement 05/21/18 # Bowel Movements 5 1 Narrative: GENERAL: Well-developed, well-nourished, female in no apparent distress SKIN: Warm and dry. HEAD: Atraumatic. Normocephalic. EYES: Pupils equal and round. No scleral icterus. No injection or drainage. ENT: No nasal bleeding or discharge. Mucous membranes pink and moist. NECK: Trachea midline. No JVD. CARDIOVASCULAR: Regular rate and rhythm. RESPIRATORY: No accessory muscle use. Clear to auscultation. Breath sounds equal bilaterally. GASTROINTESTINAL: Abdomen soft, slight abdominal tenderness on palpation, nondistended. Hepatic and splenic margins not palpable. Multiple left abdominal incisions with Steri-Strips dry and intact, right inguinal incision clean, dry and intact with mild bruising. MUSCULOSKELETAL: Extremities without clubbing, cyanosis, or edema. No obvious deformities. NEUROLOGICAL: Awake and alert. No obvious cranial nerve deficits. Motor grossly within normal limits. Generalized weakness with moving all 4 extremities. Normal speech. PSYCHIATRIC: Appropriate mood and affect; insight and judgment normal. - Urinary Catheter Management straight cath 16fr Cath placed during this visit: no Results - Labs CBC & Chem 7: 05/22/18 05:54 05/22/18 05:54 Laboratory Results - last 24 hr 05/22/18 05/22/18 05:54 05:54 WBC 6.8 RBC 2.96 L Hgb 9.6 L Hct 28.1 L MCV 94.9 MCH 32.4 MCHC 34.1 RDW 14.0 Plt Count 267 MPV 8.8 Neut % (Auto) 73.0 H Lymph % (Auto) 11.8 [place] % (Auto) 15.0 H Eos % (Auto) 0.0 Baso % (Auto) 0.2 Neut # (Auto) 4.9 Lymph # (Auto) 0.8 L [place] # (Auto) 1.0 H Eos # (Auto) 0.0 Baso # (Auto) 0.0 WBC Differential . Differential Comment Auto diff final Sodium 143 Potassium 3.6 Chloride 111 H Carbon Dioxide 21.5 Anion Gap 11 BUN Less than 1 L Creatinine 0.28 L Estimated GFR Greater than 89 Random Glucose 80 Calcium 7.2 L* Prot Corrected Calcium 8.5 Total Protein 4.8 L - Imaging Impressions Small Bowel X-Ray 05/21/18 00:00 CONCLUSION: Negative for obstruction - Procedures 05/15/2018 PREOPERATIVE DIAGNOSIS: Small bowel obstruction. POSTOPERATIVE DIAGNOSIS: Small-bowel obstruction from incarceration of right inguinal hernia. SURGEON: Eliseo Souza MD PROCEDURE PERFORMED: 1. Diagnostic laparoscopy. 2. Laparoscopic reduction of inguinal hernia. 3. Open right inguinal hernia repair with mesh, 3 x 6 atrium mesh. DESIGNER ARCHITECT: Trenton De Leon MD. ANESTHESIA: GETA. IV FLUIDS: See anesthesia sheet. ESTIMATED BLOOD LOSS: 10 mL. DRAINS: A 10-Greek flat Ranjit drain. WOUND CLASSIFICATION: Clean. SPECIMENS: None. FINDINGS: Large right inguinal hernia, indurated ischemic mesentery. Bowel appeared viable, but somewhat hemorrhagic to the small bowel causing bowel obstruction with dilated proximal loops and decompressed distal loops. INDICATIONS FOR PROCEDURE: The patient is a 67-year-old female who presented with acute onset of abdominal pain and abdominal distention. The patient with a history of Aaron fundoplication and unable to burp or vomit. She had CT scan workup showing a significantly dilated bowel loops with decompressed distal bowel loops. Right inguinal hernia that did not contain any small bowel on CT scan and a small bowel follow through showing non-passes of contrast at 4-1/2 hours. Decision was made for diagnostic laparoscopy, laparoscopic lysis of adhesion with possible bowel resection. DETAILS OF PROCEDURE: The patient was taken to the operating suite, placed in supine position. She was prepped and draped in the usual sterile fashion after induction of general endotracheal anesthesia. Brief timeout done stating correct patient, procedure, surgical site, and all were in agreement with this. Attention first directed to the left upper quadrant where local anesthetic was injected. A small stab jenna incision was made with a 15 blade. A Visiport 5 mm Optiview port was done to enter the abdomen safely. Abdomen insufflated to 15 mm pneumoperitoneum. On cursory inspection, no evidence of injury. The abdomen was noted to be markedly dilated. There was noted to be serosanguineous fluid in the dependent pelvis. Further, it was noted a right inguinal hernia with bowel mesentery contained within creating bowel obstruction. Two other ports placed in the left lower quadrant and left mid quadrant. The mesentery was reduced from the hernia. Hernia was somewhat large containing sac. The bowel noted to be viable, but somewhat hemorrhagic and noted to be patent. The mesentery was somewhat indurated and also somewhat hemorrhagic, but also noted to be relatively viable. Decision at this point was to not resect the bowel due to it looking viable and pink and placing a small drain at the port incision. 2-0 nylon used to secure this, which was placed in the dependent pelvis and near questionable bowel. Then, decision was made to repair the right inguinal hernia. This was done in an open technique. The patient had a previous tummy tuck scar. Incision was done along the tummy tuck scar, 5 cm. The tummy tuck created adhesion and distortion of anatomy; however, #15 blade used followed by Bovie cautery to incise along the scar of the tummy tuck incision. This was done down to the external oblique fascia. Stab jenna was made with a 15 blade in the direction of the external oblique fibers. Metzenbaum scissors were used to run towards the external ring and then proximal. Hemostats placed on the external oblique fascia. Ilioinguinal nerve was cut and removed. Large deep hernia defect noted. The inguinal floor was somewhat thin. A 3 x 6 atrium mesh was obtained. The pubic tubercle was palpated. 0 Ethibonds were used to secure the atrial mesh to the pubic tubercle along the shelving edge and conjoined tendon. The mesh noticed to sit flat and was well secured. The external oblique was then repaired with a 2-0 Vicryl. Local anesthetic injected. The external ring was recreated. Hemostasis was obtained. Brandie's fascia was closed with 2-0 Vicryl. The subcutaneous 3-0 Vicryl suture was done followed by a 4-0 Monocryl subcuticular suture. The hernia defect noted to be intact. Abdomen then desufflated. Ports were removed. The ports were closed with 4-0 Monocryl. Sterile dressing was placed. The patient tolerated procedure well. No intraoperative complications. All lap and instrument counts were correct at the end of the procedure. The patient was extubated and taken to the PACU. MD MARQUISE Jacobson/venus , 11:20 PM Assessment and Plan - Assessment (1) COPD (chronic obstructive pulmonary disease) Code(s): J44.9 - Chronic obstructive pulmonary disease, unspecified Status: Acute (2) Hypertension Code(s): I10 - Essential (primary) hypertension Status: Acute (3) Hypothyroidism Code(s): E03.9 - Hypothyroidism, unspecified Status: Acute (4) Small bowel obstruction Code(s): K56.609 - Unspecified intestinal obstruction, unspecified as to partial versus complete obstruction Status: Acute (5) Incarcerated right inguinal hernia Code(s): K40.30 - Unilateral inguinal hernia, with obstruction, without gangrene , not specified as recurrent Status: Acute - Plan This patient is a 67 y/o female with history of hypertension, COPD , hernia repair, who presented to ER with constipation. She says that she hasn't had any bowel movement since last week and she couldn't pass any gas. Came into the emergency room for evaluation and treatment Small bowel obstruction related to incarceration of right inguinal hernia Unspecified intestinal obstruction, unspecified as to partial versus complete obstruction, Acute Incarcerated right inguinal hernia Unilateral inguinal hernia, with obstruction, without gangrene, not specified as recurrent , Acute -Status post diagnostic laparoscopy/laparoscopic reduction of inguinal hernia/ open right inguinal hernia repair with mesh with Dr. Souza -NG tube to low intermittent suction for distended stomach -Hold IV fluid, pt tolerating PO diet, Bilateral LE Edema -Incision care, RG drain management -Pain medication with bowel regimen -continue Reglan, add Zofran prn for nausea -General Surgeon Dr Souza, following: Plan for another surgery/SB resection if no improvement -Restart on stool softener per Dr. Souza recommendation -still have having abdominal discomfort, some nausea, no vomiting, with diarrhea /loose stools -Small bowel follow through with GI : keep NG tube out, advance diet Hx PE, per patient previously on Xarelto for years, finished with treatment -continue on Lovenox for DVT prophylaxis , Gen. Surgeon agreed -increase ambulation COPD (chronic obstructive pulmonary disease) Chronic obstructive pulmonary disease, unspecified, Acute -No shortness of breath, no wheezes -Continue DuoNeb treatment as needed -Monitor respiratory status Hypertension Essential (primary) hypertension , Acute -Blood pressure controlled, in the low side -Continue Coreg, d/c amlodipine -Monitor blood pressure LE Edema -restart low dose HCTZ, due to edema -add ely hose -elevate LE while in bed -d/c IVF, pt tolerating PO diet Hypothyroidism -Continue levothyroxine -Monitor TSH and T4 Hypokalemia Likely due to GI losses -improving, K 4.1on 05/20 -Replaced with KCL effervescent and daily -Monitor BMP DVT prophylaxis: SCD, continue Lovenox Code Status: full code Discussed Condition With: patient and nurse Discharge Planning: Plan for discharge when cleared with GI. Anticipate d/c in 48 hours-72 hours, per GI
[2018-05-22 19:52] LABS: Bacteria,Urine Many /hpf; Bilirubin,Urine Negative (Negative); Clarity,Urine Hazy (Clear); Color,Urine Yellow (Yellw/Straw); Glucose,Urine (UA) Negative (Negative); Leukocyte Esterase,Urine Large (Negative); Mucus,Urine Few /lpf (Occasional); Nitrite,Urine Negative (Negative); Specific Gravity,Urine 1.006 (1.002-1.035); Squamous Epithelial Cell,Urine 1 /hpf (0-5)
[2018-05-22] MEDS: LORazepam 1 MG Tablet PO PRN (20:34)
[2018-05-23] MEDS: Morphine Sulfate Inj 2 MG/ML Vial IV.PUSH PRN ×5 (01:52→18:42)
[2018-05-23 09:54] LABS: Hematocrit 32.6 % (35.0-46.0); Hemoglobin 10.7 gm/dL (11.6-15.3); Mean Corpuscular HGB Conc 32.8 % (32.0-36.0); Mean Corpuscular Hemoglobin 31.8 pg (27.0-34.0); Mean Platelet Volume 8.5 fL (7.0-11.0); Platelet Count 255 th/mm3 (150-450); Red Blood Count 3.36 mil/mm3 (4.00-5.30); Red Cell Distribution Width 14.9 % (11.6-17.2); White Blood Count 8.3 th/mm3 (4.0-11.0)
[2018-05-23 10:17] LABS: Anion Gap 9 meq/L (5-15); Calcium 7.4 mg/dL (8.5-10.1); Carbon Dioxide 22.8 meq/L (21.0-32.0); Chloride 107 meq/L (98-107); Glomerular Filtration Rate Greater Than 89 mL/min (>89); Glucose,Random 73 mg/dL (74-106); Magnesium 1.6 mg/dL (1.5-2.5); Sodium 139 meq/L (136-145)
[2018-05-23] MEDS: Pantoprazole Sodium 20 MG DR Tablet PO SCH (10:17)
[2018-05-23] MEDS: Polyethylene Glycol 3350 17 GM Packet PO SCH (10:17)
[2018-05-23] MEDS: Carvedilol 12.5 MG Tablet PO SCH ×2 (10:17→20:23)
[2018-05-23] MEDS: Senna/Docusate Sodium 8.6/50 MG Tablet PO SCH ×2 (10:18→20:23)
[2018-05-23] MEDS: Potassium Chloride 25 MEQ Effervescent Tablet PO SCH (10:18)
[2018-05-23] MEDS: Budesonide-Formoterol 160/4.5 MCG 6 GM Inhaler INH SCH ×2 (10:18→20:24)
[2018-05-23] MEDS: Enoxaparin Inj 40 MG/0.4 ML Syringe SQ SCH (10:18)
[2018-05-23 10:45] LABS: Total Protein 5.3 g/dL (6.4-8.2)
[2018-05-23] MEDS ORDERED: Non-Formulary Drug (Hydrochlorothiazide [Hydrochlorothiazide] 12.5 MG) PO SCH (11:15)
--- NOTE | 2018-05-23 11:18 | P.PNIM ---
Subjective Interval history: Follow-up small bowel obstruction, status post diagnostic lap with right inguinal hernia repair, abdominal pain,abdominal distention, nausea, hypertension, COPD. c/o lower leg edema some nausea. no vomiting tolerating diet no diarrhea Patient ambulatory in the hallway Patient denies any headache or dizziness, denies any chest pain or shortness of breath, denies any fever or chills. Physical Exam Vital signs: Vital Signs 05/22/18 16:00 05/22/18 20:00 05/23/18 00:00 Temperature 98.4 F 98.2 F 98.6 F Pulse Rate 88 97 H 85 Respiratory Rate 16 18 17 Blood Pressure 109/63 103/66 100/60 Pulse Oximetry 95 97 93 L 05/23/18 08:00 Temperature 97.9 F Pulse Rate 87 Respiratory Rate 16 Blood Pressure 100/61 Pulse Oximetry 94 L Intake & Output 05/22/18 05/23/18 05/23/18 19:59 06:59 18:59 Intake Total 1000 / 1000 Output Total Balance 1000 / 1000 Weight Intake: IV 1000 / 1000 NS + KCl 20 mEq Inj 1,000 ML @ 1000 / 1000 100 mls/hr IV.CONT .Q10H AMBROCIO Rx #:[id number] Output: Urine Other: # Voids Narrative: GENERAL: Well-developed, well-nourished, female in no apparent distress SKIN: Warm and dry. HEAD: Atraumatic. Normocephalic. EYES: Pupils equal and round. No scleral icterus. No injection or drainage. ENT: No nasal bleeding or discharge. Mucous membranes pink and moist. NECK: Trachea midline. No JVD. CARDIOVASCULAR: Regular rate and rhythm. RESPIRATORY: No accessory muscle use. Clear to auscultation. Breath sounds equal bilaterally. GASTROINTESTINAL: Abdomen soft, slight abdominal tenderness on palpation, nondistended. Hepatic and splenic margins not palpable. Multiple left abdominal incisions with Steri-Strips dry and intact, right inguinal incision with Steri- Strips, clean, dry and intact with mild bruising no redness no drainage healing well MUSCULOSKELETAL: Extremities without clubbing, cyanosis, or edema. No obvious deformities. NEUROLOGICAL: Awake and alert. No obvious cranial nerve deficits. Motor grossly within normal limits. Generalized weakness with moving all 4 extremities. Normal speech. PSYCHIATRIC: Appropriate mood and affect; insight and judgment normal. - Urinary Catheter Management straight cath 16fr Cath placed during this visit: no Results - Labs CBC & Chem 7: 05/23/18 08:12 05/23/18 08:12 Laboratory Results - last 24 hr 05/22/18 05/23/18 05/23/18 19:25 08:12 08:12 WBC 8.3 RBC 3.36 L Hgb 10.7 L Hct 32.6 L MCV 97.0 MCH 31.8 MCHC 32.8 RDW 14.9 Plt Count 255 MPV 8.5 Sodium 139 Potassium 4.0 Chloride 107 Carbon Dioxide 22.8 Anion Gap 9 BUN Less than 1 L Creatinine 0.29 L Estimated GFR Greater than 89 Random Glucose 73 L Calcium 7.4 L* Prot Corrected Calcium 8.4 L Magnesium 1.6 Total Protein 5.3 L Urine Color Yellow Urine Clarity Hazy H Urine pH 5.0 Ur Specific [place] 1.006 Urine Protein Negative Urine Glucose (UA) Negative Urine Ketones 20 Urine Occult Blood Small H Urine Nitrate Negative Urine Bilirubin Negative Urine Urobilinogen Less than 2 Ur Leukocyte Esterase Large H Urine RBC 2 Urine WBC 58 H Urine WBC Clumps Few H Ur Squamous Epith Cells 1 Urine Bacteria Many H Urine Mucus Few H Micro UA Comment Culture indicated Ur Microscopic Review Not Reportable Urine Culture Comments Culture indicated - Procedures 05/15/2018 PREOPERATIVE DIAGNOSIS: Small bowel obstruction. POSTOPERATIVE DIAGNOSIS: Small-bowel obstruction from incarceration of right inguinal hernia. SURGEON: Eliseo Souza MD PROCEDURE PERFORMED: 1. Diagnostic laparoscopy. 2. Laparoscopic reduction of inguinal hernia. 3. Open right inguinal hernia repair with mesh, 3 x 6 atrium mesh. ERRAND RUNNER: Trenton De Leon MD. ANESTHESIA: GETA. IV FLUIDS: See anesthesia sheet. ESTIMATED BLOOD LOSS: 10 mL. DRAINS: A 10-Yi flat Ranjit drain. WOUND CLASSIFICATION: Clean. SPECIMENS: None. FINDINGS: Large right inguinal hernia, indurated ischemic mesentery. Bowel appeared viable, but somewhat hemorrhagic to the small bowel causing bowel obstruction with dilated proximal loops and decompressed distal loops. INDICATIONS FOR PROCEDURE: The patient is a 67-year-old female who presented with acute onset of abdominal pain and abdominal distention. The patient with a history of Aaron fundoplication and unable to burp or vomit. She had CT scan workup showing a significantly dilated bowel loops with decompressed distal bowel loops. Right inguinal hernia that did not contain any small bowel on CT scan and a small bowel follow through showing non-passes of contrast at 4-1/2 hours. Decision was made for diagnostic laparoscopy, laparoscopic lysis of adhesion with possible bowel resection. DETAILS OF PROCEDURE: The patient was taken to the operating suite, placed in supine position. She was prepped and draped in the usual sterile fashion after induction of general endotracheal anesthesia. Brief timeout done stating correct patient, procedure, surgical site, and all were in agreement with this. Attention first directed to the left upper quadrant where local anesthetic was injected. A small stab jenna incision was made with a 15 blade. A Visiport 5 mm Optiview port was done to enter the abdomen safely. Abdomen insufflated to 15 mm pneumoperitoneum. On cursory inspection, no evidence of injury. The abdomen was noted to be markedly dilated. There was noted to be serosanguineous fluid in the dependent pelvis. Further, it was noted a right inguinal hernia with bowel mesentery contained within creating bowel obstruction. Two other ports placed in the left lower quadrant and left mid quadrant. The mesentery was reduced from the hernia. Hernia was somewhat large containing sac. The bowel noted to be viable, but somewhat hemorrhagic and noted to be patent. The mesentery was somewhat indurated and also somewhat hemorrhagic, but also noted to be relatively viable. Decision at this point was to not resect the bowel due to it looking viable and pink and placing a small drain at the port incision. 2-0 nylon used to secure this, which was placed in the dependent pelvis and near questionable bowel. Then, decision was made to repair the right inguinal hernia. This was done in an open technique. The patient had a previous tummy tuck scar. Incision was done along the tummy tuck scar, 5 cm. The tummy tuck created adhesion and distortion of anatomy; however, #15 blade used followed by Bovie cautery to incise along the scar of the tummy tuck incision. This was done down to the external oblique fascia. Stab jenna was made with a 15 blade in the direction of the external oblique fibers. Metzenbaum scissors were used to run towards the external ring and then proximal. Hemostats placed on the external oblique fascia. Ilioinguinal nerve was cut and removed. Large deep hernia defect noted. The inguinal floor was somewhat thin. A 3 x 6 atrium mesh was obtained. The pubic tubercle was palpated. 0 Ethibonds were used to secure the atrial mesh to the pubic tubercle along the shelving edge and conjoined tendon. The mesh noticed to sit flat and was well secured. The external oblique was then repaired with a 2-0 Vicryl. Local anesthetic injected. The external ring was recreated. Hemostasis was obtained. Brandie's fascia was closed with 2-0 Vicryl. The subcutaneous 3-0 Vicryl suture was done followed by a 4-0 Monocryl subcuticular suture. The hernia defect noted to be intact. Abdomen then desufflated. Ports were removed. The ports were closed with 4-0 Monocryl. Sterile dressing was placed. The patient tolerated procedure well. No intraoperative complications. All lap and instrument counts were correct at the end of the procedure. The patient was extubated and taken to the PACU. MD MARQUISE Jacobson/venus , 11:20 PM Assessment and Plan - Assessment (1) COPD (chronic obstructive pulmonary disease) Code(s): J44.9 - Chronic obstructive pulmonary disease, unspecified Status: Acute (2) Hypertension Code(s): I10 - Essential (primary) hypertension Status: Acute (3) Hypothyroidism Code(s): E03.9 - Hypothyroidism, unspecified Status: Acute (4) Small bowel obstruction Code(s): K56.609 - Unspecified intestinal obstruction, unspecified as to partial versus complete obstruction Status: Acute (5) Incarcerated right inguinal hernia Code(s): K40.30 - Unilateral inguinal hernia, with obstruction, without gangrene , not specified as recurrent Status: Acute - Plan This patient is a 67 y/o female with history of hypertension, COPD , hernia repair, who presented to ER with constipation. She says that she hasn't had any bowel movement since last week and she couldn't pass any gas. Came into the emergency room for evaluation and treatment Small bowel obstruction related to incarceration of right inguinal hernia Unspecified intestinal obstruction, unspecified as to partial versus complete obstruction, Acute Incarcerated right inguinal hernia Unilateral inguinal hernia, with obstruction, without gangrene, not specified as recurrent , Acute -Status post diagnostic laparoscopy/laparoscopic reduction of inguinal hernia/ open right inguinal hernia repair with mesh with Dr. Souza -NG tube to low intermittent suction for distended stomach -Hold IV fluid, pt tolerating PO diet, Bilateral LE Edema -Incision care, RG drain management -Pain medication with bowel regimen -continue Reglan, add Zofran prn for nausea -General Surgeon Dr Souza, following: Plan for another surgery/SB resection if no improvement -Restart on stool softener per Dr. Souza recommendation -still have having abdominal discomfort, some nausea, no vomiting, with diarrhea /loose stools -Small bowel follow through with GI : keep NG tube out, advance diet -Patient tolerating p.o. diet, denies any abdominal pain, no nausea no vomiting , no diarrhea Hx PE, per patient previously on Xarelto for years, finished with treatment -continue on Lovenox for DVT prophylaxis , Gen. Surgeon agreed -increase ambulation COPD (chronic obstructive pulmonary disease) Chronic obstructive pulmonary disease, unspecified, Acute -No shortness of breath, no wheezes -Continue DuoNeb treatment as needed -Monitor respiratory status Hypertension Essential (primary) hypertension , Acute -Blood pressure controlled, in the low side -Continue Coreg, d/c amlodipine -Monitor blood pressure LE Edema -Hydrochlorothiazide was on hold since admission, restarted and increase dose -add ely hose -elevate LE while in bed -d/c IVF, pt tolerating PO diet -Monitor BMP Hypothyroidism -Continue levothyroxine -Monitor TSH and T4 Hypokalemia Likely due to GI losses -improving, K 4.0 on 05/23 -Replaced with KCL effervescent and daily -Monitor BMP DVT prophylaxis: SCD, continue Lovenox Code Status: full code Discussed Condition With: patient and nurse Discharge Planning: Plan for discharge when cleared with GI. Anticipate d/c in 48 hours-72 hours, per GI, more likely 05/24
[2018-05-23] MEDS: hydroCHLOROthiazide 25 MG Tablet PO SCH (14:38)
--- NOTE | 2018-05-23 16:21 | P.PNGS ---
Subjective Patient reports: other Interval history: DAILY PROGRESS NOTE FOR SURGICAL ATTENDING, DR. BRANDT MCDONALD Patient states she has painful urination and usually when she has that she has a urinary tract infection Physical Exam Vital signs: Vital Signs 05/22/18 20:00 05/23/18 00:00 05/23/18 08:00 Temperature 98.2 F 98.6 F 97.9 F Pulse Rate 97 H 85 87 Respiratory Rate 18 17 16 Blood Pressure 103/66 100/60 100/61 Pulse Oximetry 97 93 L 94 L Intake & Output 05/22/18 05/23/18 05/23/18 19:59 06:59 18:59 Intake Total 1000 / 1000 Output Total Balance 1000 / 1000 Weight Intake: IV 1000 / 1000 NS + KCl 20 mEq Inj 1,000 ML @ 1000 / 1000 100 mls/hr IV.CONT .Q10H AMBROCIO Rx #:[id number] Output: Urine Other: # Voids Narrative: Alert oriented Sitting up in bed Abdomen soft postsurgical mild soreness in the right groin from where her hernia was located She has a small seroma in the right mild edema lower extremities - Urinary Catheter Management straight cath 16fr Cath placed during this visit: no Results - Labs 05/23/18 08:12 05/23/18 08:12 Laboratory Results - last 24 hr 05/22/18 05/23/18 05/23/18 19:25 08:12 08:12 WBC 8.3 RBC 3.36 L Hgb 10.7 L Hct 32.6 L MCV 97.0 MCH 31.8 MCHC 32.8 RDW 14.9 Plt Count 255 MPV 8.5 Sodium 139 Potassium 4.0 Chloride 107 Carbon Dioxide 22.8 Anion Gap 9 BUN Less than 1 L Creatinine 0.29 L Estimated GFR Greater than 89 Random Glucose 73 L Calcium 7.4 L* Prot Corrected Calcium 8.4 L Magnesium 1.6 Total Protein 5.3 L Urine Color Yellow Urine Clarity Hazy H Urine pH 5.0 Ur Specific [place] 1.006 Urine Protein Negative Urine Glucose (UA) Negative Urine Ketones 20 Urine Occult Blood Small H Urine Nitrate Negative Urine Bilirubin Negative Urine Urobilinogen Less than 2 Ur Leukocyte Esterase Large H Urine RBC 2 Urine WBC 58 H Urine WBC Clumps Few H Ur Squamous Epith Cells 1 Urine Bacteria Many H Urine Mucus Few H Micro UA Comment Culture indicated Ur Microscopic Review Not Reportable Urine Culture Comments Culture indicated Microbiology 05/22/18 19:25 Urine Culture - Preliminary Clean Catch Urine gram negative rods - Imaging Imaging: ITS Impressions Abdomen/Pelvis CT 05/12/18 20:18 CONCLUSION: 1. CT findings of a small bowel obstruction with a transition identified in the right lateral abdomen in the region of the terminal ileum. The distal terminal ileum is completely decompressed. 2. Right inguinal hernia measuring 5 cm in diameter again contains fat and fluid. It also appears to contain the right-sided dome or urachus of the urinary bladder. 3. Small moderate-sized hiatal hernia. Abdomen X-Ray 05/19/18 08:00 CONCLUSION: There has been interval placement of a nasogastric tube with decompression of the stomach. No findings to indicate a bowel obstruction identified. There is gas and stool identified throughout the small bowel and colon. Small Bowel X-Ray 05/21/18 00:00 CONCLUSION: Negative for obstruction Assessment and Plan - Assessment (1) Dysuria Code(s): R30.0 - Dysuria Status: Acute (2) Urinary tract infection Code(s): N39.0 - Urinary tract infection, site not specified Status: Acute (3) COPD (chronic obstructive pulmonary disease) Code(s): J44.9 - Chronic obstructive pulmonary disease, unspecified Status: Acute (4) Ileus Code(s): K56.7 - Ileus, unspecified Status: Acute - Plan 67-year-old female for ileus Urinalysis shows a urinary tract infection with E. coli We will start on antibiotics to cover for urinary tract infections I suspect her urinary tract infection may be a contributing factor to her ileus - Attending Attestation NOTE FOR SURGICAL ATTENDING, DR. BRANDT MCDONALD I attest that I had a [id number] encounter with the patient on the same day, and personally performed and documented my assessment and findings in the medical record. The following services were provided during this hospital visit: Chart data review, vital sign assessments/reviewing monitor data Review of consultations notes if present. Medication orders/review and/or management Ordering and/or reviewing lab tests Ordering and/or interpreting/reviewing x-rays and/or diagnostic studies Care of the patient and discussion of the patient with the care team Documentation time To help prompt me to consider important information that might be impacting today's encounter and assessment, Information from prior notes written by myself or my colleagues may have been "brought forward/copy and pasted" into today's note.
[2018-05-23] MEDS: Amoxicillin/Clavulanate 500/125 MG Tablet PO SCH (20:22)
[2018-05-23] MEDS: LORazepam 1 MG Tablet PO PRN (20:23)
[2018-05-23] MEDS: Ciprofloxacin 500 MG Tablet PO SCH (20:23)
[2018-05-24] MEDS: Morphine Sulfate Inj 2 MG/ML Vial IV.PUSH PRN ×5 (05:07→21:41)
[2018-05-24 07:30] LABS: Anion Gap 7 meq/L (5-15); Calcium 7.7 mg/dL (8.5-10.1); Carbon Dioxide 29.9 meq/L (21.0-32.0); Chloride 105 meq/L (98-107); Glomerular Filtration Rate Greater Than 89 mL/min (>89); Glucose,Random 96 mg/dL (74-106); Potassium 3.3 meq/L (3.5-5.1); Sodium 142 meq/L (136-145)
[2018-05-24] MEDS: Senna/Docusate Sodium 8.6/50 MG Tablet PO SCH ×2 (09:05→21:38)
[2018-05-24] MEDS: Pantoprazole Sodium 20 MG DR Tablet PO SCH (09:05)
[2018-05-24] MEDS: Carvedilol 12.5 MG Tablet PO SCH ×2 (09:05→21:39)
[2018-05-24] MEDS: hydroCHLOROthiazide 25 MG Tablet PO SCH (09:05)
[2018-05-24] MEDS: Ciprofloxacin 500 MG Tablet PO SCH ×2 (09:05→21:39)
[2018-05-24] MEDS: Potassium Chloride 25 MEQ Effervescent Tablet PO SCH ×2 (09:05→21:38)
[2018-05-24] MEDS: Enoxaparin Inj 40 MG/0.4 ML Syringe SQ SCH (09:05)
[2018-05-24] MEDS: Budesonide-Formoterol 160/4.5 MCG 6 GM Inhaler INH SCH ×2 (09:05→21:40)
[2018-05-24] MEDS: Amoxicillin/Clavulanate 500/125 MG Tablet PO SCH ×2 (09:05→21:39)
[2018-05-24] MEDS: Polyethylene Glycol 3350 17 GM Packet PO SCH (09:05)
--- NOTE | 2018-05-24 11:08 | P.PNGS ---
Subjective Patient reports: feels better, flatus, bowel movement (c/o swelling) Physical Exam Vital signs: Vital Signs 05/23/18 16:00 05/23/18 20:00 05/24/18 08:00 Temperature 98.3 F 98.3 F 97.8 F Pulse Rate 82 92 H 77 Respiratory Rate 16 18 19 Blood Pressure 111/62 110/56 L 106/66 Pulse Oximetry 95 95 95 Intake & Output 05/23/18 05/24/18 05/24/18 18:59 06:59 18:59 Intake Total 2300 / 2300 480 / 480 Balance 2300 / 2300 480 / 480 Weight 78.2 kg Intake: IV 1000 / 1000 NS + KCl 20 mEq Inj 1,000 ML @ 1000 / 1000 100 mls/hr IV.CONT .Q10H [facility]BROCIO Rx #:[id number] Oral 1300 / 1300 480 / 480 Other: # Voids 5 # Incontinent Voids 3 # Bowel Movements 3 - Routine Abdominal Exam Present: soft (incisions well healing) - Urinary Catheter Management straight cath 16fr Cath placed during this visit: no Results - Labs 05/23/18 08:12 05/24/18 06:38 Laboratory Results - last 24 hr 05/22/18 05/24/18 19:25 06:38 Sodium 142 Potassium 3.3 L Chloride 105 Carbon Dioxide 29.9 Anion Gap 7 BUN Less than 1 L Creatinine 0.39 L Estimated GFR Greater than 89 Random Glucose 96 Calcium 7.7 L Urine Color Yellow Urine Clarity Hazy H Urine pH 5.0 Ur Specific [place] 1.006 Urine Protein Negative Urine Glucose (UA) Negative Urine Ketones 20 Urine Occult Blood Small H Urine Nitrate Negative Urine Bilirubin Negative Urine Urobilinogen Less than 2 Ur Leukocyte Esterase Large H Urine RBC 2 Urine WBC 58 H Urine WBC Clumps Few H Ur Squamous Epith Cells 1 Urine Bacteria Many H Urine Mucus Few H Micro UA Comment Culture indicated Urine Culture Comments Culture indicated - Imaging Imaging: ITS Impressions Abdomen/Pelvis CT 05/12/18 20:18 CONCLUSION: 1. CT findings of a small bowel obstruction with a transition identified in the right lateral abdomen in the region of the terminal ileum. The distal terminal ileum is completely decompressed. 2. Right inguinal hernia measuring 5 cm in diameter again contains fat and fluid. It also appears to contain the right-sided dome or urachus of the urinary bladder. 3. Small moderate-sized hiatal hernia. Abdomen X-Ray 05/19/18 08:00 CONCLUSION: There has been interval placement of a nasogastric tube with decompression of the stomach. No findings to indicate a bowel obstruction identified. There is gas and stool identified throughout the small bowel and colon. Small Bowel X-Ray 05/21/18 00:00 CONCLUSION: Negative for obstruction Assessment and Plan - Assessment (1) Dysuria Code(s): R30.0 - Dysuria Status: Acute (2) Urinary tract infection Code(s): N39.0 - Urinary tract infection, site not specified Status: Acute (3) COPD (chronic obstructive pulmonary disease) Code(s): J44.9 - Chronic obstructive pulmonary disease, unspecified Status: Acute (4) Ileus Code(s): K56.7 - Ileus, unspecified Status: Acute - Plan 67 year old female s/p dx lap; open RIGHT inguinal hernia repair; RG drain placement, edema defer to medical team for lasixs reg soft diet pain control abx for uti anticipate d/c soon f/u with Dr. Souza 1 week dvt ppx
[2018-05-24] MEDS ORDERED: Potassium Chloride 25 MEQ Effervescent Tablet PO ONE (12:25)
[2018-05-24] MEDS: Scopalamine 1.5 MG Patch T-DERMAL SCH (13:29)
--- NOTE | 2018-05-24 14:55 | P.DCO ---
- Diagnosis (1) Small bowel obstruction Status: Acute (2) Incarcerated right inguinal hernia Status: Acute (3) Hypertension Status: Acute (4) Hypothyroidism Status: Acute (5) Urinary tract infection Status: Acute - Home Health Nursing Order: Medical education, Signs/symptoms of disease process, Medication education-adverse effect, Wound care and dressing changes, Nursing assessment with vital signs - Case Management Consult Yes - Certification I have seen patient Ashli Joaquin on 05/24/18. My clinical findings support the need for the requested home health care services because: Limited mobility due to disease progression, Deconditioned with increased weakness, Limited ability to care for self, Infection with risk of complications I certify that my clinical findings support that this patient is homebound because: Post-op weakness, Hx COPD - exertion dyspnea/weakness, Unsafe to leave home unassisted, Need for psychosocial assistance
--- NOTE | 2018-05-24 15:17 | P.PNIM ---
Subjective Interval history: Follow-up small bowel obstruction, status post diagnostic lap with right inguinal hernia repair, abdominal pain,abdominal distention, nausea, hypertension, COPD. Patient seen and examined sitting on her side of the bed denies any pain, nausea, vomiting. Mention of small abdominal discomfort on the incision site however it is tolerable. Patient stated ambulating in the room without a problem. Patient denies any headache or dizziness denies any chest pain or shortness of breath denies any fever or chills. Patient denies any diarrhea complained of some constipation stated did not go bowel movement today and stoma feel full. However had a bowel movement yesterday states that she usually take Metamucil. Patient denies any fever or chills Physical Exam Vital signs: Vital Signs 05/23/18 16:00 05/23/18 20:00 05/24/18 08:00 Temperature 98.3 F 98.3 F 97.8 F Pulse Rate 82 92 H 77 Respiratory Rate 16 18 19 Blood Pressure 111/62 110/56 L 106/66 Pulse Oximetry 95 95 95 05/24/18 12:00 Temperature 97.2 F L Pulse Rate 95 H Respiratory Rate 18 Blood Pressure 90/52 L Pulse Oximetry 95 Intake & Output 05/23/18 05/24/18 05/24/18 18:59 06:59 18:59 Intake Total 2300 / 2300 480 / 480 Balance 2300 / 2300 480 / 480 Weight 78.2 kg Intake: IV 1000 / 1000 NS + KCl 20 mEq Inj 1,000 ML @ 1000 / 1000 100 mls/hr IV.CONT .Q10H AMBROCIO Rx #:[id number] Oral 1300 / 1300 480 / 480 Other: # Voids 5 # Incontinent Voids 3 # Bowel Movements 3 Narrative: GENERAL: Well-developed, well-nourished, female in no apparent distress SKIN: Warm and dry. HEAD: Atraumatic. Normocephalic. EYES: Pupils equal and round. No scleral icterus. No injection or drainage. ENT: No nasal bleeding or discharge. Mucous membranes pink and moist. NECK: Trachea midline. No JVD. CARDIOVASCULAR: Regular rate and rhythm. RESPIRATORY: No accessory muscle use. Clear to auscultation. Breath sounds equal bilaterally. GASTROINTESTINAL: Abdomen soft, slight abdominal tenderness on palpation, nondistended. Hepatic and splenic margins not palpable. Multiple left abdominal incisions with Steri-Strips dry and intact, right inguinal incision with Steri- Strips, clean, dry and intact with mild bruising no redness no drainage healing well MUSCULOSKELETAL: Extremities without clubbing, cyanosis,with bilateral LE trace edema. No obvious deformities. NEUROLOGICAL: Awake and alert. No obvious cranial nerve deficits. Motor grossly within normal limits. Generalized weakness with moving all 4 extremities. Normal speech. PSYCHIATRIC: Appropriate mood and affect; insight and judgment normal. - Urinary Catheter Management straight cath 16fr Cath placed during this visit: no Results - Labs CBC & Chem 7: 05/23/18 08:12 05/24/18 06:38 Laboratory Results - last 24 hr 05/24/18 06:38 Sodium 142 Potassium 3.3 L Chloride 105 Carbon Dioxide 29.9 Anion Gap 7 BUN Less than 1 L Creatinine 0.39 L Estimated GFR Greater than 89 Random Glucose 96 Calcium 7.7 L Microbiology 05/22/18 19:25 Clean Catch Urine Urine Culture - Preliminary Escherichia coli - Procedures 05/15/2018 PREOPERATIVE DIAGNOSIS: Small bowel obstruction. POSTOPERATIVE DIAGNOSIS: Small-bowel obstruction from incarceration of right inguinal hernia. SURGEON: Eliseo Souza MD PROCEDURE PERFORMED: 1. Diagnostic laparoscopy. 2. Laparoscopic reduction of inguinal hernia. 3. Open right inguinal hernia repair with mesh, 3 x 6 atrium mesh. AVIATION SAFETY OFFICER: Trenton De Leon MD. ANESTHESIA: GETA. IV FLUIDS: See anesthesia sheet. ESTIMATED BLOOD LOSS: 10 mL. DRAINS: A 10-[place] flat Ranjit drain. WOUND CLASSIFICATION: Clean. SPECIMENS: None. FINDINGS: Large right inguinal hernia, indurated ischemic mesentery. Bowel appeared viable, but somewhat hemorrhagic to the small bowel causing bowel obstruction with dilated proximal loops and decompressed distal loops. INDICATIONS FOR PROCEDURE: The patient is a 67-year-old female who presented with acute onset of abdominal pain and abdominal distention. The patient with a history of Aaron fundoplication and unable to burp or vomit. She had CT scan workup showing a significantly dilated bowel loops with decompressed distal bowel loops. Right inguinal hernia that did not contain any small bowel on CT scan and a small bowel follow through showing non-passes of contrast at 4-1/2 hours. Decision was made for diagnostic laparoscopy, laparoscopic lysis of adhesion with possible bowel resection. DETAILS OF PROCEDURE: The patient was taken to the operating suite, placed in supine position. She was prepped and draped in the usual sterile fashion after induction of general endotracheal anesthesia. Brief timeout done stating correct patient, procedure, surgical site, and all were in agreement with this. Attention first directed to the left upper quadrant where local anesthetic was injected. A small stab jenna incision was made with a 15 blade. A Visiport 5 mm Optiview port was done to enter the abdomen safely. Abdomen insufflated to 15 mm pneumoperitoneum. On cursory inspection, no evidence of injury. The abdomen was noted to be markedly dilated. There was noted to be serosanguineous fluid in the dependent pelvis. Further, it was noted a right inguinal hernia with bowel mesentery contained within creating bowel obstruction. Two other ports placed in the left lower quadrant and left mid quadrant. The mesentery was reduced from the hernia. Hernia was somewhat large containing sac. The bowel noted to be viable, but somewhat hemorrhagic and noted to be patent. The mesentery was somewhat indurated and also somewhat hemorrhagic, but also noted to be relatively viable. Decision at this point was to not resect the bowel due to it looking viable and pink and placing a small drain at the port incision. 2-0 nylon used to secure this, which was placed in the dependent pelvis and near questionable bowel. Then, decision was made to repair the right inguinal hernia. This was done in an open technique. The patient had a previous tummy tuck scar. Incision was done along the tummy tuck scar, 5 cm. The tummy tuck created adhesion and distortion of anatomy; however, #15 blade used followed by Bovie cautery to incise along the scar of the tummy tuck incision. This was done down to the external oblique fascia. Stab jenna was made with a 15 blade in the direction of the external oblique fibers. Metzenbaum scissors were used to run towards the external ring and then proximal. Hemostats placed on the external oblique fascia. Ilioinguinal nerve was cut and removed. Large deep hernia defect noted. The inguinal floor was somewhat thin. A 3 x 6 atrium mesh was obtained. The pubic tubercle was palpated. 0 Ethibonds were used to secure the atrial mesh to the pubic tubercle along the shelving edge and conjoined tendon. The mesh noticed to sit flat and was well secured. The external oblique was then repaired with a 2-0 Vicryl. Local anesthetic injected. The external ring was recreated. Hemostasis was obtained. Brandie's fascia was closed with 2-0 Vicryl. The subcutaneous 3-0 Vicryl suture was done followed by a 4-0 Monocryl subcuticular suture. The hernia defect noted to be intact. Abdomen then desufflated. Ports were removed. The ports were closed with 4-0 Monocryl. Sterile dressing was placed. The patient tolerated procedure well. No intraoperative complications. All lap and instrument counts were correct at the end of the procedure. The patient was extubated and taken to the PACU. MD MARQUISE Jacobson/venus , 11:20 PM Assessment and Plan - Assessment (1) Small bowel obstruction Code(s): K56.609 - Unspecified intestinal obstruction, unspecified as to partial versus complete obstruction Status: Acute (2) Incarcerated right inguinal hernia Code(s): K40.30 - Unilateral inguinal hernia, with obstruction, without gangrene , not specified as recurrent Status: Acute (3) Hypertension Code(s): I10 - Essential (primary) hypertension Status: Acute (4) Hypothyroidism Code(s): E03.9 - Hypothyroidism, unspecified Status: Acute (5) Urinary tract infection Code(s): N39.0 - Urinary tract infection, site not specified Status: Acute (6) COPD (chronic obstructive pulmonary disease) Code(s): J44.9 - Chronic obstructive pulmonary disease, unspecified Status: Acute - Plan This patient is a 67 y/o female with history of hypertension, COPD , hernia repair, who presented to ER with constipation. She says that she hasn't had any bowel movement since last week and she couldn't pass any gas. Came into the emergency room for evaluation and treatment Small bowel obstruction related to incarceration of right inguinal hernia Unspecified intestinal obstruction, unspecified as to partial versus complete obstruction, Acute Incarcerated right inguinal hernia Unilateral inguinal hernia, with obstruction, without gangrene, not specified as recurrent , Acute -Status post diagnostic laparoscopy/laparoscopic reduction of inguinal hernia/ open right inguinal hernia repair with mesh with Dr. Souza -NG tube to low intermittent suction for distended stomach -Hold IV fluid, pt tolerating PO diet, Bilateral LE Edema -Incision care, RG drain management -Pain medication with bowel regimen -continue Reglan, add Zofran prn for nausea -General Surgeon Dr Souza, following: Plan for another surgery/SB resection if no improvement -Restart on stool softener per Dr. Souza recommendation -still have having abdominal discomfort, some nausea, no vomiting, with diarrhea /loose stools -Small bowel follow through with GI : keep NG tube out, advance diet -Patient tolerating p.o. diet, denies any abdominal pain, no nausea no vomiting , no diarrhea -c/o constipation, add metamucil, monitor stools Hx PE, per patient previously on Xarelto for years, finished with treatment -continue on Lovenox for DVT prophylaxis , Gen. Surgeon agreed -increase ambulation COPD (chronic obstructive pulmonary disease) Chronic obstructive pulmonary disease, unspecified, Acute -No shortness of breath, no wheezes -Continue DuoNeb treatment as needed -Monitor respiratory status Hypertension Essential (primary) hypertension , Acute -Blood pressure controlled, in the low side -Continue Coreg, d/c amlodipine -Monitor blood pressure LE Edema -Hydrochlorothiazide was on hold since admission, restarted and increase dose -add ely hose -elevate LE while in bed, improving -d/c IVF, pt tolerating PO diet -Monitor BMP Hypothyroidism -Continue levothyroxine -Monitor TSH and T4 Hypokalemia Likely due to GI losses -improving, K 4.0 on 05/23 -Replaced with KCL effervescent and daily -Monitor BMP DVT prophylaxis: SCD, continue Lovenox Code Status: full code Discussed Condition With: patient and nurse Discharge Planning: Plan for discharge when cleared with GI. Anticipate d/c in 48 hours-72 hours when cleared with GI, more likely 05/25
[2018-05-24] MEDS: Psyllium Fiber SF/GF 6 GM Packet PO SCH (16:44)
[2018-05-24] MEDS ORDERED: Furosemide 20 MG Tablet PO ONE (17:31)
[2018-05-24] MEDS: LORazepam 1 MG Tablet PO PRN (21:39)
[2018-05-25] MEDS: Morphine Sulfate Inj 2 MG/ML Vial IV.PUSH PRN (07:27)
[2018-05-25 07:58] LABS: Anion Gap 8 meq/L (5-15); Blood Urea Nitrogen 1 mg/dL (7-18); Calcium 7.9 mg/dL (8.5-10.1); Chloride 101 meq/L (98-107); Glomerular Filtration Rate Greater Than 89 mL/min (>89); Glucose,Random 97 mg/dL (74-106); Potassium 3.4 meq/L (3.5-5.1)
[2018-05-25 07:59] LABS: Sodium 143 meq/L (136-145)
[2018-05-25] MEDS: Ciprofloxacin 500 MG Tablet PO SCH (09:19)
[2018-05-25] MEDS: Potassium Chloride 25 MEQ Effervescent Tablet PO SCH (09:20)
[2018-05-25] MEDS: Psyllium Fiber SF/GF 6 GM Packet PO SCH (09:21)
[2018-05-25] MEDS: Pantoprazole Sodium 20 MG DR Tablet PO SCH (09:21)
[2018-05-25] MEDS: Enoxaparin Inj 40 MG/0.4 ML Syringe SQ SCH (09:21)
[2018-05-25] MEDS: hydroCHLOROthiazide 25 MG Tablet PO SCH (09:22)
[2018-05-25] MEDS: Senna/Docusate Sodium 8.6/50 MG Tablet PO SCH (09:22)
[2018-05-25] MEDS: Budesonide-Formoterol 160/4.5 MCG 6 GM Inhaler INH SCH (09:22)
[2018-05-25] MEDS: Amoxicillin/Clavulanate 500/125 MG Tablet PO SCH (09:23)
[2018-05-25] MEDS: Carvedilol 12.5 MG Tablet PO SCH (09:28)
[2018-05-25] MEDS: Polyethylene Glycol 3350 17 GM Packet PO SCH (09:29)
--- NOTE | 2018-05-25 11:04 | P.PNIM ---
Subjective Interval history: Follow-up small bowel obstruction, status post diagnostic lap with right inguinal hernia repair, abdominal pain,abdominal distention, nausea, hypertension, COPD. Patient seen and examined laying in bed, complaining about right abdominal incision, and swelling under the hernia incision. Patient also complaining of constipation stated did not have bowel movement yesterday either. Discussed with the nursing to give milk of magnesia, nurse in the room with the patient. Patient denies any headache or dizziness, denies any pain, chest pain or shortness of breath, denies any nausea or vomiting. Denies any fever or chills. Physical Exam Vital signs: Vital Signs 05/24/18 12:00 05/24/18 16:00 05/24/18 19:58 Temperature 97.2 F L 97.8 F Pulse Rate 95 H 83 Respiratory Rate 18 18 18 Blood Pressure 90/52 L 96/68 L Pulse Oximetry 95 96 05/24/18 20:00 05/25/18 00:00 05/25/18 08:00 Temperature 97.2 F L 97.3 F L 97.6 F Pulse Rate 75 71 85 Respiratory Rate 17 16 18 Blood Pressure 96/52 L 98/52 L 92/56 L Pulse Oximetry 94 L 94 L 96 Intake & Output 05/24/18 05/25/18 05/25/18 18:59 06:59 18:59 Intake Total 2160 / 2160 760 / 760 Balance 2160 / 2160 760 / 760 Weight 78 kg Intake: Oral 2160 / 2160 760 / 760 Other: # Voids 7 3 Narrative: GENERAL: Well-developed, well-nourished, female in no apparent distress SKIN: Warm and dry. HEAD: Atraumatic. Normocephalic. EYES: Pupils equal and round. No scleral icterus. No injection or drainage. ENT: No nasal bleeding or discharge. Mucous membranes pink and moist. NECK: Trachea midline. No JVD. CARDIOVASCULAR: Regular rate and rhythm. RESPIRATORY: No accessory muscle use. Clear to auscultation. Breath sounds equal bilaterally. GASTROINTESTINAL: Abdomen soft, slight abdominal tenderness on right lower quadrant/inguinal site on palpation, nondistended. Hepatic and splenic margins not palpable. Multiple left abdominal incisions with Steri-Strips dry and intact , right inguinal incision with Steri-Strips, clean, dry and intact with mild bruising no redness no drainage healing well MUSCULOSKELETAL: Extremities without clubbing, cyanosis,with bilateral LE trace edema. No obvious deformities. NEUROLOGICAL: Awake and alert. No obvious cranial nerve deficits. Motor grossly within normal limits. Generalized weakness with moving all 4 extremities. Normal speech. PSYCHIATRIC: Appropriate mood and affect; insight and judgment normal. - Urinary Catheter Management straight cath 16fr Cath placed during this visit: no Results - Labs CBC & Chem 7: 05/23/18 08:12 05/25/18 06:45 Laboratory Results - last 24 hr 05/25/18 06:45 Sodium 143 Potassium 3.4 L Chloride 101 Carbon Dioxide 34.0 H Anion Gap 8 BUN 1 L Creatinine 0.55 Estimated GFR Greater than 89 Random Glucose 97 Calcium 7.9 L Microbiology 05/22/18 19:25 Clean Catch Urine Urine Culture - Final Escherichia coli - Procedures 05/15/2018 PREOPERATIVE DIAGNOSIS: Small bowel obstruction. POSTOPERATIVE DIAGNOSIS: Small-bowel obstruction from incarceration of right inguinal hernia. SURGEON: Eliseo Souza MD PROCEDURE PERFORMED: 1. Diagnostic laparoscopy. 2. Laparoscopic reduction of inguinal hernia. 3. Open right inguinal hernia repair with mesh, 3 x 6 atrium mesh. GIFTS OFFICER: Trenton De Leon MD. ANESTHESIA: GETA. IV FLUIDS: See anesthesia sheet. ESTIMATED BLOOD LOSS: 10 mL. DRAINS: A 10-[place] flat Ranjit drain. WOUND CLASSIFICATION: Clean. SPECIMENS: None. FINDINGS: Large right inguinal hernia, indurated ischemic mesentery. Bowel appeared viable, but somewhat hemorrhagic to the small bowel causing bowel obstruction with dilated proximal loops and decompressed distal loops. INDICATIONS FOR PROCEDURE: The patient is a 67-year-old female who presented with acute onset of abdominal pain and abdominal distention. The patient with a history of Aaron fundoplication and unable to burp or vomit. She had CT scan workup showing a significantly dilated bowel loops with decompressed distal bowel loops. Right inguinal hernia that did not contain any small bowel on CT scan and a small bowel follow through showing non-passes of contrast at 4-1/2 hours. Decision was made for diagnostic laparoscopy, laparoscopic lysis of adhesion with possible bowel resection. DETAILS OF PROCEDURE: The patient was taken to the operating suite, placed in supine position. She was prepped and draped in the usual sterile fashion after induction of general endotracheal anesthesia. Brief timeout done stating correct patient, procedure, surgical site, and all were in agreement with this. Attention first directed to the left upper quadrant where local anesthetic was injected. A small stab jenna incision was made with a 15 blade. A Visiport 5 mm Optiview port was done to enter the abdomen safely. Abdomen insufflated to 15 mm pneumoperitoneum. On cursory inspection, no evidence of injury. The abdomen was noted to be markedly dilated. There was noted to be serosanguineous fluid in the dependent pelvis. Further, it was noted a right inguinal hernia with bowel mesentery contained within creating bowel obstruction. Two other ports placed in the left lower quadrant and left mid quadrant. The mesentery was reduced from the hernia. Hernia was somewhat large containing sac. The bowel noted to be viable, but somewhat hemorrhagic and noted to be patent. The mesentery was somewhat indurated and also somewhat hemorrhagic, but also noted to be relatively viable. Decision at this point was to not resect the bowel due to it looking viable and pink and placing a small drain at the port incision. 2-0 nylon used to secure this, which was placed in the dependent pelvis and near questionable bowel. Then, decision was made to repair the right inguinal hernia. This was done in an open technique. The patient had a previous tummy tuck scar. Incision was done along the tummy tuck scar, 5 cm. The tummy tuck created adhesion and distortion of anatomy; however, #15 blade used followed by Bovie cautery to incise along the scar of the tummy tuck incision. This was done down to the external oblique fascia. Stab jenna was made with a 15 blade in the direction of the external oblique fibers. Metzenbaum scissors were used to run towards the external ring and then proximal. Hemostats placed on the external oblique fascia. Ilioinguinal nerve was cut and removed. Large deep hernia defect noted. The inguinal floor was somewhat thin. A 3 x 6 atrium mesh was obtained. The pubic tubercle was palpated. 0 Ethibonds were used to secure the atrial mesh to the pubic tubercle along the shelving edge and conjoined tendon. The mesh noticed to sit flat and was well secured. The external oblique was then repaired with a 2-0 Vicryl. Local anesthetic injected. The external ring was recreated. Hemostasis was obtained. Brandie's fascia was closed with 2-0 Vicryl. The subcutaneous 3-0 Vicryl suture was done followed by a 4-0 Monocryl subcuticular suture. The hernia defect noted to be intact. Abdomen then desufflated. Ports were removed. The ports were closed with 4-0 Monocryl. Sterile dressing was placed. The patient tolerated procedure well. No intraoperative complications. All lap and instrument counts were correct at the end of the procedure. The patient was extubated and taken to the PACU. MD MARQUISE Jacobson/venus , 11:20 PM Assessment and Plan - Assessment (1) Small bowel obstruction Code(s): K56.609 - Unspecified intestinal obstruction, unspecified as to partial versus complete obstruction Status: Acute (2) Incarcerated right inguinal hernia Code(s): K40.30 - Unilateral inguinal hernia, with obstruction, without gangrene , not specified as recurrent Status: Acute (3) Hypertension Code(s): I10 - Essential (primary) hypertension Status: Acute (4) Hypothyroidism Code(s): E03.9 - Hypothyroidism, unspecified Status: Acute (5) Urinary tract infection Code(s): N39.0 - Urinary tract infection, site not specified Status: Acute (6) COPD (chronic obstructive pulmonary disease) Code(s): J44.9 - Chronic obstructive pulmonary disease, unspecified Status: Acute - Plan This patient is a 67 y/o female with history of hypertension, COPD , hernia repair, who presented to ER with constipation. She says that she hasn't had any bowel movement since last week and she couldn't pass any gas. Came into the emergency room for evaluation and treatment Small bowel obstruction related to incarceration of right inguinal hernia Unspecified intestinal obstruction, unspecified as to partial versus complete obstruction, Acute Incarcerated right inguinal hernia Unilateral inguinal hernia, with obstruction, without gangrene, not specified as recurrent , Acute -Status post diagnostic laparoscopy/laparoscopic reduction of inguinal hernia/ open right inguinal hernia repair with mesh with Dr. Souza -NG tube to low intermittent suction for distended stomach -Hold IV fluid, pt tolerating PO diet, Bilateral LE Edema -Incision care, RG drain management -Pain medication with bowel regimen -continue Reglan, add Zofran prn for nausea -General Surgeon Dr Souza, following: Plan for another surgery/SB resection if no improvement -Restart on stool softener per Dr. Souza recommendation -still have having abdominal discomfort, some nausea, no vomiting, with diarrhea /loose stools -Small bowel follow through with GI : keep NG tube out, advance diet -Patient tolerating p.o. diet, denies any abdominal pain, no nausea no vomiting , no diarrhea -c/o constipation, increase Miralax and senna. Add MOM laxative prn, monitor stools. Hx PE, per patient previously on Xarelto for years, finished with treatment -continue on Lovenox for DVT prophylaxis , Gen. Surgeon agreed -increase ambulation COPD (chronic obstructive pulmonary disease) Chronic obstructive pulmonary disease, unspecified, Acute -No shortness of breath, no wheezes -Continue DuoNeb treatment as needed -Monitor respiratory status Hypertension Essential (primary) hypertension , Acute -Blood pressure controlled, in the low side -Continue Coreg, d/c amlodipine -Monitor blood pressure LE Edema -Hydrochlorothiazide was on hold since admission, restarted and increase dose -add ely hose, -elevate LE while in bed -d/c IVF, pt tolerating PO diet -Monitor BMP -improving Hypothyroidism -Continue levothyroxine -Monitor TSH and T4 Hypokalemia Likely due to GI losses -improving, K 4.0 on 05/23 -Replaced with KCL effervescent and increase dose to TID -Monitor BMP DVT prophylaxis: SCD, continue Lovenox Code Status: full code Discussed Condition With: patien and nurses Gen surgery : Kathy Childs Discharge Planning: Plan for discharge when cleared with GI. Anticipate d/c in 48 hours-72 hours when cleared with GI, more likely 05/25
--- NOTE | 2018-05-25 11:05 | P.PNGS ---
Subjective Patient reports: feels better, pain is less, bowel movement Physical Exam Vital signs: Vital Signs 05/24/18 12:00 05/24/18 16:00 05/24/18 19:58 Temperature 97.2 F L 97.8 F Pulse Rate 95 H 83 Respiratory Rate 18 18 18 Blood Pressure 90/52 L 96/68 L Pulse Oximetry 95 96 05/24/18 20:00 05/25/18 00:00 05/25/18 08:00 Temperature 97.2 F L 97.3 F L 97.6 F Pulse Rate 75 71 85 Respiratory Rate 17 16 18 Blood Pressure 96/52 L 98/52 L 92/56 L Pulse Oximetry 94 L 94 L 96 Intake & Output 05/24/18 05/25/18 05/25/18 18:59 06:59 18:59 Intake Total 2160 / 2160 760 / 760 Balance 2160 / 2160 760 / 760 Weight 78 kg Intake: Oral 2160 / 2160 760 / 760 Other: # Voids 7 3 - Routine Abdominal Exam Present: soft (right groin incisional tenderness, minimal distension) - Urinary Catheter Management straight cath 16fr Cath placed during this visit: no Results - Labs 05/23/18 08:12 05/25/18 06:45 Laboratory Results - last 24 hr 05/25/18 06:45 Sodium 143 Potassium 3.4 L Chloride 101 Carbon Dioxide 34.0 H Anion Gap 8 BUN 1 L Creatinine 0.55 Estimated GFR Greater than 89 Random Glucose 97 Calcium 7.9 L - Imaging Imaging: ITS Impressions Abdomen/Pelvis CT 05/12/18 20:18 CONCLUSION: 1. CT findings of a small bowel obstruction with a transition identified in the right lateral abdomen in the region of the terminal ileum. The distal terminal ileum is completely decompressed. 2. Right inguinal hernia measuring 5 cm in diameter again contains fat and fluid. It also appears to contain the right-sided dome or urachus of the urinary bladder. 3. Small moderate-sized hiatal hernia. Abdomen X-Ray 05/19/18 08:00 CONCLUSION: There has been interval placement of a nasogastric tube with decompression of the stomach. No findings to indicate a bowel obstruction identified. There is gas and stool identified throughout the small bowel and colon. Small Bowel X-Ray 05/21/18 00:00 CONCLUSION: Negative for obstruction Assessment and Plan - Assessment (1) Incarcerated right inguinal hernia Code(s): K40.30 - Unilateral inguinal hernia, with obstruction, without gangrene , not specified as recurrent Status: Acute - Plan 67 year old female s/p dx lap; open RIGHT inguinal hernia repair; RG drain placement -reg soft diet - lasix per medicine for swelling - po pain control - bowel regimen increase - d/c planning - f/u 1 week
[2018-05-25] MEDS ORDERED: Senna/Docusate Sodium 8.6/50 MG Tablet PO SCH (12:30)
[2018-05-25] MEDS ORDERED: Potassium Chloride 25 MEQ Effervescent Tablet PO SCH (13:00)
[2018-05-25] MEDS ORDERED: Magnesium Citrate Liq 300 ML Bottle PO ONE (14:00)
--- NOTE | 2018-05-25 15:11 | P.DS ---
Date of admission: 05/12/18 22:55 Primary care physician: PROVIDER NON STAFF Attending physician on discharge: Curt Babcock Anticipated date of discharge: 05/25/18 Brief History from admission: patient is a 67 y/o female with history of hypertension, COPD , hernia repair, who presented to ER with constipation.she says that she hasn't had any bowel movement since last week and she couldn't pass any gas. later she started to have generalized abdominal discomfort. she had some nausea but with no emesis. she denies any fever or chills. Patient update on day of discharge: Follow-up small bowel obstruction, status post diagnostic lap with right inguinal hernia repair, abdominal pain,abdominal distention, nausea, hypertension, COPD. Patient seen and examined laying in bed, complaining about right abdominal incision, and swelling under the hernia incision. Patient also complaining of constipation stated did not have bowel movement yesterday either. Discussed with the nursing to give milk of magnesia, nurse in the room with the patient. Patient denies any headache or dizziness, denies any pain, chest pain or shortness of breath, denies any nausea or vomiting. Denies any fever or chills. DS: Diagnosis - Discharge Diagnosis (1) Small bowel obstruction Status: Acute (2) Incarcerated right inguinal hernia Status: Acute (3) Hypertension Status: Acute (4) Hypothyroidism Status: Acute (5) Urinary tract infection Status: Acute (6) COPD (chronic obstructive pulmonary disease) Status: Acute DS: Medications - Discharge Medications Prescriptions: ciprofloxacin HCl 500 mg PO Q12HR 5 Days #10 tab hydrocodone-acetaminophen [[place]] 1 tab PO Q4H #18 tab ondansetron HCl [Zofran] 4 mg PO Q6H PRN #15 tab PRN Reason: Nausea/vomiting polyethylene glycol 3350 17 gm PO BID 30 Days #60 ea potassium bicarb and chloride 25 meq PO TID 30 Days #90 ea sennosides-docusate sodium [Senna Plus] 2 tab PO BID 30 Days #60 tab DS: Summary Hospital Course: This patient is a 67 y/o female with history of hypertension, COPD , hernia repair, who presented to ER with constipation. She says that she hasn't had any bowel movement since last week and she couldn't pass any gas. Came into the emergency room for evaluation and treatment Small bowel obstruction related to incarceration of right inguinal hernia Unspecified intestinal obstruction, unspecified as to partial versus complete obstruction, Acute Incarcerated right inguinal hernia Unilateral inguinal hernia, with obstruction, without gangrene, not specified as recurrent , Acute -Status post diagnostic laparoscopy/laparoscopic reduction of inguinal hernia/ open right inguinal hernia repair with mesh with Dr. Souza - Time Spent with Patient Total time spent providing and/or coordinating discharge services: Greater than 30 minutes - Quality: VTE Deep Vein Thrombosis/Pulmonary Embolism Present on Admission: No Exam Vital signs: Vital Signs 05/24/18 16:00 05/24/18 19:58 05/24/18 20:00 Temperature 97.8 F 97.2 F L Pulse Rate 83 75 Respiratory Rate 18 18 17 Blood Pressure 96/68 L 96/52 L Pulse Oximetry 96 94 L 05/25/18 00:00 05/25/18 08:00 05/25/18 12:00 Temperature 97.3 F L 97.6 F 98.1 F Pulse Rate 71 85 100 H Respiratory Rate 16 18 19 Blood Pressure 98/52 L 92/56 L 107/61 Pulse Oximetry 94 L 96 98 Intake & Output 05/24/18 05/25/18 05/25/18 18:59 06:59 18:59 Intake Total 2160 / 2160 760 / 760 Balance 2160 / 2160 760 / 760 Weight 78 kg Intake: Oral 2160 / 2160 760 / 760 Other: # Voids 7 3 Date of Last Bowel Movement 05/24/18 Narrative: GENERAL: Well-developed, well-nourished, female in no apparent distress SKIN: Warm and dry. HEAD: Atraumatic. Normocephalic. EYES: Pupils equal and round. No scleral icterus. No injection or drainage. ENT: No nasal bleeding or discharge. Mucous membranes pink and moist. NECK: Trachea midline. No JVD. CARDIOVASCULAR: Regular rate and rhythm. RESPIRATORY: No accessory muscle use. Clear to auscultation. Breath sounds equal bilaterally. GASTROINTESTINAL: Abdomen soft, slight abdominal tenderness on right lower quadrant/inguinal site on palpation, nondistended. Hepatic and splenic margins not palpable. Multiple left abdominal incisions with Steri-Strips dry and intact , right inguinal incision with Steri-Strips, clean, dry and intact with mild bruising no redness no drainage healing well MUSCULOSKELETAL: Extremities without clubbing, cyanosis,with bilateral LE trace edema. No obvious deformities. NEUROLOGICAL: Awake and alert. No obvious cranial nerve deficits. Motor grossly within normal limits. Generalized weakness with moving all 4 extremities. Normal speech. PSYCHIATRIC: Appropriate mood and affect; insight and judgment normal. Results Procedures completed during hospitalization: 05/15/2018 PREOPERATIVE DIAGNOSIS: Small bowel obstruction. POSTOPERATIVE DIAGNOSIS: Small-bowel obstruction from incarceration of right inguinal hernia. SURGEON: Eliseo Souza MD PROCEDURE PERFORMED: 1. Diagnostic laparoscopy. 2. Laparoscopic reduction of inguinal hernia. 3. Open right inguinal hernia repair with mesh, 3 x 6 atrium mesh. BEEF CATTLE GRAZIER: Trenton De Leon MD. ANESTHESIA: GETA. IV FLUIDS: See anesthesia sheet. ESTIMATED BLOOD LOSS: 10 mL. DRAINS: A 10-Spanish flat Ranjit drain. WOUND CLASSIFICATION: Clean. SPECIMENS: None. FINDINGS: Large right inguinal hernia, indurated ischemic mesentery. Bowel appeared viable, but somewhat hemorrhagic to the small bowel causing bowel obstruction with dilated proximal loops and decompressed distal loops. INDICATIONS FOR PROCEDURE: The patient is a 67-year-old female who presented with acute onset of abdominal pain and abdominal distention. The patient with a history of Aaron fundoplication and unable to burp or vomit. She had CT scan workup showing a significantly dilated bowel loops with decompressed distal bowel loops. Right inguinal hernia that did not contain any small bowel on CT scan and a small bowel follow through showing non-passes of contrast at 4-1/2 hours. Decision was made for diagnostic laparoscopy, laparoscopic lysis of adhesion with possible bowel resection. DETAILS OF PROCEDURE: The patient was taken to the operating suite, placed in supine position. She was prepped and draped in the usual sterile fashion after induction of general endotracheal anesthesia. Brief timeout done stating correct patient, procedure, surgical site, and all were in agreement with this. Attention first directed to the left upper quadrant where local anesthetic was injected. A small stab jenna incision was made with a 15 blade. A Visiport 5 mm Optiview port was done to enter the abdomen safely. Abdomen insufflated to 15 mm pneumoperitoneum. On cursory inspection, no evidence of injury. The abdomen was noted to be markedly dilated. There was noted to be serosanguineous fluid in the dependent pelvis. Further, it was noted a right inguinal hernia with bowel mesentery contained within creating bowel obstruction. Two other ports placed in the left lower quadrant and left mid quadrant. The mesentery was reduced from the hernia. Hernia was somewhat large containing sac. The bowel noted to be viable, but somewhat hemorrhagic and noted to be patent. The mesentery was somewhat indurated and also somewhat hemorrhagic, but also noted to be relatively viable. Decision at this point was to not resect the bowel due to it looking viable and pink and placing a small drain at the port incision. 2-0 nylon used to secure this, which was placed in the dependent pelvis and near questionable bowel. Then, decision was made to repair the right inguinal hernia. This was done in an open technique. The patient had a previous tummy tuck scar. Incision was done along the tummy tuck scar, 5 cm. The tummy tuck created adhesion and distortion of anatomy; however, #15 blade used followed by Bovie cautery to incise along the scar of the tummy tuck incision. This was done down to the external oblique fascia. Stab jenna was made with a 15 blade in the direction of the external oblique fibers. Metzenbaum scissors were used to run towards the external ring and then proximal. Hemostats placed on the external oblique fascia. Ilioinguinal nerve was cut and removed. Large deep hernia defect noted. The inguinal floor was somewhat thin. A 3 x 6 atrium mesh was obtained. The pubic tubercle was palpated. 0 Ethibonds were used to secure the atrial mesh to the pubic tubercle along the shelving edge and conjoined tendon. The mesh noticed to sit flat and was well secured. The external oblique was then repaired with a 2-0 Vicryl. Local anesthetic injected. The external ring was recreated. Hemostasis was obtained. Brandie's fascia was closed with 2-0 Vicryl. The subcutaneous 3-0 Vicryl suture was done followed by a 4-0 Monocryl subcuticular suture. The hernia defect noted to be intact. Abdomen then desufflated. Ports were removed. The ports were closed with 4-0 Monocryl. Sterile dressing was placed. The patient tolerated procedure well. No intraoperative complications. All lap and instrument counts were correct at the end of the procedure. The patient was extubated and taken to the PACU. MD MARQUISE Jacobson/venus , 11:20 PM Labs on day of discharge: Labs from last 24 hours 05/25/18 06:45 Sodium 143 Potassium 3.4 L Chloride 101 Carbon Dioxide 34.0 H Anion Gap 8 BUN 1 L Creatinine 0.55 Estimated GFR Greater than 89 Random Glucose 97 Calcium 7.9 L - Impressions ITS Impressions Abdomen/Pelvis CT 05/12/18 20:18 CONCLUSION: 1. CT findings of a small bowel obstruction with a transition identified in the right lateral abdomen in the region of the terminal ileum. The distal terminal ileum is completely decompressed. 2. Right inguinal hernia measuring 5 cm in diameter again contains fat and fluid. It also appears to contain the right-sided dome or urachus of the urinary bladder. 3. Small moderate-sized hiatal hernia. Abdomen X-Ray 05/19/18 08:00 CONCLUSION: There has been interval placement of a nasogastric tube with decompression of the stomach. No findings to indicate a bowel obstruction identified. There is gas and stool identified throughout the small bowel and colon. Small Bowel X-Ray 05/21/18 00:00 CONCLUSION: Negative for obstruction Discharge Plan - Discharge Disposition Patient Disposition: W/Home Health Service - Discharge Condition Condition: Stable - Discharge Order Discharge Orders: Discharge Order (Routine); Ordered 05/25/18 Ordered By: Jaz Perez - Discharge Details Discharge Comment: Follow up with PCP 1-week - Physicians Team Primary Care Provider: NON STAFF,PROVIDER Attending Provider: Curt Babcock Other Providers: Eliseo Souza MD ; Surgeons,[facility] ; [employer], Insurance
[2018-05-25] MEDS ORDERED: Polyethylene Glycol 3350 17 GM Packet PO SCH (21:00)
== END 2018-05-25 16:05 | disposition home health service (06) ==
LOC: PHED 19:37 → PHEDA 22:55 → PH3 05-13 00:03 → N07 05-14 18:47
PROVIDERS: ADMIT Internal Medicine; ATTEND Internal Medicine